=== PATIENT | female | born 1955 | race Caucasian/White ===

== ENCOUNTER → 2017-08-10 | Day surgery (SDC) | payer OTHER, MEDICARE ==
[~2017-08-10] MED LIST: CALTRATE 600 W1 EACH PO; CARBAMAZEPINE200 MG PO; CENTRUM SILVER1 EAC3; CEPHALEXIN500 M1 PO; DEXAMETHASONE SOD PHOS 10 MG/1 ML VIAL ONE; FENTANYL CITRATE/PF 100MCG/2 ML INJ ONE; FISH OIL500 M1 PO; FLAX SEED OIL1000 MG; GABAPENTIN300 MG PO; HYDROCHLOROTHIA25 MG PO; HYDROCODONE-AP1 EAC5 PO; IOPAMIDOL 200 MG/ML 20 ML VIAL IT ONE; LIDOCAINE HCL 1% 30ML-PF VIAL ONE; LYRICA75 MG PO; MIDAZOLAM HCL 2 MG/2 ML VIAL ONE; PROPOFOL IV EMULSION 10 MG/ML 20 ML VIAL ONE; VITAMIN C500 M1 PO; Z NIACIN PO; Z.0.ADULT LOW DOSE81 PO; Z.0.CALCIUM600 MG PO; Z.0.CARAFATE1 GM PO; Z.0.LOPRESSOR25 MG PO; Z.0.PANTOPRAZOLE SO4 PO; Z.0.PRINIVIL10 MG PO; [UNRECOGNIZED DRUG - OTHER] PO
== END | disposition home or self-care (01) ==
LOC: OR 05:10
PROVIDERS: ATTEND Physical Medicine & Rehabilitation Pain Medicine
DX: M54.16 Radiculopathy, lumbar region (principal); M96.1 Postlaminectomy syndrome, not elsewhere classified; M46.1 Sacroiliitis, not elsewhere classified; G57.00 Lesion of sciatic nerve, unspecified lower limb; G89.4 Chronic pain syndrome; M25.562 Pain in left knee; Z96.643 Presence of artificial hip joint, bilateral; I10 Essential (primary) hypertension; K21.9 Gastro-esophageal reflux disease without esophagitis; F32.9 Major depressive disorder, single episode, unspecified
CPT/HCPCS: 64483; 64484; J1100; J2001; J2250; Q9966; 77003

== ENCOUNTER → 2017-12-14 | Day surgery (SDC) | payer OTHER, MEDICARE ==
[~2017-12-14] MED LIST changes: +ASPIR 8181 MG PO; +BUPIVACAINE 0.25% 30ML SDV INJ ONE; -DEXAMETHASONE SOD PHOS 10 MG/1 ML VIAL ONE; +FISH OIL 1,0001 EAC2 PO
--- OUTSIDE RECORDS SUMMARY | 2017-12-14 05:37 | XMS REPORT | Clinical Summary ---
Author Author TAWANDA [facility] Address Unknown Phone Unavailable Care Team Providers Care Emerging Solutions Executive Name Role Phone PCP Unavailable Allergies No Known Allergies Current Medications Not on file Active Problems Not on file Social History Tobacco Use Types Packs/Day Years Used Date Never Assessed Sex Assigned at Date Recorded Not on file Last Filed Vital Signs Not on file Plan of Treatment Not on file Results Not on fileafter 12/13/2016
--- OUTSIDE RECORDS SUMMARY | 2017-12-14 05:37 | XMS REPORT | Clinical Summary ---
Author Author [facility] Organization [facility] Address Unknown Phone Unavailable Care Team Providers Care Garment Parts Cutter Machine Name Role Phone CuateBerny PCP Allergies Active Allergy Reactions Severity Noted Date Comments Adhesive Tape-Silicones Other (See Comments) High 02/02/2016 "takes my skin off"=-bandaid Other Other (See Comments) High 02/02/2016 Steroid- redness Current Medications Prescription Sig. Disp. Refills Start End Date Status Date LYRICA 75 mg capsule TK 1 C PO BID AND 2 CS PO 0 01/19/20 Active QHS - 16 pantoprazole (PROTONIX) Take 40 mg by mouth as Active 40 MG EC tablet needed. hydrochlorothiazide Take 25 mg by mouth every Active (HYDRODIURIL) 25 MG morning. tablet metoprolol tartrate Take 25 mg by mouth every Active (LOPRESSOR) 25 MG tablet morning. TAKE THE MORNING OF SURGERY lisinopril Take 10 mg by mouth every Active (PRINIVIL,ZESTRIL) 10 MG morning. tablet CALCIUM CARBONATE Take 1 tablet by mouth Active (CALTRATE 600 ORAL) every morning. Stop 08/12 MULTIVITAMIN ORAL Take 1 tablet by mouth Active every morning. STOP 08/12 ascorbic acid (vitamin C) Take 1,000 mg by mouth Active 1000 MG tablet daily. STOP 02/01 CINNAMON BARK (CINNAMON Take by mouth daily. Active ORAL) HYDROcodone-acetaminophen TK 2 TS PO Q 6 H PRN P Active (NORCO 10-325) 10-325 mg MAX 8 TS D per tablet furosemide (LASIX) 40 MG TK SS TO ONE T PO QD PRn Active tablet SWELLING gabapentin (NEURONTIN) gabapentin 300 mg capsule Active 300 MG capsule 1 bid and 2 At hs carBAMazepine (TEGretol) TK 1 T PO QAM AND 1 T PO 0 01/10/20 Active 200 mg tablet QPM AND 2 TS PO QHS 17 ondansetron (ZOFRAN) 8 MG TK 1 T PO Q 8 H PRN N 0 02/23/20 Active tablet 17 Active Problems Problem Noted Date Hip pain, left 03/10/2017 Chronic pain of left knee 03/10/2017 Aftercare following left hip joint replacement surgery 09/13/2016 Status post revision of total hip replacement 09/13/2016 Mechanical complication of hip prosthesis 08/05/2016 History of total left hip arthroplasty 06/07/2016 Pain in left hip 06/07/2016 History of arthroplasty of left hip 02/16/2016 Primary osteoarthritis of left hip 02/10/2016 Hip pain 02/04/2016 Osteoarthritis of hip 02/04/2016 Encounters Date Type Specialty Care Team Description 03/08/2017 Office Visit Orthopedic Surgery Magi, Mason Steven II, Pain in left hip (Primary MD Dx); Status post revision of total hip replacement; Hip pain, left; Chronic pain of left knee; Primary osteoarthritis of left knee after 12/13/2016 Family History Medical History Relation Name Comments Diabetes Brother STEPHIE Heart disease Brother STEPHIE Lymphoma Brother ANA Alcohol abuse Brother SHERIDAN Diabetes Brother MARIAELENA Diabetes Mother Leukemia Mother Leukemia Sister AMRIT No Known Problems Sister DAWOOD Leukemia Sister SABAS Relation Name Status Comments Brother STEPHIE Alive Brother ANA Alive Brother SHERIDAN Brother BENNETT PF MASSIVE HEART ATTACK Brother MARIAELENA Father OF HEART ATTACK Mother OF HEART ATTACK Sister AMRIT Alive Sister DAWOOD Alive Sister SABAS Alive Social History Tobacco Use Types Packs/Day Years Used Date Never Smoker Alcohol Use Drinks/Week oz/Week Comments No Sex Assigned at Date Recorded Not on file Last Filed Vital Signs Vital Sign Reading Time Taken Blood Pressure - - Pulse - - Temperature - - Respiratory Rate - - Oxygen Saturation - - Inhaled Oxygen - - Concentration Weight 129 kg (285 lb) 03/08/2017 10:12 AM CDT Height 170.2 cm (5' 7") 03/08/2017 10:12 AM CDT Body Mass Index 44.64 03/08/2017 10:12 AM CDT Plan of Treatment Health Maintenance Due Date Last Done Comments CERVICAL CANCER SCREENING 1976 BREAST CANCER SCREENING 2005 COLON CANCER SCREENING 2005 SHINGRIX VACCINE (#1) 2005 ZOSTER VACCINE 2015 INFLUENZA VACCINE 02/14/2018 Implants Implanted Type Area Sales Contract Administrator Device Expiration Model / Identifier Date Serial / Lot Shell Actblr Mul-Hl Sz Ii 52mm Hip Joint Left: Hip [employer] 2025 [id number] Continuum - [id number] Implants 2 / Implanted: Qty: 1 on 02/10/2016 by / Tim Reynoso MD [id number] Stem Hip Taper Kinectiv Tech Hip Joint Left: Hip [employer] 2025 [id number] Med-Lat [id number] - [id number] Implants 0 / Implanted: Qty: 1 on 02/10/2016 by / Tim Reynoso MD [id number] Head Feml Ceramc 12/14 Taperd Hip Joint Left: Hip [employer] 2024 [id number] 36x0mm Biolox Delta - [id number] Implants 2 / Implanted: Qty: 1 on 02/10/2016 by / Tim Reynoso MD [id number] Head Feml Ceramc /14 Taperd Hip Joint Left: Hip [employer] 2025 [id number] 36x0mm Biolox Delta - [id number] Implants 2 / Implanted: Qty: 1 on 09/01/2016 by / Mason Sow II, MD [id number] Vit E Liner Neutral Ii 36 IPM Left: Hip [employer] 05/16/2020 00 8851 - [id number] IMPLANT 010 36 / Implanted: Qty: 1 on 02/10/2016 by ELIER / Tim Reynoso MD [id number] M/L Taper Kinectiv Neck Implant E1 IPM Left: Hip [employer] 2024 00 7848 - [id number] IMPLANT 012 01 / Implanted: Qty: 1 on 02/10/2016 by ELIER / Tim Reynoso MD [id number] M/L Taper Kinectiv Neck Implant Bb IPM Left: Hip [employer] 2025 00 7848 - [id number] IMPLANT 022 01 / Implanted: Qty: 1 on 09/01/2016 by DEVICES / Mason Sow II, MD [id number] Continuum Longevity Oblique Liner, IPM Left: Hip [employer] 2019 00 8755 Ii 36 X 52 - [id number] IMPLANT 010 36 / Implanted: Qty: 1 on 09/01/2016 by ELIER / Mason Sow II, MD [id number] Screw Bone Slf-Tap 6.5x30mm Trilogy Orthopedic Left: Hip [employer] [id number] - [id number] Trauma 0 / Implanted: Qty: 1 on 02/10/2016 by Carlee / Tim Reynoso MD Screw Bone Slf-Tap 6.5x25mm Trilogy Orthopedic Left: Hip [employer] [id number] - [id number] Trauma 5 / Implanted: Qty: 1 on 02/10/2016 by Carlee / Tim Reynoso MD Natasha Kinnectiv Left Hip Prosthesis Procedures Procedure Name Priority Date/Time Associated Diagnosis Comments [place] ARTHROCENTESIS Routine 03/10/2017 Primary osteoarthritis of Results for this ASPIR&/INJ MAJOR JT/BURSA 12:21 AM CDT left knee procedure are in the W/O US results section. after 12/13/2016 Results * Large Joint Arthrocentesis (03/10/2017 12:21 AM) Narrative Mason Sow II, MD 03/10/2017 12:21 AM Large Joint Arthrocentesis Consent given by: patient Supporting Documentation Indications: pain Procedure Details Location: knee - L knee Left side: Approach: anterior Left knee medications administered: 3 mL lidocaine 10 mg/mL (1 %) * XR Knee 4+ Vw Left (03/08/2017 10:49 AM) Specimen Performing Laboratory [facility] [address] [place] [address] Narrative X-rays of the knee suggest significant osteoarthrosis, I injected this today.We discussed conservative management modalities including periodic injections, weight loss, activity etc.Follow-up as needed. * XR Hip 2-3 View Left (03/08/2017 10:21 AM) Specimen Performing Laboratory [facility] [address] [place] [address] Narrative Well seated, satisfactory aligned total hip arthroplasty.No evidence of fracture, subsidence, loosening, or lysis. after 12/13/2016 Insurance Payer Benefit Subscriber ID Type Phone Address Plan / Group [facility] xxxxxxxxx HMO/PPO THCARE CHOICE/CHO ICE + MEDICARE MEDICARE xxxxxxxxxx Medicare [place], [place] PART A AND B Home:
[2017-12-14 07:15] LABS: BLOOD UREA NITROGEN 24 mg/dL (7-26); BUN/CREATININE RATIO 32 (6-25); CALCIUM 9.6 mg/dL (8.4-10.2); CARBON DIOXIDE 29 mmol/L (22-29); CHLORIDE 100 mmol/L (98-107); CREATININE, SERUM 0.75 mg/dL (0.57-1.11); EST GLOMERULAR FILTRATION RATE > 60 ML/MIN (60-); GLUCOSE 90 mg/dL (74-118); SODIUM 139 mmol/L (136-145)
== END | disposition home or self-care (01) ==
LOC: OR 05:34
PROVIDERS: ATTEND Physical Medicine & Rehabilitation Pain Medicine
DX: G50.0 Trigeminal neuralgia (principal); G90.59 Complex regional pain syndrome I of other specified site; M54.16 Radiculopathy, lumbar region; Z96.642 Presence of left artificial hip joint; M46.1 Sacroiliitis, not elsewhere classified; G57.00 Lesion of sciatic nerve, unspecified lower limb; M25.562 Pain in left knee; G89.4 Chronic pain syndrome; M48.062 Spinal stenosis, lumbar region with neurogenic claudication; M96.1 Postlaminectomy syndrome, not elsewhere classified; I10 Essential (primary) hypertension; K21.9 Gastro-esophageal reflux disease without esophagitis; F32.9 Major depressive disorder, single episode, unspecified; Z88.5 Allergy status to narcotic agent; Z01.810 Encounter for preprocedural cardiovascular examination; Z68.30 Body mass index [BMI] 30.0-30.9, adult
CPT/HCPCS: 36415; 64510; 80048; 93005; J2001; J2250; Q9966; 77003

== ENCOUNTER → 2018-01-04 | Day surgery (SDC) | payer OTHER, MEDICARE ==
[~2018-01-04] MED LIST changes: +LIDOCAINE HCL 2% LOCAL INJ 5 ML SDV VIAL INJ ONE; -MIDAZOLAM HCL 2 MG/2 ML VIAL ONE
--- OUTSIDE RECORDS SUMMARY | 2018-04-18 13:48 | XMS REPORT | Clinical Summary ---
Author Author TAWANDA [facility] Address Unknown Phone Unavailable Care Team Providers Care Occupational Health Physiotherapist Name Role Phone PCP Unavailable Allergies No Known Allergies Current Medications Not on file Active Problems Not on file Social History Tobacco Use Types Packs/Day Years Used Date Never Assessed Sex Assigned at Date Recorded Not on file Last Filed Vital Signs Not on file Plan of Treatment Not on file Results Not on fileafter 01/03/2017
--- OUTSIDE RECORDS SUMMARY | 2018-04-18 13:48 | XMS REPORT | Clinical Summary ---
Author Author [facility] Organization [facility] Address Unknown Phone Unavailable Care Team Providers Care Assistant Spa Director Name Role Phone CuateBerny PCP Allergies Active [...] replacement 09/13/2016 Mechanical complication of hip prosthesis (HCC) 08/05/2016 History of total left hip arthroplasty [...] knee; Primary osteoarthritis of left knee after 01/03/2017 Family History Medical History Relation Name Comments [...] INFLUENZA VACCINE 02/14/2018 Implants Implanted Type Area Reflow Operator Device Expiration Model / Identifier Date Serial / Lot Shell Actblr Mul-Hl Sz Ii 52mm Hip Joint Left: Hip [employer] 2025 [id number] Continuum - [id number] Implants 2 / Implanted: Qty: 1 on 02/10/2016 by / Tim Reynoso MD [id number] Stem Hip Taper Kinectiv Tech Hip Joint Left: Hip [employer] 2025 [id number] Med-Lat [id number] - [id number] Implants 0 / Implanted: Qty: 1 on 02/10/2016 by / Tim Reynoso MD [id number] Head Feml Ceramc /14 Taperd Hip Joint Left: Hip [employer] 2024 [id number] 36x0mm Biolox Delta - [id number] Implants 2 / Implanted: Qty: 1 on 02/10/2016 by / Tim Reynoso MD [id number] Head Feml Ceramc 14 Taperd Hip Joint Left: Hip [employer] 2025 [id number] 36x0mm Biolox Delta - [id number] Implants 2 / Implanted: Qty: 1 on 09/01/2016 by / Mason Sow II, MD [id number] Vit E Liner Neutral Ii 36 IPM Left: Hip [employer] 05/16/2020 00 8851 - [id number] IMPLANT 010 36 / Implanted: Qty: 1 on 02/10/2016 by ELIER / Tim Reynoso MD [id number] M/L Taper Kinectiv Neck Implant E1 IPM Left: Hip [employer] 2024 00 7848 - [id number] IMPLANT 012 01 / Implanted: Qty: 1 on 02/10/2016 by ELIER / Tim Reynoso MD [id number] M/L Taper Kinectiv Neck Implant Bb IPM Left: Hip [employer] 2025 00 7848 - [id number] IMPLANT 022 01 / Implanted: Qty: 1 on 09/01/2016 by ELIER / Mason Sow II, MD [id number] Continuum Longevity Oblique Liner, IPM Left: Hip [employer] 2019 00 8755 Ii 36 X 52 - [id number] IMPLANT 010 36 / Implanted: Qty: 1 on 09/01/2016 by DEVICES / Mason Sow II, MD [id number] Screw Bone Slf-Tap 6.5x30mm Trilogy Orthopedic Left: Hip [employer] [id number] - [id number] Trauma 0 / Implanted: Qty: 1 on 02/10/2016 by Carlee / Tim Reynoso MD Screw Bone Slf-Tap 6.5x25mm Trilogy Orthopedic Left: Hip [employer] [id number] - [id number] Trauma 5 / Implanted: Qty: 1 on 02/10/2016 by Carlee / Tim Reynoso MD Zimmer Kinnectiv Left Hip Prosthesis Procedures Procedure Name Priority Date/Time Associated Diagnosis Comments [place] ARTHROCENTESIS Routine 03/10/2017 Primary osteoarthritis of Results for this ASPIR&/INJ MAJOR JT/BURSA 12:21 AM CDT left knee procedure are in the W/O US results section. XR KNEE 4+ VW LEFT Routine 03/08/2017 Chronic pain of left knee Results for this 10:49 AM CDT procedure are in the results section. XR HIP 2-3 VIEWS LEFT Routine 03/08/2017 Pain in left hip Results for this 10:21 AM CDT procedure are in the results section. after 01/03/2017 Results * Large Joint Arthrocentesis (03/10/2017 12:21 AM) Narrative Performed At Mason Sow II, MD 03/10/2017 12:21 AM Large Joint Arthrocentesis Consent given by: patient Supporting Documentation Indications: pain Procedure Details Location: knee - L knee Left side: Approach: anterior Left knee medications administered: 3 mL lidocaine 10 mg/mL (1 %) * XR Knee 4+ Vw Left (03/08/2017 10:49 AM) Narrative Performed At [facility] X-rays of the knee suggest significant osteoarthrosis, I injected this today. We discussed conservative management modalities including periodic injections, weight loss, activity etc. Follow-up as needed. Performing Organization Address City/State/Zipcode Phone Number [facility] [address] [place] [address] * XR Hip 2-3 View Left (03/08/2017 10:21 AM) Narrative Performed At [facility] Well seated, satisfactory aligned total hip arthroplasty. No evidence of fracture, subsidence, loosening, or lysis. Performing Organization Address City/State/Zipcode Phone Number CLAUDIA FORREST [address] [place] [address] after 01/03/2017 Insurance Payer Benefit Subscriber ID Type Phone Address Plan / Group [facility] xxxxxxxxx HMO/PPO THCARE CHOICE/CHO ICE + MEDICARE MEDICARE xxxxxxxxxx Medicare [place], [place] PART A AND B Home:
== END | disposition home or self-care (01) ==
LOC: OR 05:24
PROVIDERS: ATTEND Physical Medicine & Rehabilitation Pain Medicine
DX: G50.0 Trigeminal neuralgia (principal); M54.16 Radiculopathy, lumbar region; M46.1 Sacroiliitis, not elsewhere classified; G57.00 Lesion of sciatic nerve, unspecified lower limb; M25.562 Pain in left knee; G89.4 Chronic pain syndrome; G90.511 Complex regional pain syndrome I of right upper limb; Z96.642 Presence of left artificial hip joint; I10 Essential (primary) hypertension; E66.01 Morbid (severe) obesity due to excess calories; F32.9 Major depressive disorder, single episode, unspecified; Z88.5 Allergy status to narcotic agent; Z79.82 Long term (current) use of aspirin
CPT/HCPCS: 64510; 77003; J2001 ×2; Q9966

== ENCOUNTER → 2018-03-16 | Outpatient (CLI) | payer OTHER, MEDICARE ==
[~2018-03-16] MED LIST changes: -BUPIVACAINE 0.25% 30ML SDV INJ ONE; -FENTANYL CITRATE/PF 100MCG/2 ML INJ ONE; -IOPAMIDOL 200 MG/ML 20 ML VIAL IT ONE; -LIDOCAINE HCL 1% 30ML-PF VIAL ONE; -LIDOCAINE HCL 2% LOCAL INJ 5 ML SDV VIAL INJ ONE; -PROPOFOL IV EMULSION 10 MG/ML 20 ML VIAL ONE
--- NOTE | 2018-03-16 15:50 | Diagnostic Imaging Report ---
CT scan of the LEFT HAND, WITHOUT contrast. TECHNIQUE: Standard departmental protocols were used. Coronal and sagittal reformats are available. Mild beam hardening artifacts related to the overlying splint. Dose modulation, iterative reconstruction, and/or weight based adjustment of the mA/kV was utilized to reduce the radiation dose to as low as reasonably achievable. HISTORY: Displaced fracture of base of first metacarpal bone, fall COMPARISON: None available FINDINGS: Bones: No acute displaced fracture. Prominent marginal osteophytes about the first carpometacarpal joint. The scapholunate interval is mildly widened, 4 mm. Ulnar minus variance. Joints: Severe degenerative changes of the first carpometacarpal joint with radial subluxation of the base of the first metacarpal bone. A chronic appearing ossified body along the radial side of the joint, measuring up to 8 mm. Soft tissues: Volar soft tissue fat stranding. IMPRESSION: 1. Severe osteoarthrosis of the first carpometacarpal joint. 2. Widening of the scapholunate interval, correlate for scapholunate ligament insufficiency. 3. No acute displaced fracture involving the base of the first metacarpal bone. Signed by: Dr. Flavio Heath D.O., M.M.M. on 03/16/2018 3:47 PM
== END ==
LOC: CT 13:52
PROVIDERS: ATTEND Specialist
DX: S62.232A Other displaced fracture of base of first metacarpal bone, left hand, initial encounter for closed fracture (principal)

== ENCOUNTER → 2018-05-17 | Day surgery (SDC) | payer OTHER, MEDICARE ==
[~2018-05-17] MED LIST changes: +CENTRUM SILVER1 EAC3 PO; +FENTANYL CITRATE/PF 100MCG/2 ML INJ ONE; +IOPAMIDOL 200 MG/ML 20 ML VIAL IT ONE; +LIDOCAINE HCL 1% 30ML-PF VIAL ONE; +LIDOCAINE HCL 2% LOCAL INJ 5 ML SDV VIAL INJ ONE; +MIDAZOLAM HCL 2 MG/2 ML VIAL ONE; +ONDANSETRON HCL INJ 2 MG/ML VIAL ONE; +PROPOFOL IV EMULSION 10 MG/ML 20 ML VIAL ONE; +TRIAMCINOLONE ACET 40 MG/ML VIAL ONE; +VITAMIN C1000 MG PO
--- OUTSIDE RECORDS SUMMARY | 2018-05-17 05:35 | XMS REPORT | Continuity of Care Document ---
Author Author [facility] Address Unknown Phone Unavailable Problems Problem Status Onset Date Classification Date Reported Comments Source TRIGEMINAL NEURALGIA Active 09/17/2012 [facility] TRIGEMINAL NEURALGIA Active [facility] Medications Medication Details Route Status Patient Instructions Ordering Provider Order Date Source Allergies, Adverse Reactions, Alerts Substance Category Reaction Severity Reaction type Status Date Reported Comments Source Immunizations Immunization Date Given Site Status Last Updated Comments Source Results Order Name Results Value Reference Range Date Interpretation Comments Source Vital Signs Vital Sign Value Date Comments Source Height 170.18 cm 10/10/2012 [facility] Weight 124.091 10/10/2012 [facility] Encounters Location Location Details Encounter Type Encounter Number Reason For Visit Attending Provider ADM Date DC Date Status Source [facility] MADDIE [id number] TRIGEMINAL NEURALGIA CLARI HANEY 05/23/2012 05/23/2012 Active [facility] MADDIE [id number] TRIGEMINAL NEURALGIA CLARI HANEY 10/10/2012 10/10/2012 Active [facility] MADDIE [id number] TRIGEMINAL NEURALGIA CLARI HANEY Cancel [facility] Procedures Procedure Code Date Perfomer Comments Source
--- OUTSIDE RECORDS SUMMARY | 2018-05-17 05:35 | XMS REPORT | CCD ---
Author Author Auto Generated Organization [facility] [place] [place] Address Unknown Phone Unavailable Care Team Providers Care Ball Warper Tender Name Role Phone Emiliano Hoffmann I RP Kenneth Simental CP Allergies, Adverse Reactions, Alerts Substance Reaction Status NKDA Active Vital Signs Most recent to oldest [Reference Range]: 1 Height 170.18 cm (10/10/2012 08:50:00) Weight 124.091 kg (10/10/2012 08:50:00)
--- OUTSIDE RECORDS SUMMARY | 2018-05-17 05:35 | XMS REPORT | Clinical Summary ---
Author Author [facility] Address Unknown Phone Unavailable Care Team Providers Care Alumina Plant Supervisor Name Role Phone Kraig Cuello DO PCP Allergies Active Allergy Reactions Severity Noted [...] Hip pain 02/04/2016 Osteoarthritis of hip 02/04/2016 Family History Medical History Relation Name Comments [...] OF HEART ATTACK Sister AMRIT Alive Sister DAWODO Alive Sister SABAS Alive Social History Tobacco Use Types Packs/Day Years Used Date Never Smoker Alcohol Use Drinks/Week oz/Week Comments No Sex Assigned at Date Recorded Not on file Last Filed Vital Signs Not on file Plan of Treatment Health Maintenance Due Date Last Done Comments CERVICAL CANCER SCREENING 1976 BREAST CANCER SCREENING 2005 COLON CANCER SCREENING 2005 SHINGRIX VACCINE (#1) 2005 ZOSTER VACCINE 2015 INFLUENZA VACCINE 02/14/2018 Implants Implanted Type Area Lime Vat Tender Device Expiration Model / Identifier Date Serial / Lot Shell Actblr Mul-Hl Sz Ii 52mm Hip Joint Left: Hip [employer] 10/14/2025 [id number] Continuum - [id number] Implants 2 / Implanted: Qty: 1 on 02/10/2016 by / Tim Reynoso MD [id number] Stem Hip Taper Kinectiv Tech Hip Joint Left: Hip [employer] 09/13/2025 [id number] Med-Lat [id number] - [id number] Implants 0 / Implanted: Qty: 1 on 02/10/2016 by / Tim Reynoso MD [id number] Head Feml Ceramc 12/14 Taperd Hip Joint Left: Hip [employer] 05/16/2025 [id number] 36x0mm Biolox Delta - [id number] Implants 2 / Implanted: Qty: 1 on 02/10/2016 by / Tim Reynoso MD [id number] Head Feml Ceramc 12/14 Taperd Hip Joint Left: Hip [employer] 10/14/2025 [id number] 36x0mm Biolox Delta - [id number] Implants 2 / Implanted: Qty: 1 on 09/01/2016 by / Mason Sow II, MD [id number] Vit E Liner Neutral Ii 36 IPM Left: Hip [employer] 05/16/2020 00 8851 - [id number] IMPLANT 010 36 / Implanted: Qty: 1 on 02/10/2016 by DEVICES / Tim Reynoso MD [id number] M/L Taper Kinectiv Neck Implant E1 IPM Left: Hip [employer] 08/16/2024 00 7848 - [id number] IMPLANT 012 01 / Implanted: Qty: 1 on 02/10/2016 by DEVICES / Tim Reynoso MD [id number] M/L Taper Kinectiv Neck Implant Bb IPM Left: Hip [employer] 10/14/2025 00 7848 - [id number] IMPLANT 022 01 / Implanted: Qty: 1 on 09/01/2016 by DEVICES / Mason Sow II, MD [id number] Continuum Longevity Oblique Liner, IPM Left: Hip [employer] 05/16/2020 00 8755 Ii 36 X 52 - [id number] IMPLANT 010 36 / Implanted: Qty: 1 on 09/01/2016 by DEVICES / Mason Sow II, MD [id number] Screw Bone Slf-Tap 6.5x30mm Trilogy Orthopedic Left: Hip [employer] [id number] - [id number] Trauma 0 / Implanted: Qty: 1 on 02/10/2016 by Implants / Tim Reynoso MD Screw Bone Slf-Tap 6.5x25mm Trilogy Orthopedic Left: Hip [employer] [id number] - [id number] Trauma 5 / Implanted: Qty: 1 on 02/10/2016 by Implants / Tmi Reynoso MD Zimmer Kinnectiv Left Hip Prosthesis Results Not on fileafter 05/16/2017 Insurance Payer Benefit Subscriber ID Type Phone Address Plan / Group [facility] xxxxxxxxx HMO/PPO THCARE CHOICE/CHO ICE + MEDICARE MEDICARE xxxxxxxxxx Medicare [place], [place] PART A AND B Home:
--- OUTSIDE RECORDS SUMMARY | 2018-05-17 05:35 | XMS REPORT | Clinical Summary ---
Author Author TAWANDA [facility] Address Unknown Phone Unavailable Care Team Providers Care Through Operator Name Role Phone Kraig Cuello PCP Allergies No Known Allergies Medications Not on file Active Problems Not on file Social History Date Tobacco Use Types Packs/Day Years Used Never Assessed Sex Assigned at Date Recorded Not on file Industry Job Start Date Occupation Not on file Not on file Not on file Travel End Travel History Travel Start No recent travel history available. Last Filed Vital Signs Not on file Plan of Treatment Not on file Results Not on fileafter 05/16/2017 Insurance Payer Benefit Subscriber ID Type Phone Address Plan / Group MEDICARE MEDICARE A xxxxxxxxxx Medicare [facility] H[facility]/POS CARE POS SELECT CHOICE
--- OUTSIDE RECORDS SUMMARY | 2018-05-17 05:35 | XMS REPORT ---
Author [facility] Address Unknown Phone Unavailable Care Team Providers Care Fiscal Services Manager Name Role Phone MAGDALENO CONNER Unavailable Unavailable Payers Payer Name Policy Type Policy Number Effective Date Expiration Date Problems This patient has no known problems. Allergies, Adverse Reactions, Alerts Allergy Name Allergy Type Status Severity Reaction(s) Onset Date Inactive Date Treating Clinician Comments methylprednisolone DA Active [place] 2018-02-14 00:00:00 Medications This patient has no known medications. Results Test Description Test Time Test Comments Text Results Atomic Results Result Comments CT HAND LEFT WO 2018-03-16 15:33:00 [place] [address] Patient Name: VALENCIA CASPER MR #: [id number] : 1955 Age/Sex: 62/F Req #: [id number] Adm Physician: Ordered by: MAGDALENO CONNER MD Report #: [id number] Location: CT Room/Bed: Procedure: [id number] CT/CT HAND LEFT WO Exam Date: 03/16/18 Exam Time: 1450 REPORT STATUS: Signed CT scan of the LEFT HAND, WITHOUT contrast. TECHNIQUE: Standard departmental protocols were used. Coronal and sagittal reformats are available. Mild beam hardening artifacts related to the overlying splint. Dose modulation, iterative reconstruction, and/or weight based adjustment of the mA/kV was utilized to reduce the radiation dose to as low as reasonably achievable. HISTORY: Displaced fracture of base of first metacarpal bone, fall COMPARISON: None available FINDINGS: Bones: No acute displaced fracture. Prominent marginal osteophytes about the first carpometacarpal joint. The scapholunate interval is mildly widened, 4 mm. Ulnar minus variance. Joints: Severe degenerative changes of the first carpometacarpal joint with radial subluxation of the base of the first metacarpal bone. A chronic appearing ossified body along the radial side of the joint, measuring up to 8 mm. Soft tissues: Volar soft tissue fat stranding. IMPRESSION: 1. Severe osteoarthrosis of the first carpometacarpal joint. 2. Widening of the scapholunate interval, correlate for scapholunate ligament insufficiency. 3. No acute displaced fracture involving the base of the first metacarpal bone. Signed by: Dr. Fercho Heath D.O., M.M.M. on 03/16/2018 3:47 PM Dictated By: FERCHO HEATH DO 1547 Transcribed By: ZEKE on 03/16/18 154 COPY TO: MAGDALENO CONNER MD
[2018-05-17 07:40] VITALS: BP 104/65
== END | disposition home or self-care (01) ==
LOC: OR 05:32
PROVIDERS: ATTEND Physical Medicine & Rehabilitation Pain Medicine
DX: M47.896 Other spondylosis, lumbar region (principal); M54.16 Radiculopathy, lumbar region; G89.4 Chronic pain syndrome; M48.07 Spinal stenosis, lumbosacral region; Z88.5 Allergy status to narcotic agent
CPT/HCPCS: 64493; 64494; 64495; 77003; 93005; J2001 ×2; J2250; J2405; J2704; J3301; Q9967

== ENCOUNTER → 2018-06-15 | Outpatient (CLI) | payer OTHER, MEDICARE ==
[~2018-06-15] MED LIST changes: -FENTANYL CITRATE/PF 100MCG/2 ML INJ ONE; -IOPAMIDOL 200 MG/ML 20 ML VIAL IT ONE; -LIDOCAINE HCL 1% 30ML-PF VIAL ONE; -LIDOCAINE HCL 2% LOCAL INJ 5 ML SDV VIAL INJ ONE; -MIDAZOLAM HCL 2 MG/2 ML VIAL ONE; -ONDANSETRON HCL INJ 2 MG/ML VIAL ONE; -PROPOFOL IV EMULSION 10 MG/ML 20 ML VIAL ONE; -TRIAMCINOLONE ACET 40 MG/ML VIAL ONE
--- NOTE | 2018-06-15 13:20 | Diagnostic Imaging Report ---
MRI of the right hip without contrast. History: Hip pain. Decreased range of motion. Pain worse with walking. Pain not responding to conservative management. Technique: Multiplanar multisequence MRI of the hip without contrast Findings: Metallic hardware artifact in the left hip obscures fine detail of the region. Scattered degenerative changes are seen about the visualized lower lumbar spine and pelvis. The urinary bladder and remainder of the visualized pelvic structures are grossly unremarkable. There is a curvilinear low signal intensity line in the right femoral head best seen on series 3 image 16. There is associated bone marrow edema and depression of the femoral head cortex. 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 There is superimposed advanced degenerative arthrosis in the right hip joint with regions of full-thickness articular cartilage loss, joint space narrowing and peripheral osteophytosis. There is degenerative type tearing of the labrum. There is a right hip joint effusion and synovitis which is thought to be reactive. There is no evidence to suggest greater trochanteric bursitis. The visualized neurovascular bundles are intact. The visualized muscles are normal in size, signal intensity and morphology. Impression: Findings consistent with avascular process in the right femoral head with superimposed advanced degenerative arthrosis as described above. Signed by: Dr. Kenton Beebe M.D. on 06/15/2018 1:17 PM
== END ==
LOC: MRI 11:19
PROVIDERS: ATTEND Physical Medicine & Rehabilitation Pain Medicine
DX: M25.551 Pain in right hip (principal)

== ENCOUNTER → 2018-06-29 | Outpatient (CLI) | payer OTHER, MEDICARE ==
--- NOTE | 2018-07-05 08:25 | Diagnostic Imaging Report ---
#[id number] - MGSCRBIL #BILATERAL DIGITAL SCREENING MAMMOGRAM WITH CAD: 06/29/2018 CLINICAL: Routine screening. Comparison is made to exam dated: 12/13/2013 mammogram - [facility]. Current study contains 4 films. There are scattered fibroglandular elements in both breasts. Current study was also evaluated with a Computer Aided Detection (CAD) system. There are benign vascular calcifications and calcifications in both breasts. No significant masses, calcifications, or other findings are seen in either breast. There has been no significant interval change. IMPRESSION: BENIGN There is no mammographic evidence of malignancy. A 1 year screening mammogram is recommended. The patient will be notified by letter of the results. Ceferino cuba/chance:07/04/2018 16:13:39 Ceramic Engineer: Christy CHEEK)(Inna), [facility] letter sent: Compared to Prior B9 Mammogram BI-RADS: 2 Benign
== END ==
LOC: MAMMO 13:10
PROVIDERS: ATTEND Family Medicine
DX: Z12.31 Encounter for screening mammogram for malignant neoplasm of breast (principal)
CPT/HCPCS: 77067

== ENCOUNTER → 2019-02-07 | Day surgery (SDC) | payer OTHER, MEDICARE ==
[~2019-02-07] MED LIST changes: +FENTANYL CITRATE/PF 100MCG/2 ML INJ ONE; +IOPAMIDOL 200 MG/ML 20 ML VIAL IT ONE; +LIDOCAINE HCL 1% 30ML-PF VIAL ONE; +LIDOCAINE HCL 2% LOCAL INJ 5 ML SDV VIAL INJ ONE; +MIDAZOLAM HCL 2 MG/2 ML VIAL ONE; +NORCO 10-325 T1 EACH PO; +PROPOFOL IV EMULSION 10 MG/ML 20 ML VIAL ONE; +TRIAMCINOLONE ACET 40 MG/ML VIAL ONE
--- OUTSIDE RECORDS SUMMARY | 2019-02-07 05:29 | XMS REPORT | Clinical Summary ---
Author Author [facility] Address Unknown Phone Unavailable Care Team Providers Care Outreach Rep Name Role Phone Kraig Cuello DO PCP Allergies Comments Active Allergy Reactions Severity Noted Date "takes my skin off"=-bandaid Adhesive Tape-Silicones Other (See High 02/02/2016 Comments) Steroid- redness Other Other (See High 02/02/2016 Comments) Medications End Date Status Medication Sig Dispensed Refills Start Date Active LYRICA 75 mg capsule TK 1 C PO BID 0 AND 2 CS PO 6 QHS - Active pantoprazole (PROTONIX) Take 40 mg by 0 40 MG EC tablet mouth as needed. Active hydrochlorothiazide Take 25 mg by 0 (HYDRODIURIL) 25 MG mouth every tablet morning. Active metoprolol tartrate Take 25 mg by 0 (LOPRESSOR) 25 MG tablet mouth every morning. TAKE THE MORNING OF SURGERY Active lisinopril Take 10 mg by 0 (PRINIVIL,ZESTRIL) 10 MG mouth every tablet morning. Active CALCIUM CARBONATE Take 1 tablet 0 (CALTRATE 600 ORAL) by mouth every morning. Stop 08/12 Active MULTIVITAMIN ORAL Take 1 tablet 0 by mouth every morning. STOP 08/12 Active ascorbic acid (vitamin C) Take 1,000 mg 0 1000 MG tablet by mouth daily. STOP 02/01 Active CINNAMON BARK (CINNAMON Take by mouth 0 ORAL) daily. Active HYDROcodone-acetaminophen TK 2 TS PO Q 0 (NORCO 10-325) 10-325 mg 6 H PRN P MAX per tablet 8 TS D Active furosemide (LASIX) 40 MG TK SS TO ONE 0 tablet T PO QD PRn SWELLING Active gabapentin (NEURONTIN) gabapentin 0 300 MG capsule 300 mg capsule 1 bid and 2 At hs Active carBAMazepine (TEGretol) TK 1 T PO QAM 0 200 mg tablet AND 1 T PO 7 QPM AND 2 TS PO QHS Active ondansetron (ZOFRAN) 8 MG TK 1 T PO Q 8 0 tablet H PRN N 7 Active Problems Problem Noted Date Hip pain, [...] DAWOOD Alive Sister SABAS Alive Social History Date Tobacco Use Types Packs/Day Years Used Never Smoker Alcohol Use Drinks/Week oz/Week Comments No Sex Assigned at Date Recorded Not on file Industry Job Start Date Occupation Not on file Not on file Not on file Travel End Travel History Travel Start No recent travel history available. Last Filed Vital Signs Not on file Plan of Treatment Health Maintenance Due Date Last Done Comments BREAST CANCER SCREENING 2005 COLONOSCOPY SCREENING 2005 SHINGLES VACCINES (#1) 2005 INFLUENZA VACCINE 02/14/2019 Implants Device Identifier Shelf Expiration Date Model / Serial / Lot Implanted Type Area Manufactur er 10/14/2025 [id number] / / [id number] Shell Actblr Mul-Hl Sz Ii 52mm Hip Joint Left: Hip [employer] Continuum - [id number] Implants Implanted: Qty: 1 on 02/10/2016 by Tim Reynoso MD 09/13/2025 [id number] / / [id number] Stem Hip Taper Kinectiv Tech Hip Joint Left: Hip [employer] Med-Lat 1w505wd - [id number] Implants Implanted: Qty: 1 on 02/10/2016 by Tim Reynoso MD 05/16/2025 [id number] / / [id number] Head Feml Ceramc 12/14 Taperd Hip Joint Left: Hip [employer] 36x0mm Biolox Delta - [id number] Implants Implanted: Qty: 1 on 02/10/2016 by Tim Reynoso MD 10/14/2025 [id number] / / [id number] Head Feml Ceramc 12/14 Taperd Hip Joint Left: Hip [employer] 36x0mm Biolox Delta - [id number] Implants Implanted: Qty: 1 on 09/01/2016 by Mason Sow II, MD 05/16/2020 [id number] / / [id number] Vit E Liner Neutral Ii 36 IPM Left: Hip [employer] - [id number] IMPLANT Implanted: Qty: 1 on 02/10/2016 by DEVICES Tim Reynoso MD 08/16/2024 [id number] / / [id number] M/L Taper Kinectiv Neck Implant E1 IPM Left: Hip [employer] - [id number] IMPLANT Implanted: Qty: 1 on 02/10/2016 by DEVICES Tim Reynoso MD 10/14/2025 00 [id number] / / [id number] M/L Taper Kinectiv Neck Implant Bb IPM Left: Hip [employer] - [id number] IMPLANT Implanted: Qty: 1 on 09/01/2016 by DEVICES Mason Sow II, MD 05/16/2020 00 [id number] 36 / / [id number] Continuum Longevity Oblique Liner, IPM Left: Hip [employer] Ii 36 X 52 - [id number] IMPLANT Implanted: Qty: 1 on 09/01/2016 by DEVICES Mason Sow II, MD [id number] / / Screw Bone Slf-Tap 6.5x30mm Trilogy Orthopedic Left: Hip [employer] - [id number] Trauma Implanted: Qty: 1 on 02/10/2016 by Implants Tim Reynoso MD [id number] / / Screw Bone Slf-Tap 6.5x25mm Trilogy Orthopedic Left: Hip [employer] - [id number] Trauma Implanted: Qty: 1 on 02/10/2016 by Implants Tim Reynoso MD [employer]asha Kinnectiv Left Hip Prosthesis Results Not on fileafter 02/06/2018 Insurance Type Payer Benefit Subscriber ID Effective Phone Address Plan / Dates Group HMO/PPO [facility] xxxxxxxxx 2015-P THCARE resent CHOICE/CHO ICE + Medicare MEDICARE MEDICARE xxxxxxxxxx 2006-P ANISH, PART A AND resent [place] B Advance Directives Patient has advance care planning documents on file. For more information, rosalio hawk contact: Anish Dacosta [address] [place] [address]
--- OUTSIDE RECORDS SUMMARY | 2019-02-07 05:29 | XMS REPORT | Clinical Summary ---
Author Author [facility] Address Unknown Phone Unavailable Care Team Providers Care Outbound Sales Representative Name Role Phone Kraig Cuello PCP Allergies [...] Not on file Results Not on fileafter 02/06/2018 Insurance Payer Benefit Subscriber ID Type Phone Address Plan / Group MEDICARE MEDICARE A xxxxxxxxxx Medicare B [facility] H[facility]/POS CARE POS SELECT CHOICE viviane (Home) [place] [address]
--- OUTSIDE RECORDS SUMMARY | 2019-02-07 05:30 | XMS REPORT | Continuity of Care Document ---
Author Author [facility] Address Unknown Phone Unavailable Care Team Providers Care Heel Se[employer] Name Role Phone [employer] Information Intr[employer] Unavailable Unavailable Problems Problem Status Onset Date Classification Date Reported Comments Source UNK Active 09/25/2018 [facility] HIP Active 06/16/2018 [facility] [place] TRIGEMINAL NEURALGIA Active 09/17/2012 [facility] Backache1 Active 05/09/2012 Problem 01/03/2019 Data migrated from [employer] on 03/10/15. [facility] [place] Risk for falls Active Problem 01/03/2019 [facility] [place] SOBOE (Confirmed) Active Problem 01/03/2019 [facility] [place] Cervical cancer Resolved Problem 01/03/2019 [facility] [place] Right facial numbness2 Active Problem 01/03/2019 with shooting pains [facility] [place] DJD (Confirmed)3 Active Problem 01/03/2019 right hip [facility] [place] Lumbar herniated disc Active Problem 01/03/2019 [facility] [place] Trigeminal neuralgia4 Active Problem 01/03/2019 Data migrated from [employer] on 03/10/15. 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 (Same as: Tylenol) Inactive 10/15/2018 [facility] Tylenol 325 mg, 1 supp, Route: NV, Drug form: SUPP, Q4H, Dosing Weight 90.364, kg, PRN Pain Score 4-6, Start date: 10/15/18 8:37:00 CDT, Duration: 30 day, Stop date: 11/14/18 8:36:00 CDTNotes: Max npwmqyaddagdo=3717 mg/day (4 gm/day). (Same as: Tylenol) Inactive 10/15/2018 [facility] multivitamin with minerals 1 tab, Route: PO, Drug Form: TAB, Dosing Weight 90.364, kg, Daily, Start date: 10/14/18 10:30:00 CDT, Duration: 30 day, Stop date: 11/13/18 9:00:00 CDTNotes: (Same as:Thera-M, Theragran-M) WASTE: F/P - Black; E - Nervogrid Trash Bin Give with food. No Longer Active 10/14/2018 [facility] Lyrica 150 mg, 2 cap, Route: PO, Drug form: CAP, Q8H, Dosing Weight 90.364, kg, Start date: 10/11/18 16:00:00 CDT, Duration: 30 day, Stop date: 11/10/18 8:00:00 CDTNotes: (Same as: Lyrica) No Longer Active 10/11/2018 [facility] Oxycodone Hydrochloride 5 MG Oral Tablet 10 mg, 2 tab, Route: PO, Drug form: TAB, Q4H, Dosing Weight 90.364, kg, PRN Pain Score 6-10, Start date: 10/11/18 10:06:00 CDT, Duration: 30 day, Stop date: 11/10/18 10:05:00 CDTNotes: (Same as: Roxicodone) No Longer Active 10/11/2018 [facility] Zofran 4 mg, 2 mL, Route: IVP, Drug form: INJ, Q6H, Dosing Weight 90.364, kg, PRN Nausea, Start date: 10/11/18 8:28:00 CDT, Duration: 30 day, Stop date: 11/10/18 8:27:00 CDTNotes: (Same as: Zofran) MEDICATION WASTE Product Size: 4 mg Product Wasted: ___ mg No Longer Active 10/11/2018 [facility] NS (Bolus) IV 500 mL, 500 ml/hr, Infuse Over: 1 hr, Route: IV, 500, Drug form: INJ, ONCE, Priority: STAT, Dosing Weight 90.364 kg, Start date: 10/10/18 10:28:00 CDT, Stop date: 10/10/18 10:28:00 CDT Inactive 10/10/2018 [facility] Enoxaparin 40 mg, 0.4 mL, Route: SUB-Q, Drug form: INJ, Daily, Dosing Weight 90.364, kg, Start date: 10/10/18 9:00:00 CDT, Duration: 30 day, Stop date: 11/08/18 9:00:00 CDTNotes: (Same as: Lovenox) No Longer Active 10/10/2018 [facility] Carbamazepine 200 mg, 1 tab, Route: PO, Drug form: TAB, BID, Dosing Weight 90.364, kg, Start date: 10/10/18 8:00:00 CDT, Duration: 30 day, Stop date: 11/08/18 12:00:00 CDTNotes: With food. (Same As: Tegretol) No Longer Active 10/10/2018 [facility] Calcium Chloride 0.0014 MEQ/ML / Potassium Chloride 0.004 MEQ/ML / Sodium Chloride 0.103 MEQ/ML / Sodium Lactate 0.028 MEQ/ML Injectable Solution 500 mL, 500 ml/hr, Infuse Over: 1 hr, Route: IV, 500, Drug form: INJ, ONCE, Priority: STAT, Dosing Weight 90.364 kg, Start date: 10/09/18 23:33:00 CDT, Stop date: 10/09/18 23:33:00 CDT No Longer Active 10/10/2018 [facility] zolpidem 5 mg, 1 tab, Route: PO, Drug form: TAB, Bedtime, Start date: 10/09/18 21:00:00 CDT, Duration: 30 day, Stop date: 11/07/18 21:00:00 CDTNotes: (Same As: Ambien) No Longer Active 10/10/2018 [facility] Lunesta 3 mg, Route: PO, Bedtime, Dosing Weight 90.364, kg, Start date: 10/09/18 21:00:00 CDT, Duration: 30 day, Stop date: 11/07/18 21:00:00 CDT Inactive 10/10/2018 [facility] Lyrica 75 mg, 1 cap, Route: PO, Drug form: CAP, BID, Dosing Weight 90.364, kg, Start date: 10/09/18 21:00:00 CDT, Duration: 30 day, Stop date: 11/08/18 9:00:00 CDTNotes: (Same as: Lyrica) No Longer Active 10/10/2018 [facility] Tegretol 400 mg, 2 tab, Route: PO, Drug form: TAB, Bedtime, Start date: 10/09/18 21:00:00 CDT, Duration: 30 day, Stop date: 11/07/18 21:00:00 CDTNotes: With food. (Same As: Tegretol) No Longer Active 10/10/2018 [facility] Calcium Chloride 0.0014 MEQ/ML / Potassium Chloride 0.004 MEQ/ML / Sodium Chloride 0.103 MEQ/ML / Sodium Lactate 0.028 MEQ/ML Injectable Solution 500 mL, 500 ml/hr, Infuse Over: 1 hr, Route: IV, 500, Drug form: INJ, PRN, Priority: STAT, Dosing Weight 90.364 kg, Start date: 10/09/18 20:29:00 CDT, Duration: 1 doses or times, Stop date: Limited # of times, PRN Low Blood Pressure Inactive 10/10/2018 [facility] Cefazolin 1 gm, Route: IV, Q8H, Dosing Weight 90.364, kg, Start date: 10/09/18 17:00:00 CDT, Duration: 3 doses or times, Stop date: 10/10/18 9:00:00 CDT, ABX Indication: Surgical ProphylaxisNotes: (Same As: Ancef , Kefzol) MEDICATION WASTE Product Size: 1000 mg Product Wasted: ___ mg No Longer Active 10/09/2018 [facility] RN-Inform Pharmacy when [facility] discontinued to verify [place] RN-Inform Pharmacy when [facility] [facility] [facility] discontinued to verify [place], Attn:RN, Drug form: MISC, Route: MISC, QSHIFT, 10/09/18 16:00:00 CDT, Duration: 30 day, Stop date: 11/08/18 8:00:00 CDT Inactive 10/09/2018 [facility] Zofran 4 mg, 2 mL, Route: IV, Drug form: INJ, Q6H, Dosing Weight 90.364, kg, Start date: 10/09/18 15:00:00 CDT, Duration: 1 day, Stop date: 10/10/18 9:00:00 CDTNotes: (Same as: Zofran) MEDICATION WASTE Product Size: 4 mg Product Wasted: ___ mg No Longer Active 10/09/2018 [facility] pregabalin 75 MG Oral Capsule [Lyrica] 75 mg=1 cap, PO, BID, 0 Refill(s) Active 10/09/2018 [facility] Phenergan 6.25 mg, Route: IVPB, ONCE, Dosing Weight 90.364, kg, Start date: 10/09/18 12:20:00 CDT, Stop date: 10/09/18 12:20:00 CDT Inactive 10/09/2018 [facility] Oxycodone 10 mg, Route: PO, Drug form: TAB, Q4H, Dosing Weight 90.364, kg, PRN Pain Score 7-10, Start date: 10/09/18 11:15:00 CDT, Duration: 30 day, Stop date: 11/08/18 11:14:00 CDT Inactive 10/09/2018 [facility] Hydromorphone 0.5 mg, Route: IVP, Q5Min, Dosing Weight 90.364, kg, PRN Pain Score 7-10, Start date: 10/09/18 11:15:00 CDT, Duration: 4 doses or times, Stop date: Limited # of times Inactive 10/09/2018 [facility] Naloxone 0.4 mg, Route: IVP, Q2MIN, Dosing Weight 90.364, kg, PRN Narcotic Reversal, Start date: 10/09/18 11:15:00 CDT, Duration: 8 doses or times, Stop date: Limited # of times Inactive 10/09/2018 [facility] Diphenhydramine 12.5 mg, Route: IVP, Drug form: INJ, Q6H, Dosing Weight 90.364, kg, PRN Itching, Start date: 10/09/18 11:15:00 CDT, Duration: 30 day, Stop date: 11/08/18 11:14:00 CDT Inactive 10/09/2018 [facility] Fentanyl 50 microgram, Route: IVP, Q5Min, Dosing Weight 90.364, kg, PRN Pain Score 7-10, Priority: Routine, Start date: 10/09/18 11:15:00 CDT, Duration: 2 doses or times, Stop date: Limited # of times Inactive 10/09/2018 [facility] Flumazenil 0.2 mg, Route: IVP, PRN, Dosing Weight 90.364, kg, PRN Benzodiazepine Reversal, Initial dose, Start date: 10/09/18 11:15:00 CDT, Duration: 30 day, Stop date: 11/08/18 11:14:00 CDT Inactive 10/09/2018 [facility] Ondansetron 4 mg, Route: IVP, ONCE, Dosing Weight 90.364, kg, PRN Nausea & Vomiting, Start date: 10/09/18 11:15:00 CDT Inactive 10/09/2018 [facility] Meperidine 12.5 mg, Route: IVP, Q30Min, Dosing Weight 90.364, kg, PRN Other -See Comment, For shivering, Start date: 10/09/18 11:15:00 CDT, Duration: 2 doses or times, Stop date: Limited # of times Inactive 10/09/2018 [facility] Acetaminophen 1,000 mg, Route: PO, Drug form: TAB, ONCE, Dosing Weight 90.364, kg, PRN Pain Score 1-3, Start date: 10/09/18 11:15:00 CDT Inactive 10/09/2018 [facility] Labetalol 10 mg, Route: IVP, Q5Min, Dosing Weight 90.364, kg, PRN Elevated BP, Start date: 10/09/18 11:15:00 CDT, Duration: 5 doses or times, Stop date: Limited # of times Inactive 10/09/2018 [facility] Hydralazine 10 mg, Route: IVP, Q20Min, Dosing Weight 90.364, kg, PRN Elevated BP, Start date: 10/09/18 11:15:00 CDT, Duration: 2 doses or times, Stop date: Limited # of times Inactive 10/09/2018 [facility] glycopyrrolate (ANES) Route: IV, Drug form: INJ, ONCE, Stop date: 10/09/18 11:13:00 CDT Inactive 10/09/2018 [facility] neostigmine (ANES) Route: IV, Drug form: INJ, ONCE, Stop date: 10/09/18 11:13:00 CDT Inactive 10/09/2018 [facility] Hydromorphone 15 mg, 30 mL, Route: IV, [employer] Dose: 0.2 mg, [employer] Lockout: 8 minutes, Continuous Basal Rate: 0 mg, 4 Hour Limit (In MG): 6, Drug Form: INJ, Continuous, Start date: 10/09/18 11:07:00 CDT, Duration: 30 day, Stop date: 11/08/18 11:06:00 CDTNotes: (Same as: Dilaudid) conc=0.5 mg/ml Hydromorphone [employer] Dose: ;Delay: ;Basal: Inactive 10/09/2018 [facility] Naloxone 0.04 mg, 0.1 mL, Route: IVP, Drug form: INJ, Q2MIN, Dosing Weight 90.364, kg, PRN Narcotic Reversal, Start date: 10/09/18 11:07:00 CDT, Duration: 30 day, Stop date: 11/08/18 11:06:00 CDTNotes: Same as Narcan No Longer Active 10/09/2018 [facility] Acetaminophen 325 MG / Hydrocodone Bitartrate 7.5 MG Oral Tablet [[place]ana 7.5/325] 1 tab, Route: PO, Drug Form: TAB, Dosing Weight 90.364, kg, Q4H, PRN Pain Score 4-6, Start date: 10/09/18 11:07:00 CDT, Duration: 30 day, Stop date: 11/08/18 11:06:00 CDT Inactive 10/09/2018 [facility] Tylenol 650 mg, 2 tab, Route: PO, Drug form: TAB, Q6H, Dosing Weight 90.364, kg, PRN For Temp > 100.4 F, Start date: 10/09/18 11:07:00 CDT, Duration: 30 day, Stop date: 11/08/18 11:06:00 CDTNotes: Do not exceed 4 gm/day. (Same as: Tylenol) No Longer Active 10/09/2018 [facility] Valium 5 mg, 1 mL, Route: IV, Drug form: INJ, Q6H, Dosing Weight 90.364, kg, PRN Spasm, Start date: 10/09/18 11:07:00 CDT, Duration: 30 day, Stop date: 11/08/18 11:06:00 CDTNotes: (Same as: Valium) No Longer Active 10/09/2018 [facility] Lactated Ringers IV 1,000 mL 1,000 mL, Rate: 75 ml/hr, Infuse over: 13.3 hr, Route: IV, Dosing Weight 90.364 kg, Total Volume: 1,000, Start date: 10/09/18 11:07:00 CDT, Duration: 30 day, Stop date: 11/08/18 11:06:00 CDT, 2.08, m2 No Longer Active 10/09/2018 [facility] tranexamic acid (ANES) Route: IV, Drug form: INJ, ONCE, Stop date: 10/09/18 10:26:00 CDT Inactive 10/09/2018 [facility] lidocaine (ANES) Route: IV, Drug form: INJ, ONCE, Stop date: 10/09/18 10:21:00 CDT Inactive 10/09/2018 [facility] fentaNYL (ANES) Route: IV, Drug form: INJ, ONCE, Stop date: 10/09/18 10:21:00 CDT Inactive 10/09/2018 [facility] rocuronium (ANES) Route: IV, Drug form: INJ, ONCE, Stop date: 10/09/18 10:21:00 CDT Inactive 10/09/2018 [facility] propofol (ANES) Route: IV, Drug form: INJ, ONCE, Stop date: 10/09/18 10:21:00 CDT Inactive 10/09/2018 [facility] ceFAZolin (ANES) Route: IV, Drug form: INJ, ONCE, Stop date: 10/09/18 10:21:00 CDT Inactive 10/09/2018 [facility] ondansetron (ANES) Route: IV, Drug form: INJ, ONCE, Stop date: 10/09/18 10:21:00 CDT Inactive 10/09/2018 [facility] acetaminophen (ANES) Route: IV, Drug form: INJ, ONCE, Stop date: 10/09/18 10:21:00 CDT Inactive 10/09/2018 [facility] famotidine (ANES) Route: IV, Drug form: INJ, ONCE, Stop date: 10/09/18 10:21:00 CDT Inactive 10/09/2018 [facility] midazolam (ANES) Route: IV, Drug form: SOLN, ONCE, Stop date: 10/09/18 10:16:00 CDT Inactive 10/09/2018 [facility] vancomycin (ANES) 1000 mg Route: IV, Drug form: INJ, Start date: 10/09/18 9:24:00 CDT, Stop date: 10/09/18 10:24:00 CDT Inactive 10/09/2018 [facility] Lactated Ringers Injection IV (ANES) 1000 mL Route: IV, Total Volume: 1,000, Start date: 10/09/18 9:11:00 CDT, Stop date: 10/09/18 10:11:00 CDT Inactive 10/09/2018 [facility] Calcium Chloride 0.0014 MEQ/ML / Potassium Chloride 0.004 MEQ/ML / Sodium Chloride 0.103 MEQ/ML / Sodium Lactate 0.028 MEQ/ML Injectable Solution 1,000 mL, Rate: 25 ml/hr, Infuse over: 40 hr, Route: IV, Dosing Weight 90.364 kg, Total Volume: 1,000, Start date: 10/09/18 8:10:00 CDT, Duration: 30 day, Stop date: 11/08/18 8:09:00 CDT, 2.08, m2 Inactive 10/09/2018 [facility] gabapentin 300 mg, Route: PO, ONCALL, Dosing Weight 90.364, kg, Start date: 10/09/18 7:00:00 CDT, Duration: 30 day, Stop date: 11/08/18 6:59:00 CDT Inactive 10/09/2018 [facility] ropivacaine 100 mL, Route: InFILtration(local), Drug Form: INJ, Dosing Weight 90.364, kg, ONCALL, Start date: 10/09/18 7:00:00 CDT, Duration: 30 day, Stop date: 11/08/18 6:59:00 CDT Inactive 10/09/2018 [facility] celecoxib 400 mg, Route: PO, ONCALL, Dosing Weight 90.364, kg, (for CrCl > 90 mL/min), Start date: 10/09/18 7:00:00 CDT, Duration: 30 day, Stop date: 11/08/18 6:59:00 CDT Inactive 10/09/2018 [facility] Acetaminophen 325 MG / Hydrocodone Bitartrate 10 MG Oral Tablet [[place] 10/325] 2 tab, Route: PO, Drug Form: TAB, Dosing Weight 90.364, kg, Q4H, PRN Pain Score 6-10, Start date: 10/09/18 6:33:00 CDT, Duration: 30 day, Stop date: 11/08/18 6:32:00 CDTNotes: Do not exceed 4gm/day of acetaminophen. (Same as: [place] 325/10) No Longer Active 10/09/2018 [facility] Valium 5 mg, Route: IV, Q6H, Dosing Weight 90.364, kg, PRN Spasm, Start date: 10/09/18 6:23:00 CDT, Duration: 30 day, Stop date: 11/08/18 6:22:00 CDT Inactive 10/09/2018 [facility] ropivacaine 100 mL, Route: InFILtration(local), Drug Form: INJ, Dosing Weight 90.364, kg, ONCALL, Start date: 10/09/18 5:00:00 CDT, Duration: 30 day, Stop date: 11/08/18 4:59:00 CDTNotes: NOT FOR IV use Ea ch mL contains: Ropivacaine 2.46 mg, Epinephrine 0.005 mg, Clonidine 0.0008 mg and Ketorolac 0.3 mg in Sodium Chloride No Longer Active 10/09/2018 [facility] 0.4 ML Enoxaparin sodium 100 MG/ML Prefilled Syringe [Lovenox] 40 mg, SUB-Q, Daily, # 14 inj, 0 Refill(s) Active 10/08/2018 [facility] Cephalexin 500 MG Oral Capsule [Keflex] 500 mg=1 cap, PO, QID, X 10 day, # 40 cap, 0 Refill(s) Active 10/08/2018 [facility] Acetaminophen 325 MG / Hydrocodone Bitartrate 10 MG Oral Tablet [[place] 10/325] 1 tab, PO, TID, PRN Pain, # 60 tab, 0 Refill(s) Active 09/28/2018 [facility] carBAMazepine 200 mg oral tablet PO, 0 Refill(s) Active 09/28/2018 [facility] pregabalin 150 MG Oral Capsule [Lyrica] 150 mg=1 cap, PO, TID, # 90 cap, 0 Refill(s) No Longer Active 09/28/2018 [facility] Allergies, Adverse Reactions, Alerts Substance Category Reaction Severity Reaction type Status Date Reported Comments Source Adhesive Tape Assertion Drug allergy Active [facility] [place] Bandaids Assertion Drug allergy Active [facility] [place] Immunizations No Data Provided for This Section Results Order Name Results Value Reference Range Date Interpretation Comments Source HEMATOLOGY Hgb 10.1 12.0 - 16.0 10/15/2018 [facility] MCH 33.4 27.0 - 31.0 10/11/2018 [facility] MCHC 34.4 32.0 - 36.0 10/11/2018 [facility] MCV 97.2 80.0 - 98.0 10/11/2018 [facility] RDW 12.5 11.5 - 14.5 10/11/2018 [facility] Platelet 184 133 - 450 10/11/2018 [facility] MPV 8.2 7.4 - 10.4 10/11/2018 [facility] Hgb 9.9 12.0 - 16.0 10/11/2018 [facility] Hct 28.8 36.0 - 48.0 10/11/2018 [facility] RBC 2.96 4.20 - 5.40 10/11/2018 [facility] WBC 7.5 3.7 - 10.4 10/11/2018 [facility] Monocytes 11.1 2.0 - 12.0 10/11/2018 [facility] Eosinophils 4.0 0.0 - 4.0 10/11/2018 [facility] Segs 61.9 45.0 - 75.0 10/11/2018 [facility] Lymphocytes 22.7 20.0 - 40.0 10/11/2018 [facility] Eosinophils # 0.3 0.0 - 0.5 10/11/2018 [facility] Monocytes # 0.8 0.0 - 0.8 10/11/2018 [facility] HEMATOLOGY Basophils 0.3 0.0 - 1.0 10/11/2018 [facility] HEMATOLOGY Neutrophils # 4.6 1.5 - 8.1 10/11/2018 [facility] Lymphocytes # 1.7 1.0 - 5.5 10/11/2018 [facility] HEMATOLOGY Hct 31.5 36.0 - 48.0 10/10/2018 [facility] HEMATOLOGY Hgb 10.6 12.0 - 16.0 10/10/2018 [facility] ELECTROLYTES CO2 28 24 - 32 10/10/2018 [facility] ELECTROLYTES Calcium Lvl 7.6 8.5 - 10.5 10/10/2018 [facility] ELECTROLYTES Chloride Lvl 108 95 - 109 10/10/2018 [facility] ELECTROLYTES AGAP 9.3 10.0 - 20.0 10/10/2018 [facility] eGFR 89 10/10/2018 Result Comment: The eGFR is calculated using the CKD-EPI formula. In most young, healthy individuals the eGFR will be >90 mL/min/1.73m2. The eGFR declines with age. An eGFR of 60-89 may be normal in some populations, particularly the elderly, for whom the CKD-EPI formula has not been extensively validated. Use of the eGFR is not recommended in the following populations:

Individuals with unstable creatinine concentrations, including patients and those with serious co-morbid conditions.

Patients with extremes in muscle mass or diet.

The data above are obtained from the National Kidney Disease Education Program (NKDEP) which additionally recommends that when the eGFR is used in patients with extremes of body mass index for purposes of drug dosing, the eGFR should be multiplied by the estimated BMI. [facility] ELECTROLYTES BUN 13 7 - 22 10/10/2018 [facility] ELECTROLYTES Glucose Lvl 123 70 - 99 10/10/2018 [facility] ELECTROLYTES Sodium Lvl 141 135 - 145 10/10/2018 [facility] ELECTROLYTES Potassium Lvl 4.3 3.5 - 5.1 10/10/2018 [facility] ELECTROLYTES Creatinine Lvl 0.72 0.50 - 1.40 10/10/2018 [facility] Monocytes # 0.8 0.0 - 0.8 10/10/2018 [facility] Lymphocytes # 2.1 1.0 - 5.5 10/10/2018 [facility] Neutrophils # 6.9 1.5 - 8.1 10/10/2018 [facility] Lymphocytes 21.4 20.0 - 40.0 10/10/2018 [facility] Monocytes 8.1 2.0 - 12.0 10/10/2018 [facility] Segs 70.2 45.0 - 75.0 10/10/2018 [facility] HEMATOLOGY Eosinophils 0.1 0.0 - 4.0 10/10/2018 [facility] Basophils 0.2 0.0 - 1.0 10/10/2018 [facility] Platelet 206 133 - 450 10/10/2018 [facility] MPV 7.4 7.4 - 10.4 10/10/2018 [facility] MCHC 33.6 32.0 - 36.0 10/10/2018 [facility] RDW 12.7 11.5 - 14.5 10/10/2018 [facility] MCH 33.1 27.0 - 31.0 10/10/2018 [facility] Hct 31.0 36.0 - 48.0 10/10/2018 [facility] MCV 98.5 80.0 - 98.0 10/10/2018 [facility] WBC 9.8 3.7 - 10.4 10/10/2018 [facility] RBC 3.15 4.20 - 5.40 10/10/2018 [facility] ELECTROLYTES AGAP 7.1 10.0 - 20.0 10/09/2018 [facility] ELECTROLYTES eGFR 96 10/09/2018 Result Comment: The eGFR is calculated using the CKD-EPI formula. In most young, healthy individuals the eGFR will be >90 mL/min/1.73m2. The eGFR declines with age. An eGFR of 60-89 may be normal in some populations, particularly the elderly, for whom the CKD-EPI formula has not been extensively validated. Use of the eGFR is not recommended in the following populations:

Individuals with unstable creatinine concentrations, including patients and those with serious co-morbid conditions.

Patients with extremes in muscle mass or diet.

The data above are obtained from the National Kidney Disease Education Program (NKDEP) which additionally recommends that when the eGFR is used in patients with extremes of body mass index for purposes of drug dosing, the eGFR should be multiplied by the estimated BMI. [facility] ELECTROLYTES CO2 31 24 - 32 10/09/2018 [facility] ELECTROLYTES Calcium Lvl 8.2 8.5 - 10.5 10/09/2018 [facility] ELECTROLYTES Chloride Lvl 109 95 - 109 10/09/2018 [facility] ELECTROLYTES Potassium Lvl 4.1 3.5 - 5.1 10/09/2018 [facility] ELECTROLYTES Sodium Lvl 143 135 - 145 10/09/2018 [facility] ELECTROLYTES Creatinine Lvl 0.62 0.50 - 1.40 10/09/2018 [facility] ELECTROLYTES BUN 15 7 - 22 10/09/2018 [facility] ELECTROLYTES Glucose Lvl 102 70 - 99 10/09/2018 [facility] HEMATOLOGY INR 1.08 0.85 - 1.17 10/09/2018 [facility] HEMATOLOGY PT 13.8 12.0 - 14.7 10/09/2018 [facility] HEMATOLOGY RDW 12.9 11.5 - 14.5 10/09/2018 [facility] HEMATOLOGY Platelet 226 133 - 450 10/09/2018 [facility] HEMATOLOGY MPV 7.7 7.4 - 10.4 10/09/2018 [facility] HEMATOLOGY RBC 3.40 4.20 - 5.40 10/09/2018 [facility] HEMATOLOGY WBC 10.8 3.7 - 10.4 10/09/2018 [facility] HEMATOLOGY MCHC 34.6 32.0 - 36.0 10/09/2018 [facility] HEMATOLOGY MCV 96.8 80.0 - 98.0 10/09/2018 [facility] HEMATOLOGY MCH 33.5 27.0 - 31.0 10/09/2018 [facility] HEMATOLOGY PTT 34.3 22.9 - 35.8 10/09/2018 [facility] HEMATOLOGY Monocytes # 0.6 0.0 - 0.8 10/09/2018 [facility] HEMATOLOGY Segs 86.6 45.0 - 75.0 10/09/2018 [facility] HEMATOLOGY Eosinophils 0.1 0.0 - 4.0 10/09/2018 [facility] HEMATOLOGY Basophils 0.2 0.0 - 1.0 10/09/2018 [facility] HEMATOLOGY Monocytes 5.3 2.0 - 12.0 10/09/2018 [facility] HEMATOLOGY Lymphocytes # 0.8 1.0 - 5.5 10/09/2018 [facility] HEMATOLOGY Neutrophils # 9.3 1.5 - 8.1 10/09/2018 [facility] HEMATOLOGY Lymphocytes 7.8 20.0 - 40.0 10/09/2018 [facility] SPECIAL CHEMISTRY Hgb A1C 5.3 <=5.6 % 10/09/2018 [facility] BLOOD BANK RESULTS ABO/Rh O POS 10/09/2018 [facility] BLOOD BANK RESULTS Antibody Scrn Negative (10/09/18 7:51 AM) 10/09/2018 [facility] HEMATOLOGY Eosinophils # 0.2 0.0 - 0.5 09/28/2018 [facility] BLOOD BANK RESULTS ABO/Rh O POS 09/28/2018 [facility] BLOOD BANK RESULTS Antibody Scrn Negative (09/28/18 3:47 PM) 09/28/2018 [facility] ELECTROLYTES AGAP 9.9 10.0 - 20.0 09/28/2018 [facility] ELECTROLYTES eGFR 93 09/28/2018 Result Comment: The eGFR is calculated using the CKD-EPI formula. In most young, healthy individuals the eGFR will be >90 mL/min/1.73m2. The eGFR declines with age. An eGFR of 60-89 may be normal in some populations, particularly the elderly, for whom the CKD-EPI formula has not been extensively validated. Use of the eGFR is not recommended in the following populations:

Individuals with unstable creatinine concentrations, including patients and those with serious co-morbid conditions.

Patients with extremes in muscle mass or diet.

The data above are obtained from the National Kidney Disease Education Program (NKDEP) which additionally recommends that when the eGFR is used in patients with extremes of body mass index for purposes of drug dosing, the eGFR should be multiplied by the estimated BMI. [facility] ELECTROLYTES Glucose Lvl 85 70 - 99 09/28/2018 [facility] ELECTROLYTES Sodium Lvl 145 135 - 145 09/28/2018 [facility] ELECTROLYTES Creatinine Lvl 0.69 0.50 - 1.40 09/28/2018 [facility] ELECTROLYTES BUN 12 7 - 22 09/28/2018 [facility] ELECTROLYTES Potassium Lvl 4.9 3.5 - 5.1 09/28/2018 [facility] ELECTROLYTES CO2 31 24 - 32 09/28/2018 [facility] ELECTROLYTES Chloride Lvl 109 95 - 109 09/28/2018 [facility] ELECTROLYTES Calcium Lvl 8.9 8.5 - 10.5 09/28/2018 [facility] HEMATOLOGY PTT 31.9 22.9 - 35.8 09/28/2018 [facility] HEMATOLOGY INR 0.96 0.85 - 1.17 09/28/2018 [facility] HEMATOLOGY PT 12.6 12.0 - 14.7 09/28/2018 [facility] BLOOD BANK RESULTS RBC product Product available (09/28/18 3:36 PM) 09/28/2018 [facility] Pathology Reports No Data Provided for This Section Diagnostic Reports Report Value Date Source Hip 1 view DX Patient Name: VALENCIA CASPER : 1955; Age: 63 years y/o Female MR: [id number] Right hip, 1 view, portable, postoperative HISTORY: Postoperative study, following right hip arthroplasty. TECHNIQUE: A single portable postoperative frontal view of the right hip was obtained. IMPRESSION: The right total hip prosthesis is in good position. There is no evidence of unexpected fracture or other complication. There is postoperative soft tissue gas. There are lateral surgical skin moody. SL: [id number] 10/09/2018 [facility] Hip 1 view DX Patient Name: VALENCIA CASPER : 1955; Age: 63 years y/o Female MR: [id number] * RIGHT HIP, intraoperative, History: Intraoperative radiographs obtained during right hip arthroplasty Technique: Multiple intraoperative digital C-arm images of the right hip were obtained utilizing during right hip arthroplasty. Frontal neutral, external rotation, internal rotation, abduction, abduction, extension, and flexion views were obtained. It is indicated the fluoroscopy time was 32.4 seconds. Flouroscopy dose: 8.43 mGy. IMPRESSION: The right total hip prosthesis appears to be in good position. There is no evidence of unexpected fracture. No instability is seen with the various positional maneuvers. SL: [id number] 10/09/2018 [facility] Consultation Notes No Data Provided for This Section Discharge Summaries No Data Provided for This Section History and Physicals No Data Provided for This Section Vital Signs Vital Sign Value Date Comments Source Temperature Oral (F) 98.1 F 10/15/2018 [facility] Heart Rate 70 10/15/2018 [facility] Respitory Rate 16 10/15/2018 [facility] Systolic (mm Hg) 104 10/15/2018 [facility] Diastolic (mm Hg) 70 10/15/2018 [facility] Heart Rate 69 10/15/2018 [facility] Temperature Oral (F) 97.6 F 10/15/2018 [facility] Systolic (mm Hg) 105 10/15/2018 [facility] Diastolic (mm Hg) 71 10/15/2018 [facility] Respitory Rate 16 10/15/2018 [facility] Systolic (mm Hg) 114 10/15/2018 [facility] Diastolic (mm Hg) 74 10/15/2018 [facility] Heart Rate 67 10/15/2018 [facility] Respitory Rate 18 10/15/2018 [facility] Temperature Oral (F) 97.9 F 10/15/2018 [facility] Height 167.64 cm 09/28/2018 [facility] BMI Calculated 32.15 09/28/2018 [facility] Weight 90.364 09/28/2018 [facility] Height 170.18 cm 10/10/2012 [facility] Weight 124.091 10/10/2012 [facility] Encounters Location Location Details Encounter Type Encounter Number Reason For Visit Attending Provider ADM Date DC Date Status Source [facility] MADDIE [id number] TRIGEMINAL NEURALGIA CLARI HANEY 05/23/2012 05/23/2012 Active [facility] MADDIE [id number] TRIGEMINAL NEURALGIA CLARI HANEY 10/10/2012 10/10/2012 Active [facility] [id number] [place] Cotto 10/09/2018 10/15/2018 [facility] [id number] [place] 10/31/2018 11/30/2018 [facility] [place] [facility] [id number] Van Cotto 12/03/2018 01/02/2019 [facility] [place] [facility] MADDIE [id number] TRIGEMINAL NEURALGIA CLARI Galdamez [facility] Procedures Procedure Code Date Perfomer Comments Source Cholecystectomy [id number] [facility] [place] Colonoscopy [id number] [facility] [place] Hip arthroplasty [id number] [facility] [place] Hysterectomy [id number] [facility] [place] Lumbar epidural injection [id number] [facility] [place] Revision of hip arthroplasty<sup>1</sup> [id number] 2 months after original arthroplasty [facility] [place] Sleeve resection of stomach [id number] [facility] [place] Cholecystectomy [id number] [facility] Colonoscopy [id number] [facility] Hip arthroplasty [id number] [facility] Hysterectomy [id number] [facility] Lumbar epidural injection [id number] [facility] Revision of hip arthroplasty<sup>1</sup> [id number] 2 months after original arthroplasty [facility] Sleeve resection of stomach [id number] [facility] Assessment and Plan Assessment and Plan Date Source Extracted from:Title: Cardiology Progress Note Author: Fredis Lewis MD Date: 4/1/19 Impression and Plan S/p R hip arthroplasty Hypotension Hx of obesity s/p gastric sleeve - Cont with judicious fluid resuscitation - BP has responded well to fluid - EKG reviewed, sinus rhythm - Echo reviewed, normal LV fnx - Hb dropped slightly, but is stable around 9-10 Thank you. Cardiology will follow. 10/15/2018 [facility] Plan of Care No Data Provided for This Section Social History Social History Date Source Social History TypeResponse Substance Abuse Use: None. Alcohol Never Smoking Status Never smoker; Previous treatment: None; Exposure to Tobacco Smoke None; Cigarette Smoking Last 365 Days No; Reg Smoking Cessation Counseling No entered on: 10/09/18 10/09/2018 [facility] [place] Social History TypeResponse Substance Abuse Use: None. Alcohol Never Smoking Status Never smoker; Previous treatment: None; Exposure to Tobacco Smoke None; Cigarette Smoking Last 365 Days No; Reg Smoking Cessation Counseling No entered on: 10/09/18 10/09/2018 [facility] Family History No Data Provided for This Section Advance Directives No Data Provided for This Section Functional Status No Data Provided for This Section
--- OUTSIDE RECORDS SUMMARY | 2019-02-07 05:31 | XMS REPORT | Summary of Care ---
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 [employer] Name Role Phone Kraig Cuello PCP Encounter [facility] Alvarado_kristine(FIN) [id number] Date(s): 12/03/18 - 01/01/19 [facility] Discharge Disposition: Home or Self Care Attending Physician: Van Cotto Vital Signs No data available for this section Problem List Condition Effective Dates Status Health Status Informant Risk for Active falls(Confirmed) Backache1 05/09/12 Active SOBOE (shortness of Active breath on exertion)(Confirmed) Cervical Resolved cancer(Confirmed) Right facial Active numbness(Confirmed)2 DJD (degenerative Active joint disease)(Confirmed)3 Lumbar herniated Active disc(Confirmed) Trigeminal Active neuralgia4 1Data migrated from [employer] on 03/10/15. 2with shooting pains 3right hip 4Data migrated from [employer] on 03/10/15. Allergies, Adverse Reactions, Alerts Substance Reaction Severity Status NKDA Active Adhesive Tape Active Bandaids Active Medications No data available for this section Results No data available for this section Immunizations No data available for this section Procedures Procedure Date Related Diagnosis Body Site Status Cholecystectomy Completed Colonoscopy Completed Hip arthroplasty Completed Hysterectomy Completed Lumbar epidural injection Completed Revision of hip arthroplasty1 Completed Sleeve resection of stomach Completed 12 months after original arthroplasty Social History Social History Type Response Substance Abuse Use: None. Alcohol Never Smoking Status Never smoker; Previous treatment: None; Exposure to Tobacco Smoke None; Cigarette Smoking Last 365 Days No; Reg Smoking Cessation Counseling No entered on: 10/09/18 Assessment and Plan No data available for this section
--- OUTSIDE RECORDS SUMMARY | 2019-02-07 05:31 | XMS REPORT | Summary of Care ---
Author Author [facility] Address Unknown Phone Unavailable Encounter CHEYENNE Iqbal(FIN) [id number] Date(s): 10/31/18 - 11/29/18 [facility] Discharge Disposition: Home or Self Care [...]
--- OUTSIDE RECORDS SUMMARY | 2019-02-07 05:31 | XMS REPORT | Summary of Care ---
Author Author [facility] Organization [facility] Address Unknown Phone Unavailable Encounter CHEYENNE Iqbal(BARBARA) [id number] Date(s): 10/09/18 - 10/15/18 [facility] [id number] [place] [address]- Encounter Diagnosis Encounter for general adult medical examination without abnormal findings (Final) - Alcohol abuse, uncomplicated (Final) - Discharge Disposition: Home or Self Care Attending Physician: Van Cotto Admitting Physician: Van Cotto Referring Physician: Van Cotto Vital Signs 1 2 3 Most recent to oldest [Reference Range]: 167.64 cm (09/28/18 3:32 PM) Height 98.1 DegF (10/15/18 3:41 PM) 97.6 DegF (10/15/18 11:59 AM) 97.9 DegF (10/15/18 8:13 AM) Temperature Oral [96.4-99.1 DegF] 104/70 mmHg (10/15/18 3:41 PM) 105/71 mmHg (10/15/18 11:59 AM) 114/74 mmHg (10/15/18 8:13 AM) Blood Pressure [90-140/60-90 mmHg] 16 BRMIN (10/15/18 3:41 PM) 16 BRMIN (10/15/18 11:59 AM) 18 BRMIN (10/15/18 8:13 AM) Respiratory Rate [14-20 BRMIN] 70 bpm (10/15/18 3:41 PM) 69 bpm (10/15/18 11:59 AM) 67 bpm (10/15/18 8:13 AM) Peripheral Pulse Rate [60-100 bpm] 90.364 kg (09/28/18 3:32 PM) Weight 32.15 m2 (09/28/18 3:32 PM) Body Mass Index Problem List Condition Effective Dates Status Health Status Informant Risk for Active falls(Confirmed) Backache1 05/09/12 Active SOBOE (shortness of Active breath on exertion)(Confirmed) Cervical Resolved cancer(Confirmed) Right facial Active numbness(Confirmed)2 DJD (degenerative Active joint disease)(Confirmed)3 Lumbar herniated Active disc(Confirmed) Trigeminal Active neuralgia4 1Data migrated from [employer] on 03/10/15. 2with shooting pains 3right hip 4Data migrated from [employer] on 03/10/15. Allergies, Adverse Reactions, Alerts Substance Reaction Severity Status NKDA Active Adhesive Tape Active Bandaids Active Medications RN-Inform Pharmacy when [employer] discontinued to verify [place] RN-Inform Pharmacy when [employer] discontinued to verify [place], Attn:RN, Drug form : MISC, Route: MISC, QSHIFT, 10/09/18 16:00:00 CDT, Duration: 30 day, Stop date: 11/08/18 8:00:00 CDT Start Date: 10/09/18 Stop Date: 10/09/18 Status: Deleted acetaminophen 325 mg, 1 tab, Route: PO, Drug form: TAB, Q4H, Dosing Weight 90.364, kg, PRN Bijal n 1-3/Temp > 100.4 F, Start date: 10/15/18 9:25:00 CDT, Duration: 30 day, Stop date: 11/14/18 9:24:00 CDT Notes: Do not exceed 4 gm/day. (Same as: Tylenol) Start Date: 10/15/18 Stop Date: 10/15/18 Status: Discontinued acetaminophen (ANES) Route: IV, Drug form: INJ, ONCE, Stop date: 10/09/18 10:21:00 CDT Start Date: 10/09/18 Stop Date: 10/09/18 Status: Completed ANES acetaminophen 1,000 mg, Route: PO, Drug form: TAB, ONCE, Dosing Weight 90.364, kg, PRN Pain Sc ore 1-3, Start date: 10/09/18 11:15:00 CDT Start Date: 10/09/18 Stop Date: 10/09/18 Status: Discontinued ANES diphenhydrAMINE 12.5 mg, Route: IVP, Drug form: INJ, Q6H, Dosing Weight 90.364, kg, PRN Itching, Start date: 10/09/18 11:15:00 CDT, Duration: 30 day, Stop date: 11/08/18 11:14: 00 CDT Start Date: 10/09/18 Stop Date: 10/09/18 Status: Discontinued ANES fentaNYL 50 microgram, Route: IVP, Q5Min, Dosing Weight 90.364, kg, PRN Pain Score 7-10, Priority: Routine, Start date: 10/09/18 11:15:00 CDT, Duration: 2 doses or times , Stop date: Limited # of times Start Date: 10/09/18 Stop Date: 10/09/18 Status: Discontinued ANES flumazenil 0.2 mg, Route: IVP, PRN, Dosing Weight 90.364, kg, PRN Benzodiazepine Reversal, Initial dose, Start date: 10/09/18 11:15:00 CDT, Duration: 30 day, Stop date: 11:14:00 CDT Start Date: 10/09/18 Stop Date: 10/09/18 Status: Discontinued ANES hydrALAZINE 10 mg, Route: IVP, Q20Min, Dosing Weight 90.364, kg, PRN Elevated BP, Start date : 10/09/18 11:15:00 CDT, Duration: 2 doses or times, Stop date: Limited # of michelle es Start Date: 10/09/18 Stop Date: 10/09/18 Status: Discontinued ANES HYDROmorphone 0.5 mg, Route: IVP, Q5Min, Dosing Weight 90.364, kg, PRN Pain Score 7-10, Start date: 10/09/18 11:15:00 CDT, Duration: 4 doses or times, Stop date: Limited # of times Start Date: 10/09/18 Stop Date: 10/09/18 Status: Completed ANES labetalol 10 mg, Route: IVP, Q5Min, Dosing Weight 90.364, kg, PRN Elevated BP, Start date: 10/09/18 11:15:00 CDT, Duration: 5 doses or times, Stop date: Limited # of times Start Date: 10/09/18 Stop Date: 10/09/18 Status: Discontinued ANES meperidine 12.5 mg, Route: IVP, Q30Min, Dosing Weight 90.364, kg, PRN Other -See Comment, F or shivering, Start date: 10/09/18 11:15:00 CDT, Duration: 2 doses or times, Sto p date: Limited # of times Start Date: 10/09/18 Stop Date: 10/09/18 Status: Discontinued ANES naloxone 0.4 mg, Route: IVP, Q2MIN, Dosing Weight 90.364, kg, PRN Narcotic Reversal, Star t date: 10/09/18 11:15:00 CDT, Duration: 8 doses or times, Stop date: Limited # of times Start Date: 10/09/18 Stop Date: 10/09/18 Status: Discontinued ANES ondansetron 4 mg, Route: IVP, ONCE, Dosing Weight 90.364, kg, PRN Nausea & Vomiting, Start date: 10/09/18 11:15:00 CDT Start Date: 10/09/18 Stop Date: 10/09/18 Status: Completed ANES oxyCODONE 10 mg, Route: PO, Drug form: TAB, Q4H, Dosing Weight 90.364, kg, PRN Pain Score 7-10, Start date: 10/09/18 11:15:00 CDT, Duration: 30 day, Stop date: 11/08/18 1 1:14:00 CDT Start Date: 10/09/18 Stop Date: 10/09/18 Status: Discontinued ANES oxyCODONE 5 mg, Route: PO, Drug form: TAB, Q4H, Dosing Weight 90.364, kg, PRN Pain Score 4 -6, Start date: 10/09/18 11:15:00 CDT, Duration: 30 day, Stop date: 11/08/18 11: 14:00 CDT Start Date: 10/09/18 Stop Date: 10/09/18 Status: Discontinued carBAMazepine 200 mg, 1 tab, Route: PO, Drug form: TAB, BID, Dosing Weight 90.364, kg, Start d ate: 10/10/18 8:00:00 CDT, Duration: 30 day, Stop date: 11/08/18 12:00:00 CDT Notes: With food. (Same As: Tegretol) Start Date: 10/10/18 Stop Date: 10/15/18 Status: Discontinued carBAMazepine 200 mg oral tablet PO, 0 Refill(s) Start Date: 09/28/18 Status: Ordered ceFAZolin (ANES) Route: IV, Drug form: INJ, ONCE, Stop date: 10/09/18 10:21:00 CDT Start Date: 10/09/18 Stop Date: 10/09/18 Status: Completed ceFAZolin (SCIP) + sterile water 10 mL 1 gm, Route: IV, Q8H, Dosing Weight 90.364, kg, Start date: 10/09/18 17:00:00 CD T, Duration: 3 doses or times, Stop date: 10/10/18 9:00:00 CDT, ABX Indication: Surgical Prophylaxis Notes: (Same As: Tyra Gotti) MEDICATION WASTE Product Size: 1000 mgP roduct Wasted: ___ mg Start Date: 10/09/18 Stop Date: 10/10/18 Status: Completed celecoxib 400 mg, Route: PO, ONCALL, Dosing Weight 90.364, kg, (for CrCl > 90 mL/min), Start date: 10/09/18 7:00:00 CDT, Duration: 30 day, Stop date: 11/08/18 6:59:00 CDT Start Date: 10/09/18 Stop Date: 10/09/18 Status: Completed enoxaparin 40 mg, 0.4 mL, Route: SUB-Q, Drug form: INJ, Daily, Dosing Weight 90.364, kg, St art date: 10/10/18 9:00:00 CDT, Duration: 30 day, Stop date: 11/08/18 9:00:00 CD T Notes: (Same as: Lovenox) Start Date: 10/10/18 Stop Date: 10/15/18 Status: Discontinued famotidine (ANES) Route: IV, Drug form: INJ, ONCE, Stop date: 10/09/18 10:21:00 CDT Start Date: 10/09/18 Stop Date: 10/09/18 Status: Completed fentaNYL (ANES) Route: IV, Drug form: INJ, ONCE, Stop date: 10/09/18 10:21:00 CDT Start Date: 10/09/18 Stop Date: 10/09/18 Status: Completed gabapentin 300 mg, Route: PO, ONCALL, Dosing Weight 90.364, kg, Start date: 10/09/18 7:00:0 0 CDT, Duration: 30 day, Stop date: 11/08/18 6:59:00 CDT Start Date: 10/09/18 Stop Date: 10/09/18 Status: Completed glycopyrrolate (ANES) Route: IV, Drug form: INJ, ONCE, Stop date: 10/09/18 11:13:00 CDT Start Date: 10/09/18 Stop Date: 10/09/18 Status: Completed HYDROmorphone 0.5mg/mL [employer] (15mg/30 mL) 15 mg 15 mg, 30 mL, Route: IV, [employer] Dose: 0.2 mg, [employer] Lockout: 8 minutes, Continuous Ba kaz Rate: 0 mg, 4 Hour Limit (In MG): 6, Drug Form: INJ, Continuous, Start date: 10/09/18 11:07:00 CDT, Duration: 30 day, Stop date: 11/08/18 11:06:00 CDT Notes: (Same as: Dilaudid) conc=0.5 mg/mlHydromorphone [employer] Dose: ;Delay: ;Basal: Start Date: 10/09/18 Stop Date: 10/09/18 Status: Discontinued Keflex 500 mg oral capsule 500 mg=1 cap, PO, QID, X 10 day, # 40 cap, 0 Refill(s) Start Date: 10/08/18 Stop Date: 10/18/18 Status: Ordered Lactated Ringers (Bolus) IV 500 mL, 500 ml/hr, Infuse Over: 1 hr, Route: IV, 500, Drug form: INJ, PRN, Prior ity: STAT, Dosing Weight 90.364 kg, Start date: 10/09/18 20:29:00 CDT, Duration: 1 doses or times, Stop date: Limited # of times, PRN Low Blood Pressure Start Date: 10/09/18 Stop Date: 10/09/18 Status: Completed Lactated Ringers (Bolus) IV 500 mL, 500 ml/hr, Infuse Over: 1 hr, Route: IV, 500, Drug form: INJ, ONCE, Prio rity: STAT, Dosing Weight 90.364 kg, Start date: 10/09/18 23:33:00 CDT, Stop ke e: 10/09/18 23:33:00 CDT Start Date: 10/09/18 Stop Date: 10/10/18 Status: Completed Lactated Ringers (Bolus) IV 500 mL, 500 ml/hr, Infuse Over: 1 hr, Route: IV, 500, Drug form: INJ, ONCE, Prio rity: STAT, Dosing Weight 90.364 kg, Start date: 10/09/18 20:29:00 CDT, Stop ke e: 10/09/18 20:29:00 CDT Start Date: 10/09/18 Stop Date: 10/09/18 Status: Completed Lactated Ringers Injection IV (ANES) 1000 mL Route: IV, Total Volume: 1,000, Start date: 10/09/18 9:11:00 CDT, Stop date: 10:11:00 CDT Start Date: 10/09/18 Stop Date: 10/09/18 Status: Completed Lactated Ringers Injection IV 1000 mL 1,000 mL, Rate: 25 ml/hr, Infuse over: 40 hr, Route: IV, Dosing Weight 90.364 kg , Total Volume: 1,000, Start date: 10/09/18 8:10:00 CDT, Duration: 30 day, Stop date: 11/08/18 8:09:00 CDT, 2.08, m2 Start Date: 10/09/18 Stop Date: 10/09/18 Status: Discontinued Lactated Ringers IV 1,000 mL 1,000 mL, Rate: 75 ml/hr, Infuse over: 13.3 hr, Route: IV, Dosing Weight 90.364 kg, Total Volume: 1,000, Start date: 10/09/18 11:07:00 CDT, Duration: 30 day, St op date: 11/08/18 11:06:00 CDT, 2.08, m2 Start Date: 10/09/18 Stop Date: 10/14/18 Status: Discontinued lidocaine (ANES) Route: IV, Drug form: INJ, ONCE, Stop date: 10/09/18 10:21:00 CDT Start Date: 10/09/18 Stop Date: 10/09/18 Status: Completed Lovenox 40 mg/0.4 mL subcutaneous solution 40 mg, SUB-Q, Daily, # 14 inj, 0 Refill(s) Start Date: 10/08/18 Stop Date: 11/08/18 Status: Ordered Lunesta 3 mg, Route: PO, Bedtime, Dosing Weight 90.364, kg, Start date: 10/09/18 21:00:0 0 CDT, Duration: 30 day, Stop date: 11/07/18 21:00:00 CDT Start Date: 10/09/18 Stop Date: 10/09/18 Status: Deleted Lunesta 3 mg, Route: PO, Bedtime, Dosing Weight 90.364, kg, Start date: 10/09/18 21:00:0 0 CDT, Duration: 30 day, Stop date: 11/07/18 21:00:00 CDT Start Date: 10/09/18 Stop Date: 10/09/18 Status: Deleted Lunesta 3 mg, Route: PO, Bedtime, Dosing Weight 90.364, kg, Start date: 10/09/18 21:00:0 0 CDT, Duration: 30 day, Stop date: 11/07/18 21:00:00 CDT Start Date: 10/09/18 Stop Date: 10/09/18 Status: Deleted Lyrica 150 mg, 2 cap, Route: PO, Drug form: CAP, Q8H, Dosing Weight 90.364, kg, Start d ate: 10/11/18 16:00:00 CDT, Duration: 30 day, Stop date: 11/10/18 8:00:00 CDT Notes: (Same as: Lyrica) Start Date: 10/11/18 Stop Date: 10/15/18 Status: Discontinued Lyrica 75 mg, 1 cap, Route: PO, Drug form: CAP, BID, Dosing Weight 90.364, kg, Start da te: 10/09/18 21:00:00 CDT, Duration: 30 day, Stop date: 11/08/18 9:00:00 CDT Notes: (Same as: Lyrica) Start Date: 10/09/18 Stop Date: 10/11/18 Status: Discontinued Lyrica 150 mg oral capsule 150 mg=1 cap, PO, TID, # 90 cap, 0 Refill(s) Start Date: 09/28/18 Stop Date: 10/09/18 Status: Discontinued Lyrica 75 mg oral capsule 75 mg=1 cap, PO, BID, 0 Refill(s) Start Date: 10/09/18 Status: Ordered midazolam (ANES) Route: IV, Drug form: SOLN, ONCE, Stop date: 10/09/18 10:16:00 CDT Start Date: 10/09/18 Stop Date: 10/09/18 Status: Completed multivitamin with minerals 1 tab, Route: PO, Drug Form: TAB, Dosing Weight 90.364, kg, Daily, Start date: 0 10/14/18 10:30:00 CDT, Duration: 30 day, Stop date: 11/13/18 9:00:00 CDT Notes: (Same as:Yonatan Leiva)WASTE: F/P - Black; E - Municipal Trash Bin Give with food. Start Date: 10/14/18 Stop Date: 10/15/18 Status: Discontinued naloxone 0.04 mg, 0.1 mL, Route: IVP, Drug form: INJ, Q2MIN, Dosing Weight 90.364, kg, AR N Narcotic Reversal, Start date: 10/09/18 11:07:00 CDT, Duration: 30 day, Stop d ate: 11/08/18 11:06:00 CDT Notes: Same as Narcan Start Date: 10/09/18 Stop Date: 10/10/18 Status: Discontinued neostigmine (ANES) Route: IV, Drug form: INJ, ONCE, Stop date: 10/09/18 11:13:00 CDT Start Date: 10/09/18 Stop Date: 10/09/18 Status: Completed [place] 10/325 oral tablet 1 tab, PO, TID, PRN Pain, # 60 tab, 0 Refill(s) Start Date: 09/28/18 Stop Date: 10/18/18 Status: Ordered [place] 10/325 oral tablet 2 tab, Route: PO, Drug Form: TAB, Dosing Weight 90.364, kg, Q4H, PRN Pain Score 6-10, Start date: 10/09/18 6:33:00 CDT, Duration: 30 day, Stop date: 11/08/18 6: 32:00 CDT Notes: Do not exceed 4gm/day of acetaminophen. (Same as: [place] 325/10) Start Date: 10/09/18 Stop Date: 10/11/18 Status: Discontinued [place] 10/325 oral tablet 1 tab, Route: PO, Drug Form: TAB, Dosing Weight 90.364, kg, Q4H, PRN Pain Score 1-5, Start date: 10/09/18 6:33:00 CDT, Duration: 30 day, Stop date: 11/08/18 6:3 2:00 CDT Notes: Do not exceed 4gm/day of acetaminophen. (Same as: [place] 325/10) Start Date: 10/09/18 Stop Date: 10/11/18 Status: Discontinued [place] 7.5/325 oral tablet 1 tab, Route: PO, Drug Form: TAB, Dosing Weight 90.364, kg, Q4H, PRN Pain Score 4-6, Start date: 10/09/18 11:07:00 CDT, Duration: 30 day, Stop date: 11/08/18 11 :06:00 CDT Start Date: 10/09/18 Stop Date: 10/09/18 Status: Deleted [place] 7.5/325 oral tablet 2 tab, Route: PO, Drug Form: TAB, Dosing Weight 90.364, kg, Q4H, PRN Pain Score 7-10, Start date: 10/09/18 11:07:00 CDT, Duration: 30 day, Stop date: 11/08/18 1 1:06:00 CDT Start Date: 10/09/18 Stop Date: 10/09/18 Status: Deleted NS (Bolus) IV 500 mL, 500 ml/hr, Infuse Over: 1 hr, Route: IV, 500, Drug form: INJ, ONCE, Prio rity: STAT, Dosing Weight 90.364 kg, Start date: 10/10/18 10:28:00 CDT, Stop ke e: 10/10/18 10:28:00 CDT Start Date: 10/10/18 Stop Date: 10/10/18 Status: Completed ondansetron (ANES) Route: IV, Drug form: INJ, ONCE, Stop date: 10/09/18 10:21:00 CDT Start Date: 10/09/18 Stop Date: 10/09/18 Status: Completed oxyCODONE 5 mg oral tablet, immediate release 10 mg, 2 tab, Route: PO, Drug form: TAB, Q4H, Dosing Weight 90.364, kg, PRN Pain Score 6-10, Start date: 10/11/18 10:06:00 CDT, Duration: 30 day, Stop date: 10:05:00 CDT Notes: (Same as: Roxicodone) Start Date: 10/11/18 Stop Date: 10/15/18 Status: Discontinued Phenergan 6.25 mg, Route: IVPB, ONCE, Dosing Weight 90.364, kg, Start date: 10/09/18 12:20 :00 CDT, Stop date: 10/09/18 12:20:00 CDT Start Date: 10/09/18 Stop Date: 10/09/18 Status: Completed propofol (ANES) Route: IV, Drug form: INJ, ONCE, Stop date: 10/09/18 10:21:00 CDT Start Date: 10/09/18 Stop Date: 10/09/18 Status: Completed [place]STON Pericapsular INJ 100 mL, Route: InFILtration(local), Drug Form: INJ, Dosing Weight 90.364, kg, [employer], Start date: 10/09/18 7:00:00 CDT, Duration: 30 day, Stop date: 11/08/18 6: 59:00 CDT Start Date: 10/09/18 Stop Date: 10/09/18 Status: Deleted [place] Pericapsular INJ 100 mL, Route: InFILtration(local), Drug Form: INJ, Dosing Weight 90.364, kg, [employer], Start date: 10/09/18 5:00:00 CDT, Duration: 30 day, Stop date: 11/08/18 4: 59:00 CDT Notes: NOT FOR IV useEach mL contains: Ropivacaine 2.46 mg, Epinephrine 0. 005 mg, Clonidine 0.0008 mg and Ketorolac 0.3 mg in Sodium Chloride Start Date: 10/09/18 Stop Date: 10/15/18 Status: Discontinued rocuronium (ANES) Route: IV, Drug form: INJ, ONCE, Stop date: 10/09/18 10:21:00 CDT Start Date: 10/09/18 Stop Date: 10/09/18 Status: Completed Tegretol 400 mg, 2 tab, Route: PO, Drug form: TAB, Bedtime, Start date: 10/09/18 21:00:00 CDT, Duration: 30 day, Stop date: 11/07/18 21:00:00 CDT Notes: With food. (Same As: Tegretol) Start Date: 10/09/18 Stop Date: 10/15/18 Status: Discontinued tranexamic acid (ANES) Route: IV, Drug form: INJ, ONCE, Stop date: 10/09/18 10:26:00 CDT Start Date: 10/09/18 Stop Date: 10/09/18 Status: Completed Tylenol 650 mg, 2 tab, Route: PO, Drug form: TAB, Q6H, Dosing Weight 90.364, kg, PRN For Temp > 100.4 F, Start date: 10/09/18 11:07:00 CDT, Duration: 30 day, Stop date: 11/08/18 11:06:00 CDT Notes: Do not exceed 4 gm/day. (Same as: Tylenol) Start Date: 10/09/18 Stop Date: 10/15/18 Status: Discontinued Tylenol 325 mg, 1 supp, Route: AR, Drug form: SUPP, Q4H, Dosing Weight 90.364, kg, PRN P ain Score 4-6, Start date: 10/15/18 8:37:00 CDT, Duration: 30 day, Stop date: 8:36:00 CDT Notes: Max ozdgaetrcyrvy=8602 mg/day (4 gm/day). (Same as: Tylenol) Start Date: 10/15/18 Stop Date: 10/15/18 Status: Discontinued Valium 5 mg, 1 mL, Route: IV, Drug form: INJ, Q6H, Dosing Weight 90.364, kg, PRN Spasm, Start date: 10/09/18 11:07:00 CDT, Duration: 30 day, Stop date: 11/08/18 11:06: 00 CDT Notes: (Same as: Valium) Start Date: 10/09/18 Stop Date: 10/15/18 Status: Discontinued Valium 5 mg, Route: IV, Q6H, Dosing Weight 90.364, kg, PRN Spasm, Start date: 10/09/18 6:23:00 CDT, Duration: 30 day, Stop date: 11/08/18 6:22:00 CDT Start Date: 10/09/18 Stop Date: 10/09/18 Status: Deleted vancomycin (ANES) 1000 mg Route: IV, Drug form: INJ, Start date: 10/09/18 9:24:00 CDT, Stop date: 10/09/18 10:24:00 CDT Start Date: 10/09/18 Stop Date: 10/09/18 Status: Completed Zofran 4 mg, 2 mL, Route: IV, Drug form: INJ, Q6H, Dosing Weight 90.364, kg, Start date : 10/09/18 15:00:00 CDT, Duration: 1 day, Stop date: 10/10/18 9:00:00 CDT Notes: (Same as: Zofran) MEDICATION WASTE Product Size: 4 mgProduct Was reynold: ___ mg Start Date: 10/09/18 Stop Date: 10/10/18 Status: Completed Zofran 4 mg, 2 mL, Route: IVP, Drug form: INJ, Q6H, Dosing Weight 90.364, kg, PRN Nause a, Start date: 10/11/18 8:28:00 CDT, Duration: 30 day, Stop date: 11/10/18 8:27: 00 CDT Notes: (Same as: Zofran) MEDICATION WASTE Product Size: 4 mgProduct Was reynold: ___ mg Start Date: 10/11/18 Stop Date: 10/15/18 Status: Discontinued zolpidem 5 mg, 1 tab, Route: PO, Drug form: TAB, Bedtime, Start date: 10/09/18 21:00:00 C DT, Duration: 30 day, Stop date: 11/07/18 21:00:00 CDT Notes: (Same As: [place]) Start Date: 10/09/18 Stop Date: 10/15/18 Status: Discontinued Results BLOOD BANK RESULTS 1 2 3 Most recent to oldest [Reference Range]: O POS *Unknown* (10/09/18 7:51 AM) O POS *Unknown* (09/28/18 3:47 PM) ABO/Rh Negative (10/09/18 7:51 AM) Negative (09/28/18 3:47 PM) Antibody Scrn Product available (09/28/18 3:36 PM) RBC product ELECTROLYTES 1 2 3 Most recent to oldest [Reference Range]: 141 mEq/L (10/10/18 3:16 AM) 143 mEq/L (10/09/18 1:37 PM) 145 mEq/L (09/28/18 3:47 PM) Sodium Lvl [135-145 mEq/L] 4.3 mEq/L (10/10/18 3:16 AM) 4.1 mEq/L (10/09/18 1:37 PM) 4.9 mEq/L (09/28/18 3:47 PM) Potassium Lvl [3.5-5.1 mEq/L] 108 mEq/L (10/10/18 3:16 AM) 109 mEq/L (10/09/18 1:37 PM) 109 mEq/L (09/28/18 3:47 PM) Chloride Lvl [95-109 mEq/L] 28 mEq/L (10/10/18 3:16 AM) 31 mEq/L (10/09/18 1:37 PM) 31 mEq/L (09/28/18 3:47 PM) CO2 [24-32 mEq/L] 9.3 mEq/L *LOW* (10/10/18 3:16 AM) 7.1 mEq/L *LOW* (10/09/18 1:37 PM) 9.9 mEq/L *LOW* (09/28/18 3:47 PM) AGAP [10.0-20.0 mEq/L] CHEM PANEL 1 2 3 Most recent to oldest [Reference Range]: 0.72 mg/dL (10/10/18 3:16 AM) 0.62 mg/dL (10/09/18 1:37 PM) 0.69 mg/dL (09/28/18 3:47 PM) Creatinine Lvl [0.50-1.40 mg/dL] 89 mL/min/1.73m2 1 *NA* (10/10/18 3:16 AM) 96 mL/min/1.73m2 2 *NA* (10/09/18 1:37 PM) 93 mL/min/1.73m2 3 *NA* (09/28/18 3:47 PM) eGFR 13 mg/dL (10/10/18 3:16 AM) 15 mg/dL (10/09/18 1:37 PM) 12 mg/dL (09/28/18 3:47 PM) BUN [7-22 mg/dL] 123 mg/dL *HI* (10/10/18 3:16 AM) 102 mg/dL *HI* (10/09/18 1:37 PM) 85 mg/dL (09/28/18 3:47 PM) Glucose Lvl [70-99 mg/dL] 7.6 mg/dL *LOW* (10/10/18 3:16 AM) 8.2 mg/dL *LOW* (10/09/18 1:37 PM) 8.9 mg/dL (09/28/18 3:47 PM) Calcium Lvl [8.5-10.5 mg/dL] 1Result Comment: The eGFR is calculated using the [...] from the National Kid[employer] Disease Education Program ( NKDEP) which additionally recommends that when the eGFR is used in patients with extremes of body mass index for purposes of drug dosing, the eGFR should be mul tiplied by the estimated BMI. 2Result Comment: The eGFR is calculated using the [...] from the National Kid[employer] Education Program ( NKDEP) which additionally recommends that when the eGFR is used in patients with extremes of body mass index for purposes of drug dosing, the eGFR should be mul tiplied by the estimated BMI. 3Result Comment: The eGFR is calculated using the [...] from the National Kid[employer] Disease Education Program ( NKDEP) which additionally recommends that when the eGFR is used in patients with extremes of body mass index for purposes of drug dosing, the eGFR should be mul tiplied by the estimated BMI. SPECIAL CHEMISTRY 1 2 3 Most recent to oldest [Reference Range]: 5.3 % (10/09/18 1:37 PM) Hgb A1C [<=5.6 %] HEMATOLOGY 1 2 3 Most recent to oldest [Reference Range]: 7.5 K/CMM (10/11/18 6:59 AM) 9.8 K/CMM (10/10/18 3:16 AM) 10.8 K/CMM *HI* (10/09/18 1:37 PM) WBC [3.7-10.4 K/CMM] 2.96 M/CMM *LOW* (10/11/18 6:59 AM) 3.15 M/CMM *LOW* (10/10/18 3:16 AM) 3.40 M/CMM *LOW* (10/09/18 1:37 PM) RBC [4.20-5.40 M/CMM] 10.1 g/dL *LOW* (10/15/18 11:11 AM) 9.9 g/dL *LOW* (10/11/18 6:59 AM) 10.6 g/dL *LOW* (10/10/18 5:35 PM) Hgb [12.0-16.0 g/dL] 28.8 % *LOW* (10/11/18 6:59 AM) 31.5 % *LOW* (10/10/18 5:35 PM) 31.0 % *LOW* (10/10/18 3:16 AM) Hct [36.0-48.0 %] 97.2 fL (10/11/18 6:59 AM) 98.5 fL *HI* (10/10/18 3:16 AM) 96.8 fL (10/09/18 1:37 PM) MCV [80.0-98.0 fL] 33.4 pg *HI* (10/11/18 6:59 AM) 33.1 pg *HI* (10/10/18 3:16 AM) 33.5 pg *HI* (10/09/18 1:37 PM) MCH [27.0-31.0 pg] 34.4 g/dL (10/11/18 6:59 AM) 33.6 g/dL (10/10/18 3:16 AM) 34.6 g/dL (10/09/18 1:37 PM) MCHC [32.0-36.0 g/dL] 12.5 % (10/11/18 6:59 AM) 12.7 % (10/10/18 3:16 AM) 12.9 % (10/09/18 1:37 PM) RDW [11.5-14.5 %] 8.2 fL (10/11/18 6:59 AM) 7.4 fL (10/10/18 3:16 AM) 7.7 fL (10/09/18 1:37 PM) MPV [7.4-10.4 fL] 184 K/CMM (10/11/18 6:59 AM) 206 K/CMM (10/10/18 3:16 AM) 226 K/CMM (10/09/18 1:37 PM) Platelet [133-450 K/CMM] 61.9 % (10/11/18 6:59 AM) 70.2 % (10/10/18 3:16 AM) 86.6 % *HI* (10/09/18 1:37 PM) Segs [45.0-75.0 %] 22.7 % (10/11/18 6:59 AM) 21.4 % (10/10/18 3:16 AM) 7.8 % *LOW* (10/09/18 1:37 PM) Lymphocytes [20.0-40.0 %] 11.1 % (10/11/18 6:59 AM) 8.1 % (10/10/18 3:16 AM) 5.3 % (10/09/18 1:37 PM) Monocytes [2.0-12.0 %] 4.0 % (10/11/18 6:59 AM) 0.1 % (10/10/18 3:16 AM) 0.1 % (10/09/18 1:37 PM) Eosinophils [0.0-4.0 %] 0.3 % (10/11/18 6:59 AM) 0.2 % (10/10/18 3:16 AM) 0.2 % (10/09/18 1:37 PM) Basophils [0.0-1.0 %] 4.6 K/CMM (10/11/18 6:59 AM) 6.9 K/CMM (10/10/18 3:16 AM) 9.3 K/CMM *HI* (10/09/18 1:37 PM) Neutrophils # [1.5-8.1 K/CMM] 1.7 K/CMM (10/11/18 6:59 AM) 2.1 K/CMM (10/10/18 3:16 AM) 0.8 K/CMM *LOW* (10/09/18 1:37 PM) Lymphocytes # [1.0-5.5 K/CMM] 0.8 K/CMM (10/11/18 6:59 AM) 0.8 K/CMM (10/10/18 3:16 AM) 0.6 K/CMM (10/09/18 1:37 PM) Monocytes # [0.0-0.8 K/CMM] 0.3 K/CMM (10/11/18 6:59 AM) 0.2 K/CMM (09/28/18 4:25 PM) Eosinophils # [0.0-0.5 K/CMM] 13.8 seconds (10/09/18 1:37 PM) 12.6 seconds (09/28/18 3:47 PM) PT [12.0-14.7 seconds] 1.08 (10/09/18 1:37 PM) 0.96 (09/28/18 3:47 PM) INR [0.85-1.17] 34.3 seconds (10/09/18 1:37 PM) 31.9 seconds (09/28/18 3:47 PM) PTT [22.9-35.8 seconds] Immunizations No data available for this section [...] No entered on: 10/09/18 Assessment and Plan Extracted from: Title: Cardiology Progress Note Author: Fredis Lewis MD Date: 10/15/18 Impression and Plan S/p R hip arthroplasty Hypotension Hx of obesity s/p gastric sleeve - Cont with judicious fluid resuscitation - BP has responded well to fluid - EKG reviewed, sinus rhythm - Echo reviewed, normal LV fnx - Hb dropped slightly, but is stable around 9-10 Thank you. Cardiology will follow.
[2019-02-07 07:15] VITALS: BP 118/80
== END | disposition home or self-care (01) ==
LOC: OR 05:00
PROVIDERS: ATTEND Physical Medicine & Rehabilitation Pain Medicine
DX: M47.896 Other spondylosis, lumbar region (principal); I10 Essential (primary) hypertension; M25.562 Pain in left knee; Z96.641 Presence of right artificial hip joint; M54.16 Radiculopathy, lumbar region; M46.1 Sacroiliitis, not elsewhere classified; G89.4 Chronic pain syndrome; Z88.6 Allergy status to analgesic agent; Z01.810 Encounter for preprocedural cardiovascular examination
CPT/HCPCS: 64493; 64494; 64495; 93005; J2001 ×2; J2250; J2704; J3010; J3301; Q9967; 77003

== ENCOUNTER → 2019-02-13 | Outpatient (CLI) | payer OTHER, MEDICARE ==
[~2019-02-13] MED LIST changes: -FENTANYL CITRATE/PF 100MCG/2 ML INJ ONE; -IOPAMIDOL 200 MG/ML 20 ML VIAL IT ONE; -LIDOCAINE HCL 1% 30ML-PF VIAL ONE; -LIDOCAINE HCL 2% LOCAL INJ 5 ML SDV VIAL INJ ONE; -MIDAZOLAM HCL 2 MG/2 ML VIAL ONE; -PROPOFOL IV EMULSION 10 MG/ML 20 ML VIAL ONE; -TRIAMCINOLONE ACET 40 MG/ML VIAL ONE
--- NOTE | 2019-02-13 12:55 | Diagnostic Imaging Report ---
PROCEDURE: Ultrasound Guided Fluid collection aspiration Procedural Personnel Attending physician(s): Pablo Clemons MD Fellow physician(s): None Resident physician(s): None Advanced practice provider(s): None Pre-procedure diagnosis: Left Man's Cyst Post-procedure diagnosis: Same Indication: Pain associated with fluid collection Additional clinical history: None Complications: No immediate complications. IMPRESSION: Percutaneous aspiration of left posterior knee Man's cyst, yielding 15 mL of serous yellow fluid. No drainage catheter was left in place. PROCEDURE SUMMARY: - Aspiration of left knee Man's cyst under ultrasound guidance - Additional procedure(s): None PROCEDURE DETAILS: Pre-procedure Consent: Informed consent for the procedure including risks, benefits and alternatives was obtained and time-out was performed prior to the procedure. Preparation: The site was prepared and draped using maximal sterile barrier technique including cutaneous antisepsis. Anesthesia/sedation Level of anesthesia/sedation: No sedation Anesthesia/sedation administered by: Independent trained observer under attending supervision with continuous monitoring of the patient?s level of consciousness and physiologic status Fluid collection aspiration The patient was positioned prone. Initial imaging was performed. Local anesthesia was administered. The fluid collection was accessed using an access needle. Position within the fluid collection was confirmed, and fluid aspiration was performed. All instruments were then removed. - Initial imaging findings: Left knee large Man's cyst - Aspiration needle/catheter: 20 gauge spinal needle exchanged for 5Fr catheter - Post-aspiration imaging findings: Decompression of Man's cyst Contrast Contrast agent: None Contrast volume (mL): 0 Radiation Dose None Additional Details Additional description of procedure: None Equipment details: None Specimens removed: Aspirated fluid was not sent for analysis. Estimated blood loss (mL): Less than 10 Standardized report: [email or web address] Attestation Signer name: Pablo Clemons MD I attest that I was present for the entire procedure. I reviewed the stored images and agree with the report as written. Signed by: Pablo Clemons MD on 02/13/2019 12:52 PM
== END ==
LOC: US 10:54
PROVIDERS: ATTEND Physical Medicine & Rehabilitation Pain Medicine
DX: M25.562 Pain in left knee (principal); M71.22 Synovial cyst of popliteal space [Baker], left knee
CPT/HCPCS: 10160; 76942

== ENCOUNTER → 2019-03-19 | Outpatient (CLI) | payer OTHER, MEDICARE ==
--- NOTE | 2019-03-19 10:44 | Diagnostic Imaging Report ---
TECHNIQUE: Magnetic resonance imaging of the LEFT KNEE was performed WITHOUT injected contrast. Motion artifact partially limits sensitivity and specificity of the exam. HISTORY: LEFT KNEE PAIN , recurring cyst back of knee COMPARISON: None available. FINDINGS: LIGAMENTS AND TENDONS: ACL: No normal intact visible fibers. PCL: Intact Collateral ligaments: The medial collateral ligament is intact, mildly bowed by the osteophytes and extruded medial meniscus. Increased intrasubstance signal of the proximal fibular collateral ligament near the femoral insertion, compatible with chronic stress-related changes. Iliotibial band: Intact. Popliteal tendon: Intact Extensor mechanism: Intact, minimal proximal patellar tendinosis. JOINT: Menisci: Medial: Diffuse complex tearing and attenuation, most notably the body, with peripheral extrusion of the body remnants. Lateral: Diffuse complex tearing and attenuation, most notably the body, with peripheral extrusion of the body remnants. Articular Cartilage: Medial Compartment: Diffuse full-thickness erosion of the weightbearing cartilage. Lateral Compartment: Diffuse full-thickness erosion of the posterior weightbearing cartilage. Patellofemoral Compartment: Diffuse erosions, high-grade to full-thickness at the medial patellar facet. Joint Fluid: Synovitis with a moderate nonspecific joint effusion. A multilobulated Man's cyst, in greatest dimensions measuring up to 3.6 cm (AP) x 5 cm (ML) x 8.2 cm (CC). BONES: The bone marrow signal is heterogeneous, compatible with red marrow conversion, no specific evidence of a focal bone marrow replacing abnormality. No acute fracture. SOFT TISSUES: Otherwise, unremarkable. IMPRESSION: 1. Advanced tricompartmental degenerative changes, including degenerative tearing of the menisci. 2. Reactive synovitis with associated moderate effusion and multilobulated Man's cyst. Signed by: Dr. Flavio Heath D.O., M.M.M. on 03/19/2019 10:40 AM
== END ==
LOC: MRI 08:31
PROVIDERS: ATTEND Physical Medicine & Rehabilitation Pain Medicine
DX: M25.562 Pain in left knee (principal)

== ENCOUNTER → 2019-03-21 | Day surgery (SDC) | payer OTHER, MEDICARE ==
[~2019-03-21] MED LIST changes: +BUPIVACAINE 0.25% 30ML SDV INJ ONE; +FENTANYL CITRATE/PF 100MCG/2 ML INJ ONE; +IOPAMIDOL 200 MG/ML 20 ML VIAL IT ONE; +LIDOCAINE HCL 1% 30ML-PF VIAL ONE; +LIDOCAINE HCL 2% LOCAL INJ 5 ML SDV VIAL INJ ONE; +MIDAZOLAM HCL 2 MG/2 ML VIAL ONE; +PROPOFOL IV EMULSION 10 MG/ML 20 ML VIAL ONE
--- OUTSIDE RECORDS SUMMARY | 2019-03-21 05:33 | XMS REPORT | Clinical Summary ---
Author Author [facility] Organization [facility] Address Unknown Phone Unavailable Care Team Providers Care Meeting/Event Planner Name Role Phone Kraig Cuello DO PCP [...] Use Types Packs/Day Years Used Never Smoker Drinks/Week oz/Week Comments Alcohol Use No Sex Assigned at Date Recorded Not on file Industry Job Start Date Occupation Not on file Not on file Not on file Travel End Travel History Travel Start No recent travel history available. Last Filed Vital Signs Not on file Plan of Treatment Health Maintenance Due Date Last Done Comments CERVICAL CANCER SCREENING 1976 BREAST CANCER SCREENING 2005 COLONOSCOPY SCREENING 2005 SHINGLES VACCINES (#1) 2005 INFLUENZA VACCINE 02/14/2019 Implants Device Identifier Shelf Expiration Date Model / Serial / Lot Implanted Type Area Manufactur er 10/14/2025 [id number] / / [id number] Shell Actblr Mul-Hl Sz Ii 52mm Hip Joint Left: Hip [employer] Continuum - [id number] Implants Implanted: Qty: 1 on 02/10/2016 by Tim Reynoso MD at [facility] 09/13/2025 [id number] / / [id number] Stem Hip Taper Kinectiv Tech Hip Joint Left: Hip [employer] Med-Lat 5c322dm - [id number] Implants Implanted: Qty: 1 on 02/10/2016 by Tim Reynoso MD at [facility] 05/16/2025 [id number] / / [id number] Head Feml Ceramc /14 Taperd Hip Joint Left: Hip [employer] 36x0mm Biolox Delta - [id number] Implants Implanted: Qty: 1 on 02/10/2016 by Tim Reynoso MD at [facility] 10/14/2025 [id number] / / [id number] Head Feml Ceramc /14 Taperd Hip Joint Left: Hip [employer] 36x0mm Biolox Delta - [id number] Implants Implanted: Qty: 1 on 09/01/2016 by Mason Sow II, MD at [facility] 05/16/2020 00 [id number] 36 / / [id number] Vit E Liner Neutral Ii 36 IPM Left: Hip [employer] - [id number] IMPLANT Implanted: Qty: 1 on 02/10/2016 by DEVICES Tim Reynoso MD at [facility] 08/16/2024 00 [id number] / / [id number] M/L Taper Kinectiv Neck Implant E1 IPM Left: Hip [employer] - [id number] IMPLANT Implanted: Qty: 1 on 02/10/2016 by DEVICES Tim Reynoso MD at [facility] 10/14/2025 00 [id number] / / [id number] M/L Taper Kinectiv Neck Implant Bb IPM Left: Hip [employer] - [id number] IMPLANT Implanted: Qty: 1 on 09/01/2016 by DEVICES Mason Sow II, MD at [facility] 05/16/2020 00 [id number] 36 / / [id number] Continuum Longevity Oblique Liner, IPM Left: Hip [employer] Ii 36 X 52 - [id number] IMPLANT Implanted: Qty: 1 on 09/01/2016 by DEVICES Mason Sow II, MD at [facility] [id number] / / Screw Bone Slf-Tap 6.5x30mm Trilogy Orthopedic Left: Hip [employer] - [id number] Trauma Implanted: Qty: 1 on 02/10/2016 by Implants Tim Reynoso MD at [facility] [id number] / / Screw Bone Slf-Tap 6.5x25mm Trilogy Orthopedic Left: Hip [employer] - [id number] Trauma Implanted: Qty: 1 on 02/10/2016 by Implants Tim Reynoso MD at [facility] Natasha Kinnectiv Left Hip Prosthesis Results Not on fileafter 03/20/2018 Insurance Type Payer Benefit Subscriber ID Effective Phone Address Plan / Dates Group HMO/PPO [facility] xxxxxxxxx 2015-P THCARE resent CHOICE/CHO ICE + Medicare MEDICARE MEDICARE xxxxxxxxxx 2006-P JEFF, PART A AND resent [place] B Advance Directives For more information, please contact: [phone] Patient Claims 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
--- OUTSIDE RECORDS SUMMARY | 2019-03-21 05:33 | XMS REPORT | Clinical Summary ---
Author Author [facility] Address Unknown Phone Unavailable Care Team Providers Care Automation Test Developer Name Role Phone Kraig Cuello DO PCP Allergies No Known Allergies Medications Not [...] Not on file Results Not on fileafter 03/20/2018 Insurance Payer Benefit Subscriber ID Type Phone Address Plan / Group MEDICARE MEDICARE A xxxxxxxxxx [facility] H[facility]/POS CARE POS [employer] viviane (Home) [place] [address]
--- OUTSIDE RECORDS SUMMARY | 2019-03-21 05:33 | XMS REPORT | Continuity of Care Document ---
Author Author [facility] Organization [facility] Address Unknown Phone Unavailable Care Team Providers Care Tax Compliance Agent Name Role Phone [employer] Unavailable Unavailable Problems Problem Status Onset Date Classification Date Reported Comments Source UNK Active 09/25/2018 [facility] HIP Active 06/16/2018 [facility] [place] TRIGEMINAL NEURALGIA Active 09/17/2012 [facility] Backache1 Active 05/09/2012 Problem 01/03/2019 Data migrated from [employer] on 03/10/15. [facility] [place] Risk for falls Active Problem 01/03/2019 [facility] [place] SOBOE (Confirmed) Active Problem 01/03/2019 [facility] [place] Cervical cancer Resolved Problem 01/03/2019 [facility] [place] Right facial numbness2 Active Problem 01/03/2019 with shooting pains [facility] [place] DJD (Confirmed)3 Active Problem 01/03/2019 right hip [facility] [place] Lumbar herniated disc Active Problem 01/03/2019 [facility] [place] Trigeminal neuralgia4 Active Problem 01/03/2019 Data migrated from [employer] on 03/10/15. [facility] [place] Encounter for general adult medical examination without abnormal findings 10/17/2018 [facility] Alcohol abuse, uncomplicated 10/17/2018 [facility] TRIGEMINAL NEURALGIA Active 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 (Same as: Tylenol) Inactive 10/15/2018 [facility] Tylenol 325 mg, 1 supp, Route: [place], Drug form: SUPP, Q4H, Dosing Weight 90.364, kg, PRN Pain Score 4-6, Start date: 10/15/18 8:37:00 CDT, Duration: 30 day, Stop date: 11/14/18 8:36:00 CDTNotes: Max cwykzzrmncmwm=7017 mg/day (4 gm/day). (Same as: Tylenol) Inactive 10/15/2018 [facility] multivitamin with minerals 1 tab, Route: PO, Drug Form: TAB, Dosing Weight 90.364, kg, Daily, Start date: 10/14/18 10:30:00 CDT, Duration: 30 day, Stop date: 11/13/18 9:00:00 CDTNotes: (Same as:Thera-M, Theragran-M) WASTE: F/P - Black; E - TRADE TO REBATE Trash Bin Give with food. No Longer Active 10/14/2018 [facility] Lyrica 150 mg, 2 cap, Route: PO, Drug form: CAP, Q8H, Dosing Weight 90.364, kg, Start date: 10/11/18 16:00:00 CDT, Duration: 30 day, Stop date: 11/10/18 8:00:00 CDTNotes: (Same as: Lyrica) No Longer Active 10/11/2018 [facility] Oxycodone Hydrochloride 5 MG Oral Tablet 10 mg, 2 tab, Route: PO, Drug form: TAB, Q4H, Dosing Weight 90.364, kg, PRN Pain Score 6-10, Start date: 10/11/18 10:06:00 CDT, Duration: 30 day, Stop date: 11/10/18 10:05:00 CDTNotes: (Same as: Roxicodone) No Longer Active 10/11/2018 [facility] Zofran 4 mg, 2 mL, Route: IVP, Drug form: INJ, Q6H, Dosing Weight 90.364, kg, PRN Nausea, Start date: 10/11/18 8:28:00 CDT, Duration: 30 day, Stop date: 11/10/18 8:27:00 CDTNotes: (Same as: Zofran) MEDICATION WASTE Product Size: 4 mg Product Wasted: ___ mg No Longer Active 10/11/2018 [facility] NS (Bolus) IV 500 mL, 500 ml/hr, Infuse Over: 1 hr, Route: IV, 500, Drug form: INJ, ONCE, Priority: STAT, Dosing Weight 90.364 kg, Start date: 10/10/18 10:28:00 CDT, Stop date: 10/10/18 10:28:00 CDT Inactive 10/10/2018 [facility] Enoxaparin 40 mg, 0.4 mL, Route: SUB-Q, Drug form: INJ, Daily, Dosing Weight 90.364, kg, Start date: 10/10/18 9:00:00 CDT, Duration: 30 day, Stop date: 11/08/18 9:00:00 CDTNotes: (Same as: Lovenox) No Longer Active 10/10/2018 [facility] Carbamazepine 200 mg, 1 tab, Route: PO, Drug form: TAB, BID, Dosing Weight 90.364, kg, Start date: 10/10/18 8:00:00 CDT, Duration: 30 day, Stop date: 11/08/18 12:00:00 CDTNotes: With food. (Same As: Tegretol) No Longer Active 10/10/2018 [facility] Calcium Chloride 0.0014 MEQ/ML / Potassium Chloride 0.004 MEQ/ML / Sodium Chloride 0.103 MEQ/ML / Sodium Lactate 0.028 MEQ/ML Injectable Solution 500 mL, 500 ml/hr, Infuse Over: 1 hr, Route: IV, 500, Drug form: INJ, ONCE, Priority: STAT, Dosing Weight 90.364 kg, Start date: 10/09/18 23:33:00 CDT, Stop date: 10/09/18 23:33:00 CDT No Longer Active 10/10/2018 [facility] zolpidem 5 mg, 1 tab, Route: PO, Drug form: TAB, Bedtime, Start date: 10/09/18 21:00:00 CDT, Duration: 30 day, Stop date: 11/07/18 21:00:00 CDTNotes: (Same As: Ambien) No Longer Active 10/10/2018 [facility] Lunesta 3 mg, Route: PO, Bedtime, Dosing Weight 90.364, kg, Start date: 10/09/18 21:00:00 CDT, Duration: 30 day, Stop date: 11/07/18 21:00:00 CDT Inactive 10/10/2018 [facility] Lyrica 75 mg, 1 cap, Route: PO, Drug form: CAP, BID, Dosing Weight 90.364, kg, Start date: 10/09/18 21:00:00 CDT, Duration: 30 day, Stop date: 11/08/18 9:00:00 CDTNotes: (Same as: Lyrica) No Longer Active 10/10/2018 [facility] Tegretol 400 mg, 2 tab, Route: PO, Drug form: TAB, Bedtime, Start date: 10/09/18 21:00:00 CDT, Duration: 30 day, Stop date: 11/07/18 21:00:00 CDTNotes: With food. (Same As: Tegretol) No Longer Active 10/10/2018 [facility] Calcium Chloride 0.0014 MEQ/ML / Potassium Chloride [...] times, PRN Low Blood Pressure Inactive 10/10/2018 [facility] Cefazolin 1 gm, Route: IV, Q8H, Dosing Weight 90.364, kg, Start date: 10/09/18 17:00:00 CDT, Duration: 3 doses or times, Stop date: 10/10/18 9:00:00 CDT, ABX Indication: Surgical ProphylaxisNotes: (Same As: Ancef , Kefzol) MEDICATION WASTE Product Size: 1000 mg Product Wasted: ___ mg No Longer Active 10/09/2018 [facility] RN-Inform Pharmacy when POWER SAW OPERATOR discontinued to verify [place] RN-Inform Pharmacy when POWER SAW OPERATOR discontinued to verify [place], Attn:RN, Drug form: MISC, Route: MISC, QSHIFT, 10/09/18 16:00:00 CDT, Duration: 30 day, Stop date: 11/08/18 8:00:00 CDT Inactive 10/09/2018 [facility] Zofran 4 mg, 2 mL, Route: IV, Drug form: INJ, Q6H, Dosing Weight 90.364, kg, Start date: 10/09/18 15:00:00 CDT, Duration: 1 day, Stop date: 10/10/18 9:00:00 CDTNotes: (Same as: Zofran) MEDICATION WASTE Product Size: 4 mg Product Wasted: ___ mg No Longer Active 10/09/2018 [facility] pregabalin 75 MG Oral Capsule [Lyrica] 75 mg=1 cap, PO, BID, 0 Refill(s) Active 10/09/2018 [facility] Phenergan 6.25 mg, Route: IVPB, ONCE, Dosing Weight 90.364, kg, Start date: 10/09/18 12:20:00 CDT, Stop date: 10/09/18 12:20:00 CDT Inactive 10/09/2018 [facility] Oxycodone 10 mg, Route: PO, Drug form: TAB, Q4H, Dosing Weight 90.364, kg, PRN Pain Score 7-10, Start date: 10/09/18 11:15:00 CDT, Duration: 30 day, Stop date: 11/08/18 11:14:00 CDT Inactive 10/09/2018 [facility] Hydromorphone 0.5 mg, Route: IVP, Q5Min, Dosing Weight 90.364, kg, PRN Pain Score 7-10, Start date: 10/09/18 11:15:00 CDT, Duration: 4 doses or times, Stop date: Limited # of times Inactive 10/09/2018 [facility] Naloxone 0.4 mg, Route: IVP, Q2MIN, Dosing Weight 90.364, kg, PRN Narcotic Reversal, Start date: 10/09/18 11:15:00 CDT, Duration: 8 doses or times, Stop date: Limited # of times Inactive 10/09/2018 [facility] Diphenhydramine 12.5 mg, Route: IVP, Drug form: INJ, Q6H, Dosing Weight 90.364, kg, PRN Itching, Start date: 10/09/18 11:15:00 CDT, Duration: 30 day, Stop date: 11/08/18 11:14:00 CDT Inactive 10/09/2018 [facility] Fentanyl 50 microgram, Route: IVP, Q5Min, Dosing Weight 90.364, kg, PRN Pain Score 7-10, Priority: Routine, Start date: 10/09/18 11:15:00 CDT, Duration: 2 doses or times, Stop date: Limited # of times Inactive 10/09/2018 [facility] Flumazenil 0.2 mg, Route: IVP, PRN, Dosing Weight 90.364, kg, PRN Benzodiazepine Reversal, Initial dose, Start date: 10/09/18 11:15:00 CDT, Duration: 30 day, Stop date: 11/08/18 11:14:00 CDT Inactive 10/09/2018 [facility] Ondansetron 4 mg, Route: IVP, ONCE, Dosing Weight 90.364, kg, PRN Nausea & Vomiting, Start date: 10/09/18 11:15:00 CDT Inactive 10/09/2018 [facility] Meperidine 12.5 mg, Route: IVP, Q30Min, Dosing Weight 90.364, kg, PRN Other -See Comment, For shivering, Start date: 10/09/18 11:15:00 CDT, Duration: 2 doses or times, Stop date: Limited # of times Inactive 10/09/2018 [facility] Acetaminophen 1,000 mg, Route: PO, Drug form: TAB, ONCE, Dosing Weight 90.364, kg, PRN Pain Score 1-3, Start date: 10/09/18 11:15:00 CDT Inactive 10/09/2018 [facility] Labetalol 10 mg, Route: IVP, Q5Min, Dosing Weight 90.364, kg, PRN Elevated BP, Start date: 10/09/18 11:15:00 CDT, Duration: 5 doses or times, Stop date: Limited # of times Inactive 10/09/2018 [facility] Hydralazine 10 mg, Route: IVP, Q20Min, Dosing Weight 90.364, kg, PRN Elevated BP, Start date: 10/09/18 11:15:00 CDT, Duration: 2 doses or times, Stop date: Limited # of times Inactive 10/09/2018 [facility] glycopyrrolate (ANES) Route: IV, Drug form: INJ, ONCE, Stop date: 10/09/18 11:13:00 CDT Inactive 10/09/2018 [facility] neostigmine (ANES) Route: IV, Drug form: INJ, ONCE, Stop date: 10/09/18 11:13:00 CDT Inactive 10/09/2018 [facility] Hydromorphone 15 mg, 30 mL, Route: IV, POWER SAW OPERATOR Dose: 0.2 mg, POWER SAW OPERATOR Lockout: 8 minutes, Continuous Basal Rate: 0 mg, 4 Hour Limit (In MG): 6, Drug Form: INJ, Continuous, Start date: 10/09/18 11:07:00 CDT, Duration: 30 day, Stop date: 11/08/18 11:06:00 CDTNotes: (Same as: Dilaudid) conc=0.5 mg/ml Hydromorphone POWER SAW OPERATOR Dose: ;Delay: ;Basal: Inactive 10/09/2018 [facility] Naloxone 0.04 mg, 0.1 mL, Route: IVP, Drug form: INJ, Q2MIN, Dosing Weight 90.364, kg, PRN Narcotic Reversal, Start date: 10/09/18 11:07:00 CDT, Duration: 30 day, Stop date: 11/08/18 11:06:00 CDTNotes: Same as Narcan No Longer Active 10/09/2018 [facility] Acetaminophen 325 MG / Hydrocodone Bitartrate 7.5 MG Oral Tablet [[place] 7.5/325] 1 tab, Route: PO, Drug Form: TAB, Dosing Weight 90.364, kg, Q4H, PRN Pain Score 4-6, Start date: 10/09/18 11:07:00 CDT, Duration: 30 day, Stop date: 11/08/18 11:06:00 CDT Inactive 10/09/2018 [facility] Tylenol 650 mg, 2 tab, Route: PO, Drug form: TAB, Q6H, Dosing Weight 90.364, kg, PRN For Temp > 100.4 F, Start date: 10/09/18 11:07:00 CDT, Duration: 30 day, Stop date: 11/08/18 11:06:00 CDTNotes: Do not exceed 4 gm/day. (Same as: Tylenol) No Longer Active 10/09/2018 [facility] Valium 5 mg, 1 mL, Route: IV, Drug form: INJ, Q6H, Dosing Weight 90.364, kg, PRN Spasm, Start date: 10/09/18 11:07:00 CDT, Duration: 30 day, Stop date: 11/08/18 11:06:00 CDTNotes: (Same as: Valium) No Longer Active 10/09/2018 [facility] Lactated Ringers IV 1,000 mL 1,000 mL, Rate: 75 ml/hr, Infuse over: 13.3 hr, Route: IV, Dosing Weight 90.364 kg, Total Volume: 1,000, Start date: 10/09/18 11:07:00 CDT, Duration: 30 day, Stop date: 11/08/18 11:06:00 CDT, 2.08, m2 No Longer Active 10/09/2018 [facility] tranexamic acid (ANES) Route: IV, Drug form: INJ, ONCE, Stop date: 10/09/18 10:26:00 CDT Inactive 10/09/2018 [facility] lidocaine (ANES) Route: IV, Drug form: INJ, ONCE, Stop date: 10/09/18 10:21:00 CDT Inactive 10/09/2018 [facility] fentaNYL (ANES) Route: IV, Drug form: INJ, ONCE, Stop date: 10/09/18 10:21:00 CDT Inactive 10/09/2018 [facility] rocuronium (ANES) Route: IV, Drug form: INJ, ONCE, Stop date: 10/09/18 10:21:00 CDT Inactive 10/09/2018 [facility] propofol (ANES) Route: IV, Drug form: INJ, ONCE, Stop date: 10/09/18 10:21:00 CDT Inactive 10/09/2018 [facility] ceFAZolin (ANES) Route: IV, Drug form: INJ, ONCE, Stop date: 10/09/18 10:21:00 CDT Inactive 10/09/2018 [facility] ondansetron (ANES) Route: IV, Drug form: INJ, ONCE, Stop date: 10/09/18 10:21:00 CDT Inactive 10/09/2018 [facility] acetaminophen (ANES) Route: IV, Drug form: INJ, ONCE, Stop date: 10/09/18 10:21:00 CDT Inactive 10/09/2018 [facility] famotidine (ANES) Route: IV, Drug form: INJ, ONCE, Stop date: 10/09/18 10:21:00 CDT Inactive 10/09/2018 [facility] midazolam (ANES) Route: IV, Drug form: SOLN, ONCE, Stop date: 10/09/18 10:16:00 CDT Inactive 10/09/2018 [facility] vancomycin (ANES) 1000 mg Route: IV, Drug form: INJ, Start date: 10/09/18 9:24:00 CDT, Stop date: 10/09/18 10:24:00 CDT Inactive 10/09/2018 [facility] Lactated Ringers Injection IV (ANES) 1000 mL Route: IV, Total Volume: 1,000, Start date: 10/09/18 9:11:00 CDT, Stop date: 10/09/18 10:11:00 CDT Inactive 10/09/2018 [facility] Calcium Chloride 0.0014 MEQ/ML / Potassium Chloride 0.004 MEQ/ML / Sodium Chloride 0.103 MEQ/ML / Sodium Lactate 0.028 MEQ/ML Injectable Solution 1,000 mL, Rate: 25 ml/hr, Infuse over: 40 hr, Route: IV, Dosing Weight 90.364 kg, Total Volume: 1,000, Start date: 10/09/18 8:10:00 CDT, Duration: 30 day, Stop date: 11/08/18 8:09:00 CDT, 2.08, m2 Inactive 10/09/2018 [facility] gabapentin 300 mg, Route: PO, ONCALL, Dosing Weight 90.364, kg, Start date: 10/09/18 7:00:00 CDT, Duration: 30 day, Stop date: 11/08/18 6:59:00 CDT Inactive 10/09/2018 [facility] ropivacaine 100 mL, Route: InFILtration(local), Drug Form: INJ, Dosing Weight 90.364, kg, ONCALL, Start date: 10/09/18 7:00:00 CDT, Duration: 30 day, Stop date: 11/08/18 6:59:00 CDT Inactive 10/09/2018 [facility] celecoxib 400 mg, Route: PO, ONCALL, Dosing Weight 90.364, kg, (for CrCl > 90 mL/min), Start date: 10/09/18 7:00:00 CDT, Duration: 30 day, Stop date: 11/08/18 6:59:00 CDT Inactive 10/09/2018 [facility] Acetaminophen 325 MG / Hydrocodone Bitartrate 10 MG Oral Tablet [[place] 10/325] 2 tab, Route: PO, Drug Form: TAB, Dosing Weight 90.364, kg, Q4H, PRN Pain Score 6-10, Start date: 10/09/18 6:33:00 CDT, Duration: 30 day, Stop date: 11/08/18 6:32:00 CDTNotes: Do not exceed 4gm/day of acetaminophen. (Same as: [place] 325/10) No Longer Active 10/09/2018 [facility] Valium 5 mg, Route: IV, Q6H, Dosing Weight 90.364, kg, PRN Spasm, Start date: 10/09/18 6:23:00 CDT, Duration: 30 day, Stop date: 11/08/18 6:22:00 CDT Inactive 10/09/2018 [facility] ropivacaine 100 mL, Route: InFILtration(local), Drug Form: INJ, Dosing Weight 90.364, kg, ONCALL, Start date: 10/09/18 5:00:00 CDT, Duration: 30 day, Stop date: 11/08/18 4:59:00 CDTNotes: NOT FOR IV use Ea ch mL contains: Ropivacaine 2.46 mg, Epinephrine 0.005 mg, Clonidine 0.0008 mg and Ketorolac 0.3 mg in Sodium Chloride No Longer Active 10/09/2018 [facility] 0.4 ML Enoxaparin sodium 100 MG/ML Prefilled Syringe [Lovenox] 40 mg, SUB-Q, Daily, # 14 inj, 0 Refill(s) Active 10/08/2018 [facility] Cephalexin 500 MG Oral Capsule [Keflex] 500 mg=1 cap, PO, QID, X 10 day, # 40 cap, 0 Refill(s) Active 10/08/2018 [facility] Acetaminophen 325 MG / Hydrocodone Bitartrate 10 MG Oral Tablet [[place] 10/325] 1 tab, PO, TID, PRN Pain, # 60 tab, 0 Refill(s) Active 09/28/2018 [facility] carBAMazepine 200 mg oral tablet PO, 0 Refill(s) Active 09/28/2018 [facility] pregabalin 150 MG Oral Capsule [Lyrica] 150 mg=1 cap, PO, TID, # 90 cap, 0 Refill(s) No Longer Active 09/28/2018 [facility] Allergies, Adverse Reactions, Alerts Substance Category Reaction Severity Reaction type Status Date Reported Comments Source Adhesive Tape Assertion Drug allergy Active [facility] [place] Bandaids Assertion Drug allergy Active [facility] [place] Immunizations No Data Provided for This Section Results Order Name Results Value Reference Range Date Interpretation Comments Source HEMATOLOGY Hgb 10.1 12.0 - 16.0 10/15/2018 [facility] MCH 33.4 27.0 - 31.0 10/11/2018 [facility] MCHC 34.4 32.0 - 36.0 10/11/2018 [facility] MCV 97.2 80.0 - 98.0 10/11/2018 [facility] RDW 12.5 11.5 - 14.5 10/11/2018 [facility] Platelet 184 133 - 450 10/11/2018 [facility] MPV 8.2 7.4 - 10.4 10/11/2018 [facility] Hgb 9.9 12.0 - 16.0 10/11/2018 [facility] Hct 28.8 36.0 - 48.0 10/11/2018 [facility] RBC 2.96 4.20 - 5.40 10/11/2018 [facility] WBC 7.5 3.7 - 10.4 10/11/2018 [facility] Monocytes 11.1 2.0 - 12.0 10/11/2018 [facility] Eosinophils 4.0 0.0 - 4.0 10/11/2018 [facility] Segs 61.9 45.0 - 75.0 10/11/2018 [facility] Lymphocytes 22.7 20.0 - 40.0 10/11/2018 [facility] Eosinophils # 0.3 0.0 - 0.5 10/11/2018 [facility] Monocytes # 0.8 0.0 - 0.8 10/11/2018 [facility] HEMATOLOGY Basophils 0.3 0.0 - 1.0 10/11/2018 [facility] HEMATOLOGY Neutrophils # 4.6 1.5 - 8.1 10/11/2018 [facility] Lymphocytes # 1.7 1.0 - 5.5 10/11/2018 [facility] HEMATOLOGY Hct 31.5 36.0 - 48.0 10/10/2018 [facility] HEMATOLOGY Hgb 10.6 12.0 - 16.0 10/10/2018 [facility] ELECTROLYTES CO2 28 24 - 32 10/10/2018 [facility] ELECTROLYTES Calcium Lvl 7.6 8.5 - 10.5 10/10/2018 [facility] ELECTROLYTES Chloride Lvl 108 95 - 109 10/10/2018 [facility] ELECTROLYTES AGAP 9.3 10.0 - 20.0 10/10/2018 [facility] eGFR 89 10/10/2018 Result Comment: The eGFR [...] should be multiplied by the estimated BMI. [facility] ELECTROLYTES BUN 13 7 - 22 10/10/2018 [facility] ELECTROLYTES Glucose Lvl 123 70 - 99 10/10/2018 [facility] ELECTROLYTES Sodium Lvl 141 135 - 145 10/10/2018 [facility] ELECTROLYTES Potassium Lvl 4.3 3.5 - 5.1 10/10/2018 [facility] ELECTROLYTES Creatinine Lvl 0.72 0.50 - 1.40 10/10/2018 [facility] Monocytes # 0.8 0.0 - 0.8 10/10/2018 [facility] Lymphocytes # 2.1 1.0 - 5.5 10/10/2018 [facility] Neutrophils # 6.9 1.5 - 8.1 10/10/2018 [facility] Lymphocytes 21.4 20.0 - 40.0 10/10/2018 [facility] Monocytes 8.1 2.0 - 12.0 10/10/2018 [facility] Segs 70.2 45.0 - 75.0 10/10/2018 [facility] HEMATOLOGY Eosinophils 0.1 0.0 - 4.0 10/10/2018 [facility] Basophils 0.2 0.0 - 1.0 10/10/2018 [facility] Platelet 206 133 - 450 10/10/2018 [facility] MPV 7.4 7.4 - 10.4 10/10/2018 [facility] MCHC 33.6 32.0 - 36.0 10/10/2018 [facility] RDW 12.7 11.5 - 14.5 10/10/2018 [facility] MCH 33.1 27.0 - 31.0 10/10/2018 [facility] Hct 31.0 36.0 - 48.0 10/10/2018 [facility] MCV 98.5 80.0 - 98.0 10/10/2018 [facility] WBC 9.8 3.7 - 10.4 10/10/2018 [facility] RBC 3.15 4.20 - 5.40 10/10/2018 [facility] ELECTROLYTES AGAP 7.1 10.0 - 20.0 10/09/2018 [facility] ELECTROLYTES eGFR 96 10/09/2018 Result Comment: The [...] should be multiplied by the estimated BMI. [facility] ELECTROLYTES CO2 31 24 - 32 10/09/2018 [facility] ELECTROLYTES Calcium Lvl 8.2 8.5 - 10.5 10/09/2018 [facility] ELECTROLYTES Chloride Lvl 109 95 - 109 10/09/2018 [facility] ELECTROLYTES Potassium Lvl 4.1 3.5 - 5.1 10/09/2018 [facility] ELECTROLYTES Sodium Lvl 143 135 - 145 10/09/2018 [facility] ELECTROLYTES Creatinine Lvl 0.62 0.50 - 1.40 10/09/2018 [facility] ELECTROLYTES BUN 15 7 - 22 10/09/2018 [facility] ELECTROLYTES Glucose Lvl 102 70 - 99 10/09/2018 [facility] HEMATOLOGY INR 1.08 0.85 - 1.17 10/09/2018 [facility] HEMATOLOGY PT 13.8 12.0 - 14.7 10/09/2018 [facility] HEMATOLOGY RDW 12.9 11.5 - 14.5 10/09/2018 [facility] HEMATOLOGY Platelet 226 133 - 450 10/09/2018 [facility] HEMATOLOGY MPV 7.7 7.4 - 10.4 10/09/2018 [facility] HEMATOLOGY RBC 3.40 4.20 - 5.40 10/09/2018 [facility] HEMATOLOGY WBC 10.8 3.7 - 10.4 10/09/2018 [facility] HEMATOLOGY MCHC 34.6 32.0 - 36.0 10/09/2018 [facility] HEMATOLOGY MCV 96.8 80.0 - 98.0 10/09/2018 [facility] HEMATOLOGY MCH 33.5 27.0 - 31.0 10/09/2018 [facility] HEMATOLOGY PTT 34.3 22.9 - 35.8 10/09/2018 [facility] HEMATOLOGY Monocytes # 0.6 0.0 - 0.8 10/09/2018 [facility] HEMATOLOGY Segs 86.6 45.0 - 75.0 10/09/2018 [facility] HEMATOLOGY Eosinophils 0.1 0.0 - 4.0 10/09/2018 [facility] HEMATOLOGY Basophils 0.2 0.0 - 1.0 10/09/2018 [facility] HEMATOLOGY Monocytes 5.3 2.0 - 12.0 10/09/2018 [facility] HEMATOLOGY Lymphocytes # 0.8 1.0 - 5.5 10/09/2018 [facility] HEMATOLOGY Neutrophils # 9.3 1.5 - 8.1 10/09/2018 [facility] HEMATOLOGY Lymphocytes 7.8 20.0 - 40.0 10/09/2018 [facility] SPECIAL CHEMISTRY Hgb A1C 5.3 <=5.6 % 10/09/2018 [facility] BLOOD BANK RESULTS ABO/Rh O POS 10/09/2018 [facility] BLOOD BANK RESULTS Antibody Scrn Negative (10/09/18 7:51 AM) 10/09/2018 [facility] HEMATOLOGY Eosinophils # 0.2 0.0 - 0.5 09/28/2018 [facility] BLOOD BANK RESULTS ABO/Rh O POS 09/28/2018 [facility] BLOOD BANK RESULTS Antibody Scrn Negative (09/28/18 3:47 PM) 09/28/2018 [facility] ELECTROLYTES AGAP 9.9 10.0 - 20.0 09/28/2018 [facility] ELECTROLYTES eGFR 93 09/28/2018 Result Comment: The [...] should be multiplied by the estimated BMI. [facility] ELECTROLYTES Glucose Lvl 85 70 - 99 09/28/2018 [facility] ELECTROLYTES Sodium Lvl 145 135 - 145 09/28/2018 [facility] ELECTROLYTES Creatinine Lvl 0.69 0.50 - 1.40 09/28/2018 [facility] ELECTROLYTES BUN 12 7 - 22 09/28/2018 [facility] ELECTROLYTES Potassium Lvl 4.9 3.5 - 5.1 09/28/2018 [facility] ELECTROLYTES CO2 31 24 - 32 09/28/2018 [facility] ELECTROLYTES Chloride Lvl 109 95 - 109 09/28/2018 [facility] ELECTROLYTES Calcium Lvl 8.9 8.5 - 10.5 09/28/2018 [facility] HEMATOLOGY PTT 31.9 22.9 - 35.8 09/28/2018 [facility] HEMATOLOGY INR 0.96 0.85 - 1.17 09/28/2018 [facility] HEMATOLOGY PT 12.6 12.0 - 14.7 09/28/2018 [facility] BLOOD BANK RESULTS RBC product Product available (09/28/18 3:36 PM) 09/28/2018 [facility] Pathology Reports No Data Provided for This Section Diagnostic Reports Report Value Date Source Hip 1 view DX Patient Name: VALENCIA CASPER : 1955; Age: 63 years y/o Female MR: [id number] Right hip, 1 view, portable, postoperative HISTORY: Postoperative study, following right hip arthroplasty. TECHNIQUE: A single portable postoperative frontal view of the right hip was obtained. IMPRESSION: The right total hip prosthesis is in good position. There is no evidence of unexpected fracture or other complication. There is postoperative soft tissue gas. There are lateral surgical skin moody. SL: [id number] 10/09/2018 [facility] Hip 1 view DX Patient Name: VALENCIA CASPER : 1955; Age: 63 years y/o Female MR: [id number] * RIGHT HIP, intraoperative, History: Intraoperative radiographs [...] seen with the various positional maneuvers. SL: [id number] 10/09/2018 [facility] Consultation Notes No Data Provided for This Section Discharge Summaries No Data Provided for This Section History and Physicals No Data Provided for This Section Vital Signs Vital Sign Value Date Comments Source Temperature Oral (F) 98.1 F 10/15/2018 [facility] Heart Rate 70 10/15/2018 [facility] Respitory Rate 16 10/15/2018 [facility] Systolic (mm Hg) 104 10/15/2018 [facility] Diastolic (mm Hg) 70 10/15/2018 [facility] Heart Rate 69 10/15/2018 [facility] Temperature Oral (F) 97.6 F 10/15/2018 [facility] Systolic (mm Hg) 105 10/15/2018 [facility] Diastolic (mm Hg) 71 10/15/2018 [facility] Respitory Rate 16 10/15/2018 [facility] Systolic (mm Hg) 114 10/15/2018 [facility] Diastolic (mm Hg) 74 10/15/2018 [facility] Heart Rate 67 10/15/2018 [facility] Respitory Rate 18 10/15/2018 [facility] Temperature Oral (F) 97.9 F 10/15/2018 [facility] Height 167.64 cm 09/28/2018 [facility] BMI Calculated 32.15 09/28/2018 [facility] Weight 90.364 09/28/2018 [facility] Height 170.18 cm 10/10/2012 [facility] Weight 124.091 10/10/2012 [facility] Encounters Location Location Details Encounter Type Encounter Number Reason For Visit Attending Provider ADM Date DC Date Status Source [facility] MADDIE [id number] TRIGEMINAL NEURALGIA CLARI HANEY 05/23/2012 05/23/2012 Active [facility] MADDIE [id number] TRIGEMINAL NEURALGIA CLARI HANEY 10/10/2012 10/10/2012 Active [facility] Inpatient [id number] [place] 10/09/2018 10/15/2018 [facility] [place] [facility] [id number] [place] 10/31/2018 11/30/2018 [facility] [place] [facility] [id number] [place] 12/03/2018 01/02/[address] [facility] MADDIE [id number] TRIGEMINAL NEURALGIA CLARI HANEY Cancel [facility] Procedures Procedure Code Date Perfomer Comments Source Cholecystectomy [id number] [facility] Colonoscopy [id number] [facility] Hip arthroplasty [id number] [facility] Hysterectomy [id number] [facility] Lumbar epidural injection [id number] [facility] Revision of hip arthroplasty<sup>1</sup> [id number] 2 months after original arthroplasty [facility] Sleeve resection of stomach [id number] [facility] Assessment and Plan Assessment and Plan Date [...] Cessation Counseling No entered on: 10/09/18 10/09/2018 [facility] [place] Social History TypeResponse Substance Abuse Use: None. Alcohol Never Smoking Status Never smoker; Previous treatment: None; Exposure to Tobacco Smoke None; Cigarette Smoking Last 365 Days No; Reg Smoking Cessation Counseling No entered on: 10/09/18 10/09/2018 [facility] Family History No Data Provided for This Section Advance Directives No Data Provided for This Section Functional Status No Data Provided for This Section
[2019-03-21 08:50] VITALS: BP 124/74
== END | disposition home or self-care (01) ==
LOC: OR 05:31
PROVIDERS: ATTEND Physical Medicine & Rehabilitation Pain Medicine
DX: G50.0 Trigeminal neuralgia (principal); G90.59 Complex regional pain syndrome I of other specified site; M46.1 Sacroiliitis, not elsewhere classified; M48.062 Spinal stenosis, lumbar region with neurogenic claudication; M47.896 Other spondylosis, lumbar region; G57.00 Lesion of sciatic nerve, unspecified lower limb; M71.20 Synovial cyst of popliteal space [Baker], unspecified knee; M25.562 Pain in left knee; I10 Essential (primary) hypertension; Z88.6 Allergy status to analgesic agent; Z96.642 Presence of left artificial hip joint; Z96.641 Presence of right artificial hip joint
CPT/HCPCS: 64510; 77003; J2001 ×2; J2250; J2704; J3010; Q9967

== ENCOUNTER → 2019-03-25 | Emergency (ER) | payer OTHER, MEDICARE ==
[~2019-03-25] VITALS: Ht 170.2 cm; Wt 129.3 kg
[~2019-03-25] MED LIST changes: -BUPIVACAINE 0.25% 30ML SDV INJ ONE; -FENTANYL CITRATE/PF 100MCG/2 ML INJ ONE; -IOPAMIDOL 200 MG/ML 20 ML VIAL IT ONE; -LIDOCAINE HCL 1% 30ML-PF VIAL ONE; -LIDOCAINE HCL 2% LOCAL INJ 5 ML SDV VIAL INJ ONE; +MEPERIDINE HCL INJ 50 MG/ML INJ IM ONE; -MIDAZOLAM HCL 2 MG/2 ML VIAL ONE; +PROMETHAZINE HCL (IM) 25 MG/ML VIAL IM ONE; -PROPOFOL IV EMULSION 10 MG/ML 20 ML VIAL ONE
--- OUTSIDE RECORDS SUMMARY | 2019-03-25 14:09 | XMS REPORT | Clinical Summary ---
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 Name Role Phone Kraig Cuello DO PCP [...] Sister SABAS Relation Name Status Comments Brother STEHPIE Alive Brother ANA Alive Brother SHERIDAN Brother [...] Lot Implanted Type Area Manufactur er 10/14/2025 [id number] / / [id number] Shell Actblr Mul-Hl Sz Ii 52mm Hip Joint Left: Hip [employer] Continuum - [id number] Implants Implanted: Qty: 1 on 02/10/2016 by Tim Reynoso MD at [facility] 09/13/2025 [id number] / / [id number] Stem Hip Taper Kinectiv Tech Hip Joint Left: Hip [employer] Med-Lat 3c349ai - [id number] Implants Implanted: Qty: 1 on 02/10/2016 by Tim Reynoso MD at [facility] 05/16/2025 [id number] / / [id number] Head Feml Ceramc /14 Taperd Hip Joint Left: Hip [employer] 36x0mm Biolox Delta - [id number] Implants Implanted: Qty: 1 on 02/10/2016 by Tim Reynoso MD at [facility] 10/14/2025 [id number] / / [id number] Head Feml Ceramc /14 Taperd Hip Joint Left: Hip [employer] 36x0mm Biolox Delta - [id number] Implants Implanted: Qty: 1 on 09/01/2016 by Mason Sow II, MD at [facility] 05/16/2020 00 [id number] 36 / / [id number] Vit E Liner Neutral Ii 36 IPM Left: Hip [employer] - [id number] IMPLANT Implanted: Qty: 1 on 02/10/2016 by DEVICES Tim Reynoso MD at [facility] 08/16/2024 00 7848 012 / / [id number] M/L Taper Kinectiv Neck Implant E1 IPM Left: Hip [employer] - [id number] IMPLANT Implanted: Qty: 1 on 02/10/2016 by DEVICES Tim Reynoso MD at [facility] 10/14/2025 00 7848 022 / / [id number] M/L Taper Kinectiv Neck Implant Bb IPM Left: Hip [employer] - [id number] IMPLANT Implanted: Qty: 1 on 09/01/2016 by DEVICES Mason Sow II, MD at [facility] 05/16/2020 00 8755 010 36 / / [id number] Continuum Longevity Oblique Liner, IPM Left: Hip [employer] Ii 36 X 52 - [id number] IMPLANT Implanted: Qty: 1 on 09/01/2016 by DEVICES Mason Sow II, MD at [facility] [id number] / / Screw Bone Slf-Tap 6.5x30mm Trilogy Orthopedic Left: Hip [employer] - [id number] Trauma Implanted: Qty: 1 on 02/10/2016 by Implants Tim Reynoso MD at [facility] [id number] / / Screw Bone Slf-Tap 6.5x25mm Trilogy Orthopedic Left: Hip [employer] - [id number] Trauma Implanted: Qty: 1 on 02/10/2016 by Implants Tim Reynoso MD at [facility] Natasha Kinnectiv Left Hip Prosthesis Results Not on fileafter 03/24/2018 Insurance Type Payer Benefit Subscriber ID Effective Phone Address Plan / Dates Group HMO/PPO [facility] xxxxxxxxx 2015-P THCARE resent CHOICE/CHO ICE + Medicare MEDICARE MEDICARE xxxxxxxxxx 2006-P JEFF, PART A AND resent [place] B Advance Directives For more information, please contact: [phone] Patient Technical Spec Explanation Type Date Recorded Advance Directives, Living Will and 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
--- OUTSIDE RECORDS SUMMARY | 2019-03-25 14:10 | XMS REPORT | Continuity of Care Document ---
Author Author [employer] Organization [employer] Address Unknown Phone Unavailable Care Team Providers Care [employer] Name Role Phone Tapingo Information [employer] Unavailable Unavailable Problems Problem Status Onset Date Classification Date Reported Comments Source UNK Active 09/25/2018 [facility] HIP Active 06/16/2018 [facility] [place] TRIGEMINAL NEURALGIA Active 09/17/2012 [facility] Backache1 Active 05/09/2012 Problem 01/03/2019 Data migrated from [employer] on 03/10/15. [facility] [place] Risk for falls Active Problem 01/03/2019 [facility] [place] SOBOE (Confirmed) Active Problem 01/03/2019 [facility] [place] Cervical cancer Resolved Problem 01/03/2019 [facility] [place] Right facial numbness2 Active Problem 01/03/2019 with shooting pains [facility] [place] DJD (Confirmed)3 Active Problem 01/03/2019 right hip [facility] [place] Lumbar herniated disc Active Problem 01/03/2019 [facility] [place] Trigeminal neuralgia4 Active Problem 01/03/2019 Data migrated from [employer] on 03/10/15. 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 [place] Medications Medication Details Route Status Patient Instructions Ordering Provider Order Date Source Acetaminophen 325 mg, 1 tab, Route: PO, Drug form: TAB, Q4H, Dosing Weight 90.364, kg, PRN Pain 1-3/Temp > 100.4 F, Start date: 10/15/18 9:25:00 CDT, Duration: 30 day, Stop date: 11/14/18 9:24:00 CDTNotes: Do not exceed 4 gm/day. (Same as: Tylenol) Inactive 10/15/2018 [facility] Tylenol 325 mg, 1 supp, Route: IL, Drug form: SUPP, Q4H, Dosing Weight 90.364, kg, PRN Pain Score 4-6, Start date: 10/15/18 8:37:00 CDT, Duration: 30 day, Stop date: 11/14/18 8:36:00 CDTNotes: Max lfofgtoaiplbl=0092 mg/day (4 gm/day). (Same as: Tylenol) Inactive 10/15/2018 [facility] multivitamin with minerals 1 tab, Route: PO, Drug Form: TAB, Dosing Weight 90.364, kg, Daily, Start date: 10/14/18 10:30:00 CDT, Duration: 30 day, Stop date: 11/13/18 9:00:00 CDTNotes: (Same as:Thera-M, Theragran-M) WASTE: F/P - Black; E - Converser Trash Bin Give with food. No Longer Active 10/14/2018 [facility] Lyrica 150 mg, 2 cap, Route: PO, Drug form: CAP, Q8H, Dosing Weight 90.364, kg, Start date: 10/11/18 16:00:00 CDT, Duration: 30 day, Stop date: 11/10/18 8:00:00 CDTNotes: (Same as: Lyrica) No Longer Active 10/11/2018 [facility] Oxycodone Hydrochloride 5 MG Oral Tablet 10 mg, 2 tab, Route: PO, Drug form: TAB, Q4H, Dosing Weight 90.364, kg, PRN Pain Score 6-10, Start date: 10/11/18 10:06:00 CDT, Duration: 30 day, Stop date: 11/10/18 10:05:00 CDTNotes: (Same as: Roxicodone) No Longer Active 10/11/2018 [facility] Zofran 4 mg, 2 mL, Route: IVP, Drug form: INJ, Q6H, Dosing Weight 90.364, kg, PRN Nausea, Start date: 10/11/18 8:28:00 CDT, Duration: 30 day, Stop date: 11/10/18 8:27:00 CDTNotes: (Same as: Zofran) MEDICATION WASTE Product Size: 4 mg Product Wasted: ___ mg No Longer Active 10/11/2018 [facility] NS (Bolus) IV 500 mL, 500 ml/hr, Infuse Over: 1 hr, Route: IV, 500, Drug form: INJ, ONCE, Priority: STAT, Dosing Weight 90.364 kg, Start date: 10/10/18 10:28:00 CDT, Stop date: 10/10/18 10:28:00 CDT Inactive 10/10/2018 [facility] Enoxaparin 40 mg, 0.4 mL, Route: SUB-Q, Drug form: INJ, Daily, Dosing Weight 90.364, kg, Start date: 10/10/18 9:00:00 CDT, Duration: 30 day, Stop date: 11/08/18 9:00:00 CDTNotes: (Same as: Lovenox) No Longer Active 10/10/2018 [facility] Carbamazepine 200 mg, 1 tab, Route: PO, Drug form: TAB, BID, Dosing Weight 90.364, kg, Start date: 10/10/18 8:00:00 CDT, Duration: 30 day, Stop date: 11/08/18 12:00:00 CDTNotes: With food. (Same As: Tegretol) No Longer Active 10/10/2018 [facility] Calcium Chloride 0.0014 MEQ/ML / Potassium Chloride 0.004 MEQ/ML / Sodium Chloride 0.103 MEQ/ML / Sodium Lactate 0.028 MEQ/ML Injectable Solution 500 mL, 500 ml/hr, Infuse Over: 1 hr, Route: IV, 500, Drug form: INJ, ONCE, Priority: STAT, Dosing Weight 90.364 kg, Start date: 10/09/18 23:33:00 CDT, Stop date: 10/09/18 23:33:00 CDT No Longer Active 10/10/2018 [facility] zolpidem 5 mg, 1 tab, Route: PO, Drug form: TAB, Bedtime, Start date: 10/09/18 21:00:00 CDT, Duration: 30 day, Stop date: 11/07/18 21:00:00 CDTNotes: (Same As: Ambien) No Longer Active 10/10/2018 [facility] Lunesta 3 mg, Route: PO, Bedtime, Dosing Weight 90.364, kg, Start date: 10/09/18 21:00:00 CDT, Duration: 30 day, Stop date: 11/07/18 21:00:00 CDT Inactive 10/10/2018 [facility] Lyrica 75 mg, 1 cap, Route: PO, Drug form: CAP, BID, Dosing Weight 90.364, kg, Start date: 10/09/18 21:00:00 CDT, Duration: 30 day, Stop date: 11/08/18 9:00:00 CDTNotes: (Same as: Lyrica) No Longer Active 10/10/2018 [facility] Tegretol 400 mg, 2 tab, Route: PO, Drug form: TAB, Bedtime, Start date: 10/09/18 21:00:00 CDT, Duration: 30 day, Stop date: 11/07/18 21:00:00 CDTNotes: With food. (Same As: Tegretol) No Longer Active 10/10/2018 [facility] Calcium Chloride 0.0014 MEQ/ML / Potassium [...] times, PRN Low Blood Pressure Inactive 10/10/2018 [facility] Cefazolin 1 gm, Route: IV, Q8H, Dosing Weight 90.364, kg, Start date: 10/09/18 17:00:00 CDT, Duration: 3 doses or times, Stop date: 10/10/18 9:00:00 CDT, ABX Indication: Surgical ProphylaxisNotes: (Same As: Ancef , Kefzol) MEDICATION WASTE Product Size: 1000 mg Product Wasted: ___ mg No Longer Active 10/09/2018 [facility] RN-Inform Pharmacy when [employer] discontinued to verify [place] RN-Inform Pharmacy when [employer] discontinued to verify [place], Attn:RN, Drug form: MISC, Route: MISC, QSHIFT, 10/09/18 16:00:00 CDT, Duration: 30 day, Stop date: 11/08/18 8:00:00 CDT Inactive 10/09/2018 [facility] Zofran 4 mg, 2 mL, Route: IV, Drug form: INJ, Q6H, Dosing Weight 90.364, kg, Start date: 10/09/18 15:00:00 CDT, Duration: 1 day, Stop date: 10/10/18 9:00:00 CDTNotes: (Same as: Zofran) MEDICATION WASTE Product Size: 4 mg Product Wasted: ___ mg No Longer Active 10/09/2018 [facility] pregabalin 75 MG Oral Capsule [Lyrica] 75 mg=1 cap, PO, BID, 0 Refill(s) Active 10/09/2018 [facility] Phenergan 6.25 mg, Route: IVPB, ONCE, Dosing Weight 90.364, kg, Start date: 10/09/18 12:20:00 CDT, Stop date: 10/09/18 12:20:00 CDT Inactive 10/09/2018 [facility] Oxycodone 10 mg, Route: PO, Drug form: TAB, Q4H, Dosing Weight 90.364, kg, PRN Pain Score 7-10, Start date: 10/09/18 11:15:00 CDT, Duration: 30 day, Stop date: 11/08/18 11:14:00 CDT Inactive 10/09/2018 [facility] Hydromorphone 0.5 mg, Route: IVP, Q5Min, Dosing Weight 90.364, kg, PRN Pain Score 7-10, Start date: 10/09/18 11:15:00 CDT, Duration: 4 doses or times, Stop date: Limited # of times Inactive 10/09/2018 [facility] Naloxone 0.4 mg, Route: IVP, Q2MIN, Dosing Weight 90.364, kg, PRN Narcotic Reversal, Start date: 10/09/18 11:15:00 CDT, Duration: 8 doses or times, Stop date: Limited # of times Inactive 10/09/2018 [facility] Diphenhydramine 12.5 mg, Route: IVP, Drug form: INJ, Q6H, Dosing Weight 90.364, kg, PRN Itching, Start date: 10/09/18 11:15:00 CDT, Duration: 30 day, Stop date: 11/08/18 11:14:00 CDT Inactive 10/09/2018 [facility] Fentanyl 50 microgram, Route: IVP, Q5Min, Dosing Weight 90.364, kg, PRN Pain Score 7-10, Priority: Routine, Start date: 10/09/18 11:15:00 CDT, Duration: 2 doses or times, Stop date: Limited # of times Inactive 10/09/2018 [facility] Flumazenil 0.2 mg, Route: IVP, PRN, Dosing Weight 90.364, kg, PRN Benzodiazepine Reversal, Initial dose, Start date: 10/09/18 11:15:00 CDT, Duration: 30 day, Stop date: 11/08/18 11:14:00 CDT Inactive 10/09/2018 [facility] Ondansetron 4 mg, Route: IVP, ONCE, Dosing Weight 90.364, kg, PRN Nausea & Vomiting, Start date: 10/09/18 11:15:00 CDT Inactive 10/09/2018 [facility] Meperidine 12.5 mg, Route: IVP, Q30Min, Dosing Weight 90.364, kg, PRN Other -See Comment, For shivering, Start date: 10/09/18 11:15:00 CDT, Duration: 2 doses or times, Stop date: Limited # of times Inactive 10/09/2018 [facility] Acetaminophen 1,000 mg, Route: PO, Drug form: TAB, ONCE, Dosing Weight 90.364, kg, PRN Pain Score 1-3, Start date: 10/09/18 11:15:00 CDT Inactive 10/09/2018 [facility] Labetalol 10 mg, Route: IVP, Q5Min, Dosing Weight 90.364, kg, PRN Elevated BP, Start date: 10/09/18 11:15:00 CDT, Duration: 5 doses or times, Stop date: Limited # of times Inactive 10/09/2018 [facility] Hydralazine 10 mg, Route: IVP, Q20Min, Dosing Weight 90.364, kg, PRN Elevated BP, Start date: 10/09/18 11:15:00 CDT, Duration: 2 doses or times, Stop date: Limited # of times Inactive 10/09/2018 [facility] glycopyrrolate (ANES) Route: IV, Drug form: INJ, ONCE, Stop date: 10/09/18 11:13:00 CDT Inactive 10/09/2018 [facility] neostigmine (ANES) Route: IV, Drug form: INJ, ONCE, Stop date: 10/09/18 11:13:00 CDT Inactive 10/09/2018 [facility] Hydromorphone 15 mg, 30 mL, Route: IV, [employer] Dose: 0.2 mg, [employer] Lockout: 8 minutes, Continuous Basal Rate: 0 mg, 4 Hour Limit (In MG): 6, Drug Form: INJ, Continuous, Start date: 10/09/18 11:07:00 CDT, Duration: 30 day, Stop date: 11/08/18 11:06:00 CDTNotes: (Same as: Dilaudid) conc=0.5 mg/ml Hydromorphone [employer] Dose: ;Delay: ;Basal: Inactive 10/09/2018 [facility] Naloxone 0.04 mg, 0.1 mL, Route: IVP, Drug form: INJ, Q2MIN, Dosing Weight 90.364, kg, PRN Narcotic Reversal, Start date: 10/09/18 11:07:00 CDT, Duration: 30 day, Stop date: 11/08/18 11:06:00 CDTNotes: Same as Narcan No Longer Active 10/09/2018 [facility] Acetaminophen 325 MG / Hydrocodone Bitartrate 7.5 MG Oral Tablet [[place] 7.5/325] 1 tab, Route: PO, Drug Form: TAB, Dosing Weight 90.364, kg, Q4H, PRN Pain Score 4-6, Start date: 10/09/18 11:07:00 CDT, Duration: 30 day, Stop date: 11/08/18 11:06:00 CDT Inactive 10/09/2018 [facility] Tylenol 650 mg, 2 tab, Route: PO, Drug form: TAB, Q6H, Dosing Weight 90.364, kg, PRN For Temp > 100.4 F, Start date: 10/09/18 11:07:00 CDT, Duration: 30 day, Stop date: 11/08/18 11:06:00 CDTNotes: Do not exceed 4 gm/day. (Same as: Tylenol) No Longer Active 10/09/2018 [facility] Valium 5 mg, 1 mL, Route: IV, Drug form: INJ, Q6H, Dosing Weight 90.364, kg, PRN Spasm, Start date: 10/09/18 11:07:00 CDT, Duration: 30 day, Stop date: 11/08/18 11:06:00 CDTNotes: (Same as: Valium) No Longer Active 10/09/2018 [facility] Lactated Ringers IV 1,000 mL 1,000 mL, Rate: 75 ml/hr, Infuse over: 13.3 hr, Route: IV, Dosing Weight 90.364 kg, Total Volume: 1,000, Start date: 10/09/18 11:07:00 CDT, Duration: 30 day, Stop date: 11/08/18 11:06:00 CDT, 2.08, m2 No Longer Active 10/09/2018 [facility] tranexamic acid (ANES) Route: IV, Drug form: INJ, ONCE, Stop date: 10/09/18 10:26:00 CDT Inactive 10/09/2018 [facility] lidocaine (ANES) Route: IV, Drug form: INJ, ONCE, Stop date: 10/09/18 10:21:00 CDT Inactive 10/09/2018 [facility] fentaNYL (ANES) Route: IV, Drug form: INJ, ONCE, Stop date: 10/09/18 10:21:00 CDT Inactive 10/09/2018 [facility] rocuronium (ANES) Route: IV, Drug form: INJ, ONCE, Stop date: 10/09/18 10:21:00 CDT Inactive 10/09/2018 [facility] propofol (ANES) Route: IV, Drug form: INJ, ONCE, Stop date: 10/09/18 10:21:00 CDT Inactive 10/09/2018 [facility] ceFAZolin (ANES) Route: IV, Drug form: INJ, ONCE, Stop date: 10/09/18 10:21:00 CDT Inactive 10/09/2018 [facility] ondansetron (ANES) Route: IV, Drug form: INJ, ONCE, Stop date: 10/09/18 10:21:00 CDT Inactive 10/09/2018 [facility] acetaminophen (ANES) Route: IV, Drug form: INJ, ONCE, Stop date: 10/09/18 10:21:00 CDT Inactive 10/09/2018 [facility] famotidine (ANES) Route: IV, Drug form: INJ, ONCE, Stop date: 10/09/18 10:21:00 CDT Inactive 10/09/2018 [facility] midazolam (ANES) Route: IV, Drug form: SOLN, ONCE, Stop date: 10/09/18 10:16:00 CDT Inactive 10/09/2018 [facility] vancomycin (ANES) 1000 mg Route: IV, Drug form: INJ, Start date: 10/09/18 9:24:00 CDT, Stop date: 10/09/18 10:24:00 CDT Inactive 10/09/2018 [facility] Lactated Ringers Injection IV (ANES) 1000 mL Route: IV, Total Volume: 1,000, Start date: 10/09/18 9:11:00 CDT, Stop date: 10/09/18 10:11:00 CDT Inactive 10/09/2018 [facility] Calcium Chloride 0.0014 MEQ/ML / Potassium Chloride 0.004 MEQ/ML / Sodium Chloride 0.103 MEQ/ML / Sodium Lactate 0.028 MEQ/ML Injectable Solution 1,000 mL, Rate: 25 ml/hr, Infuse over: 40 hr, Route: IV, Dosing Weight 90.364 kg, Total Volume: 1,000, Start date: 10/09/18 8:10:00 CDT, Duration: 30 day, Stop date: 11/08/18 8:09:00 CDT, 2.08, m2 Inactive 10/09/2018 [facility] gabapentin 300 mg, Route: PO, ONCALL, Dosing Weight 90.364, kg, Start date: 10/09/18 7:00:00 CDT, Duration: 30 day, Stop date: 11/08/18 6:59:00 CDT Inactive 10/09/2018 [facility] ropivacaine 100 mL, Route: InFILtration(local), Drug Form: INJ, Dosing Weight 90.364, kg, ONCALL, Start date: 10/09/18 7:00:00 CDT, Duration: 30 day, Stop date: 11/08/18 6:59:00 CDT Inactive 10/09/2018 [facility] celecoxib 400 mg, Route: PO, ONCALL, Dosing Weight 90.364, kg, (for CrCl > 90 mL/min), Start date: 10/09/18 7:00:00 CDT, Duration: 30 day, Stop date: 11/08/18 6:59:00 CDT Inactive 10/09/2018 [facility] Acetaminophen 325 MG / Hydrocodone Bitartrate 10 MG Oral Tablet [[place] 10/325] 2 tab, Route: PO, Drug Form: TAB, Dosing Weight 90.364, kg, Q4H, PRN Pain Score 6-10, Start date: 10/09/18 6:33:00 CDT, Duration: 30 day, Stop date: 11/08/18 6:32:00 CDTNotes: Do not exceed 4gm/day of acetaminophen. (Same as: [place] 325/10) No Longer Active 10/09/2018 [facility] Valium 5 mg, Route: IV, Q6H, Dosing Weight 90.364, kg, PRN Spasm, Start date: 10/09/18 6:23:00 CDT, Duration: 30 day, Stop date: 11/08/18 6:22:00 CDT Inactive 10/09/2018 [facility] ropivacaine 100 mL, Route: InFILtration(local), Drug Form: INJ, Dosing Weight 90.364, kg, ONCALL, Start date: 10/09/18 5:00:00 CDT, Duration: 30 day, Stop date: 11/08/18 4:59:00 CDTNotes: NOT FOR IV use Ea ch mL contains: Ropivacaine 2.46 mg, Epinephrine 0.005 mg, Clonidine 0.0008 mg and Ketorolac 0.3 mg in Sodium Chloride No Longer Active 10/09/2018 [facility] 0.4 ML Enoxaparin sodium 100 MG/ML Prefilled Syringe [Lovenox] 40 mg, SUB-Q, Daily, # 14 inj, 0 Refill(s) Active 10/08/2018 [facility] Cephalexin 500 MG Oral Capsule [Keflex] 500 mg=1 cap, PO, QID, X 10 day, # 40 cap, 0 Refill(s) Active 10/08/2018 [facility] Acetaminophen 325 MG / Hydrocodone Bitartrate 10 MG Oral Tablet [[place] 10/325] 1 tab, PO, TID, PRN Pain, # 60 tab, 0 Refill(s) Active 09/28/2018 [facility] carBAMazepine 200 mg oral tablet PO, 0 Refill(s) Active 09/28/2018 [facility] pregabalin 150 MG Oral Capsule [Lyrica] 150 mg=1 cap, PO, TID, # 90 cap, 0 Refill(s) No Longer Active 09/28/2018 [facility] Allergies, Adverse Reactions, Alerts Substance Category Reaction Severity Reaction type Status Date Reported Comments Source Adhesive Tape Assertion Drug allergy Active [facility] [place] Bandaids Assertion Drug allergy Active [facility] [place] Immunizations No Data Provided for This Section Results Order Name Results Value Reference Range Date Interpretation Comments Source HEMATOLOGY Hgb 10.1 12.0 - 16.0 10/15/2018 [facility] MCH 33.4 27.0 - 31.0 10/11/2018 [facility] MCHC 34.4 32.0 - 36.0 10/11/2018 [facility] MCV 97.2 80.0 - 98.0 10/11/2018 [facility] RDW 12.5 11.5 - 14.5 10/11/2018 [facility] Platelet 184 133 - 450 10/11/2018 [facility] MPV 8.2 7.4 - 10.4 10/11/2018 [facility] Hgb 9.9 12.0 - 16.0 10/11/2018 [facility] Hct 28.8 36.0 - 48.0 10/11/2018 [facility] RBC 2.96 4.20 - 5.40 10/11/2018 [facility] WBC 7.5 3.7 - 10.4 10/11/2018 [facility] Monocytes 11.1 2.0 - 12.0 10/11/2018 [facility] Eosinophils 4.0 0.0 - 4.0 10/11/2018 [facility] Segs 61.9 45.0 - 75.0 10/11/2018 [facility] Lymphocytes 22.7 20.0 - 40.0 10/11/2018 [facility] Eosinophils # 0.3 0.0 - 0.5 10/11/2018 [facility] Monocytes # 0.8 0.0 - 0.8 10/11/2018 [facility] HEMATOLOGY Basophils 0.3 0.0 - 1.0 10/11/2018 [facility] HEMATOLOGY Neutrophils # 4.6 1.5 - 8.1 10/11/2018 [facility] Lymphocytes # 1.7 1.0 - 5.5 10/11/2018 [facility] HEMATOLOGY Hct 31.5 36.0 - 48.0 10/10/2018 [facility] HEMATOLOGY Hgb 10.6 12.0 - 16.0 10/10/2018 [facility] ELECTROLYTES CO2 28 24 - 32 10/10/2018 [facility] ELECTROLYTES Calcium Lvl 7.6 8.5 - 10.5 10/10/2018 [facility] ELECTROLYTES Chloride Lvl 108 95 - 109 10/10/2018 [facility] ELECTROLYTES AGAP 9.3 10.0 - 20.0 10/10/2018 [facility] eGFR 89 10/10/2018 Result Comment: The eGFR [...] should be multiplied by the estimated BMI. [facility] ELECTROLYTES BUN 13 7 - 22 10/10/2018 [facility] ELECTROLYTES Glucose Lvl 123 70 - 99 10/10/2018 [facility] ELECTROLYTES Sodium Lvl 141 135 - 145 10/10/2018 [facility] ELECTROLYTES Potassium Lvl 4.3 3.5 - 5.1 10/10/2018 [facility] ELECTROLYTES Creatinine Lvl 0.72 0.50 - 1.40 10/10/2018 [facility] Monocytes # 0.8 0.0 - 0.8 10/10/2018 [facility] Lymphocytes # 2.1 1.0 - 5.5 10/10/2018 [facility] Neutrophils # 6.9 1.5 - 8.1 10/10/2018 [facility] Lymphocytes 21.4 20.0 - 40.0 10/10/2018 [facility] Monocytes 8.1 2.0 - 12.0 10/10/2018 [facility] Segs 70.2 45.0 - 75.0 10/10/2018 [facility] HEMATOLOGY Eosinophils 0.1 0.0 - 4.0 10/10/2018 [facility] Basophils 0.2 0.0 - 1.0 10/10/2018 [facility] Platelet 206 133 - 450 10/10/2018 [facility] MPV 7.4 7.4 - 10.4 10/10/2018 [facility] MCHC 33.6 32.0 - 36.0 10/10/2018 [facility] RDW 12.7 11.5 - 14.5 10/10/2018 [facility] MCH 33.1 27.0 - 31.0 10/10/2018 [facility] Hct 31.0 36.0 - 48.0 10/10/2018 [facility] MCV 98.5 80.0 - 98.0 10/10/2018 [facility] WBC 9.8 3.7 - 10.4 10/10/2018 [facility] RBC 3.15 4.20 - 5.40 10/10/2018 [facility] ELECTROLYTES AGAP 7.1 10.0 - 20.0 10/09/2018 [facility] ELECTROLYTES eGFR 96 10/09/2018 Result Comment: [...] should be multiplied by the estimated BMI. [facility] ELECTROLYTES CO2 31 24 - 32 10/09/2018 [facility] ELECTROLYTES Calcium Lvl 8.2 8.5 - 10.5 10/09/2018 [facility] ELECTROLYTES Chloride Lvl 109 95 - 109 10/09/2018 [facility] ELECTROLYTES Potassium Lvl 4.1 3.5 - 5.1 10/09/2018 [facility] ELECTROLYTES Sodium Lvl 143 135 - 145 10/09/2018 [facility] ELECTROLYTES Creatinine Lvl 0.62 0.50 - 1.40 10/09/2018 [facility] ELECTROLYTES BUN 15 7 - 22 10/09/2018 [facility] ELECTROLYTES Glucose Lvl 102 70 - 99 10/09/2018 [facility] HEMATOLOGY INR 1.08 0.85 - 1.17 10/09/2018 [facility] HEMATOLOGY PT 13.8 12.0 - 14.7 10/09/2018 [facility] HEMATOLOGY RDW 12.9 11.5 - 14.5 10/09/2018 [facility] HEMATOLOGY Platelet 226 133 - 450 10/09/2018 [facility] HEMATOLOGY MPV 7.7 7.4 - 10.4 10/09/2018 [facility] HEMATOLOGY RBC 3.40 4.20 - 5.40 10/09/2018 [facility] HEMATOLOGY WBC 10.8 3.7 - 10.4 10/09/2018 [facility] HEMATOLOGY MCHC 34.6 32.0 - 36.0 10/09/2018 [facility] HEMATOLOGY MCV 96.8 80.0 - 98.0 10/09/2018 [facility] HEMATOLOGY MCH 33.5 27.0 - 31.0 10/09/2018 [facility] HEMATOLOGY PTT 34.3 22.9 - 35.8 10/09/2018 [facility] HEMATOLOGY Monocytes # 0.6 0.0 - 0.8 10/09/2018 [facility] HEMATOLOGY Segs 86.6 45.0 - 75.0 10/09/2018 [facility] HEMATOLOGY Eosinophils 0.1 0.0 - 4.0 10/09/2018 [facility] HEMATOLOGY Basophils 0.2 0.0 - 1.0 10/09/2018 [facility] HEMATOLOGY Monocytes 5.3 2.0 - 12.0 10/09/2018 [facility] HEMATOLOGY Lymphocytes # 0.8 1.0 - 5.5 10/09/2018 [facility] HEMATOLOGY Neutrophils # 9.3 1.5 - 8.1 10/09/2018 [facility] HEMATOLOGY Lymphocytes 7.8 20.0 - 40.0 10/09/2018 [facility] SPECIAL CHEMISTRY Hgb A1C 5.3 <=5.6 % 10/09/2018 [facility] BLOOD BANK RESULTS ABO/Rh O POS 10/09/2018 [facility] BLOOD BANK RESULTS Antibody Scrn Negative (10/09/18 7:51 AM) 10/09/2018 [facility] HEMATOLOGY Eosinophils # 0.2 0.0 - 0.5 09/28/2018 [facility] BLOOD BANK RESULTS ABO/Rh O POS 09/28/2018 [facility] BLOOD BANK RESULTS Antibody Scrn Negative (09/28/18 3:47 PM) 09/28/2018 [facility] ELECTROLYTES AGAP 9.9 10.0 - 20.0 09/28/2018 [facility] ELECTROLYTES eGFR 93 09/28/2018 Result Comment: [...] should be multiplied by the estimated BMI. [facility] ELECTROLYTES Glucose Lvl 85 70 - 99 09/28/2018 [facility] ELECTROLYTES Sodium Lvl 145 135 - 145 09/28/2018 [facility] ELECTROLYTES Creatinine Lvl 0.69 0.50 - 1.40 09/28/2018 [facility] ELECTROLYTES BUN 12 7 - 22 09/28/2018 [facility] ELECTROLYTES Potassium Lvl 4.9 3.5 - 5.1 09/28/2018 [facility] ELECTROLYTES CO2 31 24 - 32 09/28/2018 [facility] ELECTROLYTES Chloride Lvl 109 95 - 109 09/28/2018 [facility] ELECTROLYTES Calcium Lvl 8.9 8.5 - 10.5 09/28/2018 [facility] HEMATOLOGY PTT 31.9 22.9 - 35.8 09/28/2018 [facility] HEMATOLOGY INR 0.96 0.85 - 1.17 09/28/2018 [facility] HEMATOLOGY PT 12.6 12.0 - 14.7 09/28/2018 [facility] BLOOD BANK RESULTS RBC product Product available (09/28/18 3:36 PM) 09/28/2018 [facility] Pathology Reports No Data Provided for This Section Diagnostic Reports Report Value Date Source Hip 1 view DX Patient Name: VALENCIA CASPER : 1955; Age: 63 years y/o Female MR: [id number] Right hip, 1 view, portable, postoperative HISTORY: Postoperative study, following right hip arthroplasty. TECHNIQUE: A single portable postoperative frontal view of the right hip was obtained. IMPRESSION: The right total hip prosthesis is in good position. There is no evidence of unexpected fracture or other complication. There is postoperative soft tissue gas. There are lateral surgical skin moody. SL: [id number] 10/09/2018 [facility] Hip 1 view DX Patient Name: VALENCIA CASPER : 1955; Age: 63 years y/o Female MR: [id number] * RIGHT HIP, intraoperative, History: Intraoperative radiographs [...] seen with the various positional maneuvers. SL: [id number] 10/09/2018 [facility] Consultation Notes No Data Provided for This Section Discharge Summaries No Data Provided for This Section History and Physicals No Data Provided for This Section Vital Signs Vital Sign Value Date Comments Source Temperature Oral (F) 98.1 F 10/15/2018 [facility] Heart Rate 70 10/15/2018 [facility] Respitory Rate 16 10/15/2018 [facility] Systolic (mm Hg) 104 10/15/2018 [facility] Diastolic (mm Hg) 70 10/15/2018 [facility] Heart Rate 69 10/15/2018 [facility] Temperature Oral (F) 97.6 F 10/15/2018 [facility] Systolic (mm Hg) 105 10/15/2018 [facility] Diastolic (mm Hg) 71 10/15/2018 [facility] Respitory Rate 16 10/15/2018 [facility] Systolic (mm Hg) 114 10/15/2018 [facility] Diastolic (mm Hg) 74 10/15/2018 [facility] Heart Rate 67 10/15/2018 [facility] Respitory Rate 18 10/15/2018 [facility] Temperature Oral (F) 97.9 F 10/15/2018 [facility] Height 167.64 cm 09/28/2018 [facility] BMI Calculated 32.15 09/28/2018 [facility] Weight 90.364 09/28/2018 [facility] Height 170.18 cm 10/10/2012 [facility] Weight 124.091 10/10/2012 [facility] Encounters Location Location Details Encounter Type Encounter Number Reason For Visit Attending Provider ADM Date DC Date Status Source [facility] MADDIE [id number] TRIGEMINAL NEURALGIA CLARI HANEY 05/23/2012 05/23/2012 Active [facility] MADDIE [id number] TRIGEMINAL NEURALGIA CLARI HANEY 10/10/2012 10/10/2012 Active [facility] Inpatient [id number] [place] 10/09/2018 10/15/2018 [facility] [place] [facility] [id number] [place] 10/31/2018 11/30/2018 [facility] [place] [facility] [id number] [place] 12/03/2018 01/02/2019 [facility] [place] [facility] MADDIE [id number] TRIGEMINAL NEURALGIA CLARI HANEY Cancel [facility] Procedures Procedure Code Date Perfomer Comments Source Cholecystectomy [id number] [facility] [place] Colonoscopy [id number] [facility] [place] Hip arthroplasty [id number] [facility] [place] Hysterectomy [id number] [facility] [place] Lumbar epidural injection [id number] [facility] [place] Revision of hip arthroplasty<sup>1</sup> [id number] 2 months after original arthroplasty [facility] [place] Sleeve resection of stomach [id number] [facility] [place] Assessment and Plan Assessment and Plan Date [...] Cessation Counseling No entered on: 10/09/18 10/09/2018 [facility] [place] Social History TypeResponse Substance Abuse Use: None. Alcohol Never Smoking Status Never smoker; Previous treatment: None; Exposure to Tobacco Smoke None; Cigarette Smoking Last 365 Days No; Reg Smoking Cessation Counseling No entered on: 10/09/18 10/09/2018 [facility] Family History No Data Provided for This Section Advance Directives No Data Provided for This Section Functional Status No Data Provided for This Section
--- OUTSIDE RECORDS SUMMARY | 2019-03-25 14:10 | XMS REPORT | Clinical Summary ---
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
== END | disposition home or self-care (01) ==
LOC: ER 14:05
DX: G50.0 Trigeminal neuralgia (principal)

== ENCOUNTER → 2019-12-12 | Day surgery (SDC) | payer MEDICARE, OTHER ==
[~2019-12-12] MED LIST changes: +BACLOFEN10 MG PO; +BUPIVACAINE 0.25% 30ML SDV INJ ONE; +BUPIVACAINE HCL 0.5% INJ 30 ML VIAL INJ ONE; +CYMBALTA30 MG PO; +FENTANYL CITRATE/PF 100MCG/2 ML INJ ONE; +IOPAMIDOL 200 MG/ML 20 ML VIAL IT ONE; +LIDOCAINE HCL 1% 30ML-PF VIAL ONE; +LIDOCAINE HCL 2% LOCAL INJ 5 ML SDV VIAL INJ ONE; -MEPERIDINE HCL INJ 50 MG/ML INJ IM ONE; +MIDAZOLAM HCL 2 MG/2 ML VIAL ONE; +ONDANSETRON HCL INJ 2MG/ML 2ML 2 MG/ML VIAL ONE; -PROMETHAZINE HCL (IM) 25 MG/ML VIAL IM ONE; +PROPOFOL IV EMULSION 10 MG/ML 20 ML VIAL ONE; +TRIAMCINOLONE ACET 40 MG/ML VIAL ONE
[2019-12-12 08:00] VITALS: BP 123/79
== END | disposition home or self-care (01) ==
LOC: OR 12-07 12:53
PROVIDERS: ATTEND Physical Medicine & Rehabilitation Pain Medicine
DX: M46.1 Sacroiliitis, not elsewhere classified (principal); G57.00 Lesion of sciatic nerve, unspecified lower limb; M79.18 Myalgia, other site; M48.062 Spinal stenosis, lumbar region with neurogenic claudication; M47.816 Spondylosis without myelopathy or radiculopathy, lumbar region; G50.0 Trigeminal neuralgia; M25.562 Pain in left knee; G89.4 Chronic pain syndrome; Z96.641 Presence of right artificial hip joint; R00.1 Bradycardia, unspecified; I10 Essential (primary) hypertension; Z88.6 Allergy status to analgesic agent; Z01.810 Encounter for preprocedural cardiovascular examination; Z01.812 Encounter for preprocedural laboratory examination; Z11.59 Encounter for screening for other viral diseases
CPT/HCPCS: 20552; G0260; 76000; 87635; 93005; J2001; J2250; J2405; J3010; J3301; Q9967

== ENCOUNTER → 2021-02-03 | Outpatient (CLI) | payer MEDICARE, OTHER ==
[~2021-02-03] MED LIST changes: -BUPIVACAINE 0.25% 30ML SDV INJ ONE; -BUPIVACAINE HCL 0.5% INJ 30 ML VIAL INJ ONE; +CENTRUM ADULTS1 EACH PO; -FENTANYL CITRATE/PF 100MCG/2 ML INJ ONE; +HYDROCODON-ACE1 EAC9 PO; +HYDROXYZINE HCL10 MG PO; -IOPAMIDOL 200 MG/ML 20 ML VIAL IT ONE; -LIDOCAINE HCL 1% 30ML-PF VIAL ONE; -LIDOCAINE HCL 2% LOCAL INJ 5 ML SDV VIAL INJ ONE; +LYRICA150 MG PO; -MIDAZOLAM HCL 2 MG/2 ML VIAL ONE; +OMEGA 3 FISH O1 EACH PO; -ONDANSETRON HCL INJ 2MG/ML 2ML 2 MG/ML VIAL ONE; -PROPOFOL IV EMULSION 10 MG/ML 20 ML VIAL ONE; -TRIAMCINOLONE ACET 40 MG/ML VIAL ONE
== END ==
LOC: CT 14:30
PROVIDERS: ATTEND Nurse Practitioner Family
DX: I48.91 Unspecified atrial fibrillation (principal); R20.0 Anesthesia of skin; R20.2 Paresthesia of skin; R42 Dizziness and giddiness
CPT/HCPCS: 70450

== ENCOUNTER → 2021-03-11 | Outpatient (CLI) | payer MEDICARE, OTHER | LOC: MAMMO 13:06 | PROVIDERS: ATTEND Family Medicine | DX: Z12.31 Encounter for screening mammogram for malignant neoplasm of breast (principal) | CPT/HCPCS: 77067 ==

== ENCOUNTER → 2021-04-08 | Outpatient (CLI) | payer MEDICARE, OTHER | LOC: MAMMO 10:17 | PROVIDERS: ATTEND Family Medicine | DX: N64.89 Other specified disorders of breast (principal) ==

== ENCOUNTER → 2024-02-28 | Day surgery (SDC) | payer MEDICARE, OTHER ==
[2024-02-26 10:25] LABS: BASOPHILS % 0.3 % (0.0-1.0); EOSINOPHILS # (AUTO) 0.3 (0.0-0.4); EOSINOPHILS % 4.4 % (0.0-6.0); HEMATOCRIT 37.4 % (34.2-44.1); HEMOGLOBIN 11.9 g/dL (12.0-16.0); LYMPHOCYTES # (AUTO) 2.1 (1.0-3.2); LYMPHOCYTES % 34.6 % (18.0-39.1); MEAN CORPUSCULAR HEMOGLOBIN 33.6 pg (28-32); MEAN CORPUSCULAR HGB CONC 31.8 g/dL (31-35); MEAN CORPUSCULAR VOLUME 105.6 fL (81-99); MONOCYTES # (AUTO) 0.6 (0.2-0.8); NEUTROPHILS # (AUTO) 3.2 (2.1-6.9); NEUTROPHILS % 51.5 % (38.7-80.0); PLATELET COUNT 255 x10e3/uL (140-360); RED BLOOD COUNT 3.54 x10e6/uL (3.6-5.1); RED CELL DISTRIBUTION WIDTH 13.1 % (11.7-14.4); WHITE BLOOD COUNT 6.13 x10e3/uL (4.8-10.8)
[2024-02-26 10:59] LABS: ALBUMIN/GLOBULIN RATIO 1.3 (0.8-2.0); ANION GAP 13.5 mmol/L (8-16); BILIRUBIN,TOTAL 0.3 mg/dL (0.2-1.2); CALCIUM 9.5 mg/dL (8.4-10.2); CREATININE, SERUM 0.91 mg/dL (0.57-1.11); POTASSIUM 4.5 mmol/L (3.5-5.1); TOTAL PROTEIN 7.1 g/dL (6.5-8.1)
[2024-02-28] VITALS (12 sets, daily range): BP systolic 82–134; BP diastolic 54–85; PULSE 59–83; RESP 12–15; TEMP 97–97.1; O2SAT 96–97
[~2024-02-28] VITALS: Ht 167.6 cm; Wt 124.7 kg
[~2024-02-28] MED LIST changes: +AMITRIPTYLINE H50 MG PO; +ASPIRIN EC81 MG PO; +CITRACAL + D M1 EACH PO; +DIGOXIN125 MCG PO; +EPINEPHRINE HCL 1:1000 1ML 1 MG/ML AMP ONE; +IOPAMIDOL 370 MG/ML 100 ML INFUS..BTL INJ ONE; +LIDOCAINE HCL 2% LOCAL INJ 5 ML SDV VIAL INJ ONE; +METOPROLOL SUCC50 MG PO; +ONDANSETRON HCL INJ 2MG/ML 2ML 2 MG/ML VIAL ONE; +PHENYLEPHRINE HCL 1% 10 MG/ML VIAL ONE; +PROPOFOL IV EMULSION 10 MG/ML 20 ML VIAL ONE; +SODIUM CHLORIDE 0.9% 100 ML ONE; +XARELTO20 MG PO
== END | disposition home or self-care (01) ==
LOC: CATH LAB 05:51
PROVIDERS: ATTEND Internal Medicine Interventional Cardiology
DX: I48.19 Other persistent atrial fibrillation (principal); R00.1 Bradycardia, unspecified; I25.118 Atherosclerotic heart disease of native coronary artery with other forms of angina pectoris; I10 Essential (primary) hypertension; E78.2 Mixed hyperlipidemia; K21.9 Gastro-esophageal reflux disease without esophagitis; I89.0 Lymphedema, not elsewhere classified; E66.01 Morbid (severe) obesity due to excess calories; F32.A Depression, unspecified; Z88.6 Allergy status to analgesic agent; Z88.8 Allergy status to other drugs, medicaments and biological substances; Z79.02 Long term (current) use of antithrombotics/antiplatelets; Z79.82 Long term (current) use of aspirin; Z79.899 Other long term (current) drug therapy; Z68.41 Body mass index [BMI] 40.0-44.9, adult; Z82.49 Family history of ischemic heart disease and other diseases of the circulatory system
CPT/HCPCS: 36415; 71275; 80053; 85025; 92960; J0171; J2001; J2371; J2405; J2704; J7050; Q9967

== ENCOUNTER 2024-06-27 10:25 | Day surgery (SDC) | payer MEDICARE, OTHER ==
[~2024-06-27] VITALS: Ht 167.6 cm; Wt 131.5 kg
[2024-06-27] VITALS (9 sets, daily range): BP systolic 122–143; BP diastolic 70–98; PULSE 63–70; RESP 10–17; TEMP 96.2–97; O2SAT 97–100
[~2024-06-27 10:25] MED LIST changes: -EPINEPHRINE HCL 1:1000 1ML 1 MG/ML AMP ONE; -IOPAMIDOL 370 MG/ML 100 ML INFUS..BTL INJ ONE; -LIDOCAINE HCL 2% LOCAL INJ 5 ML SDV VIAL INJ ONE; -ONDANSETRON HCL INJ 2MG/ML 2ML 2 MG/ML VIAL ONE; -PHENYLEPHRINE HCL 1% 10 MG/ML VIAL ONE; -PROPOFOL IV EMULSION 10 MG/ML 20 ML VIAL ONE; -SODIUM CHLORIDE 0.9% 100 ML ONE
[2024-06-27 10:47] LABS: BASOPHILS % 0.6 % (0.0-1.0); EOSINOPHILS # (AUTO) 0.3 (0.0-0.4); EOSINOPHILS % 4.7 % (0.0-6.0); HEMATOCRIT 41.2 % (34.2-44.1); HEMOGLOBIN 12.7 g/dL (12.0-16.0); LYMPHOCYTES % 28.8 % (18.0-39.1); MEAN CORPUSCULAR HEMOGLOBIN 35.2 pg (28-32); MEAN CORPUSCULAR HGB CONC 30.8 g/dL (31-35); MEAN CORPUSCULAR VOLUME 114.1 fL (81-99); MONOCYTES # (AUTO) 0.5 (0.2-0.8); MONOCYTES % 7.8 % (4.4-11.3); NEUTROPHILS # (AUTO) 3.9 (2.1-6.9); NEUTROPHILS % 57.7 % (38.7-80.0); PLATELET COUNT 276 x10e3/uL (140-360); RED BLOOD COUNT 3.61 x10e6/uL (3.6-5.1); RED CELL DISTRIBUTION WIDTH 15.5 % (11.7-14.4); WHITE BLOOD COUNT 6.76 x10e3/uL (4.8-10.8)
[2024-06-27 11:26] LABS: ALBUMIN 3.6 g/dL (3.5-5.0); ALBUMIN/GLOBULIN RATIO 0.8 (0.8-2.0); ANION GAP 18.1 mmol/L (8-16); BILIRUBIN,TOTAL 0.3 mg/dL (0.2-1.2); CALCIUM 9.7 mg/dL (8.4-10.2); CREATININE, SERUM 1.2 mg/dL (0.57-1.11); POTASSIUM 4.1 mmol/L (3.5-5.1); TOTAL PROTEIN 7.9 g/dL (6.5-8.1)
[2024-06-27] MEDS ORDERED: FLECAINIDE ACE100 MG PO (12:44)
[2024-06-27] MEDS ORDERED: ATORVASTATIN CA20 MG PO (12:44)
[2024-06-27] MEDS ORDERED: SODIUM CHLORIDE 0.9% 1000ML 1,000 ML ONE (13:40)
[2024-06-27] MEDS ORDERED: BENZOCAINE 20% SPR 60 ML CAN ONE (13:40)
== END 2024-06-27 16:34 | disposition home or self-care (01) ==
LOC: CATH LAB 10:25
PROVIDERS: ATTEND Internal Medicine
DX: I48.19 Other persistent atrial fibrillation (principal); I25.10 Atherosclerotic heart disease of native coronary artery without angina pectoris; I10 Essential (primary) hypertension; E78.2 Mixed hyperlipidemia; G47.33 Obstructive sleep apnea (adult) (pediatric); E66.01 Morbid (severe) obesity due to excess calories; M54.9 Dorsalgia, unspecified; N28.9 Disorder of kidney and ureter, unspecified; Z79.02 Long term (current) use of antithrombotics/antiplatelets; Z79.82 Long term (current) use of aspirin; Z79.899 Other long term (current) drug therapy; Z68.42 Body mass index [BMI] 45.0-49.9, adult; Z95.818 Presence of other cardiac implants and grafts; Z82.49 Family history of ischemic heart disease and other diseases of the circulatory system
CPT/HCPCS: 36415; 80053; 85025; 93320; 93325; C8925; J7030; 93307; 93312